=== PATIENT | female | born 1965 | race Caucasian/White ===

== ENCOUNTER 2016-10-24 11:15 | Emergency (ER) | payer BC ==
[~2016-10-24] VITALS: Ht 165.1 cm; Wt 62.7 kg
[2016-10-24 11:22] VITALS: TEMP 36.9; Ht 165.1 cm; Wt 62.7 kg
[2016-10-24 12:01] LABS: HEMATOCRIT 45.1 % (37-47); MEAN CELL VOLUME 94.9 fL (80-100); MEAN CORPUSCULAR HEMOGLOBIN 33.5 pg (25-34); MEAN CORPUSCULAR HGB CONC 35.3 g/dl (32-36); MEAN PLATELET VOLUME 10.6 fL (7.4-10.4); PLATELET COUNT 227 K/uL (130-400); RED BLOOD COUNT 4.75 M/uL (4.2-5.4); WHITE BLOOD COUNT 2.92 K/uL (4.8-10.8)
[2016-10-24 12:06] LABS: URINE APPEARANCE CLEAR (CLEAR); URINE BILIRUBIN NEG (NEG); URINE COLOR DK YELLOW; URINE EPITHELIAL CELL AUTO >30 /lpf (0-5); URINE NITRITE NEG (NEG); URINE PH >= 9.0 (4.5-7.5); UROBILINOGEN NEG (NEG); ZZUR CULT IF INDIC CLEAN CATCH YES
[2016-10-24 12:10] LABS: PROTHROMBIN TIME (PATIENT) 10.7 SECONDS (9.0-12.0)
[2016-10-24 12:12] LABS: SULFASALICYLIC ACID NEG (NEG)
--- NOTE | 2016-10-24 12:26 | DIAGNOSTIC IMAGING REPORT ---
CHEST ONE VIEW PORTABLE CLINICAL HISTORY: Atypical chest pain COMPARISON STUDY: 08/11/2014 FINDINGS: The cardiac and mediastinal contours are normal. There is no evidence of focal pulmonary consolidation. There is no evidence of failure. No pleural effusions are visualized.[ IMPRESSION: No active disease in the chest. Electronically signed by: Jorge Petty M.D. 10/24/2016 12:25 PM Dictated Date/Time: 10/24/2016 12:23 PM
[2016-10-24 12:27] LABS: MANUAL MICROSCOPIC REQUIRED? NO; REVIEW REQ? YES
[2016-10-24 12:30] LABS: ALB/GLOB RATIO 1.1 (0.9-2); ALKALINE PHOSPHATASE 60 U/L (45-117); ALT/SGPT 135 U/L (12-78); AST/SGOT 72 U/L (15-37); BLOOD UREA NITROGEN 8 mg/dl (7-18); BUN/CREATININE RATIO 12.6 (10-20); CALCIUM 9.1 mg/dl (8.5-10.1); CARBON DIOXIDE 27 mmol/L (21-32); CHLORIDE 106 mmol/L (98-107); CREATININE 0.66 mg/dl (0.60-1.20); GLUCOSE 92 mg/dl (70-99); POTASSIUM 4.1 mmol/L (3.5-5.1); SODIUM 143 mmol/L (136-145)
[2016-10-24] MEDS ORDERED: SODIUM CHLORIDE 0.9% 1000ML 1,000 ML IV STA ×2 (12:55)
[2016-10-24] MEDS ORDERED: KETOROLAC TROMETHAMINE 30 MG/ML VIAL IV STA (12:57)
--- NOTE | 2016-10-24 15:11 | EMERGENCY ROOM VISIT NOTE ---
History First contact with patient: 12:33 Chief Complaint: FLU LIKE SX Stated Complaint: CHEST PAIN, FLU Nursing Triage Summary: pt c/o n/v/d x2 days. pt c/o mid sternal chest pain that started this morning after throwing up. pt states she has hx of costachondritis. pt denies taking anything for pain [employer] History of Present Illness The patient is a 51 year old female who presents to the Emergency Room via private vehicle with complaints of "chest pain, flu". The patient states that 2 nights ago she developed stomach cramps, as well as nausea and vomiting. She states that this morning she felt shaky, and thirsty and had a low appetite. She states that she continues to feel thirsty and slightly shaky. She states she does not feel well. There is associated substernal chest pain that she rates as a 6/10. She states she has had this before and has a history of costochondritis. She states that she continually has substernal pain, but with the vomiting this morning is flared up. She this time denies any shortness of breath, abdominal pain, smoking, or drug use, history of PE or DVT, history of hypertension or high cholesterol. Review of Systems A complete 10-point Review of Systems was discussed with the patient, with pertinent positives and negatives listed in the History of Present Illness. All remaining Review of Systems questions can be considered negative unless otherwise specified. Past Medical/Surgical History Medical Problems: (1) Acute duodenal ulcer Family History Diabetes mellitus Heart disease Social History Smoking Status: Never Smoker Alcohol Use: occasionally Marital Status: Housing Status: lives with family Occupation Status: employed Current/Historical Medications No Active Prescriptions or Reported Meds Allergies Coded Allergies: Amoxicillin (Verified Allergy, Intermediate, RASH/HIVES, 11/09/15) Azithromycin (Verified Adverse Reaction, Mild, GI intolerance, 11/09/15) Physical Exam Vital Signs Date Time Temp Pulse Resp B/P Pulse Ox O2 Delivery O2 Flow Rate FiO2 10/24/16 16:15 85 18 106/65 96 10/24/16 14:35 68 20 136/82 97 Room Air 10/24/16 13:05 72 20 128/79 98 Room Air 10/24/16 12:06 98 Room Air 10/24/16 12:03 70 10/24/16 11:52 74 20 138/78 98 Room Air 10/24/16 11:22 36.9 78 18 135/83 97 Room Air Physical Exam VITAL SIGNS - Vital signs and nursing notes were reviewed. Patient is afebrile , normotensive, non-tachycardic and is saturating on room air 97%. GENERAL -51-year-old female appearing her stated age who is in no acute distress. She is nontoxic in appearance. Communicates well with provider and answers questions appropriately. SKIN - Without rashes. No petechial rashes. HEAD - NC/AT. EYES - PERRL with EOMI bilaterally. Sclera anicteric. Palpebral conjunctiva pink and moist with no injection noted. EARS - No deformities of external structures noted on gross examination bilaterally. No pain elicited with palpation of the tragus bilaterally. External auditory canals without discharge or otorrhea. Tympanic membranes pearly lechuga without retraction or bulging. No fluid or purulent material visualized behind the TM. Handle of malleus, umbo, cone of light, pars tensa/ flaccid all easily visualized. NOSE - Midline and without cyanosis. No epistaxis or purulent drainage noted. Septum midline without deviation or septal hematoma noted. MOUTH/OROPHARYNX - Without perioral cyanosis. Buccal mucosa pink and moist and without leukoplakia. Tongue midline with equal elevation of palate bilaterally. No tonsillar hypertrophy, erythema, or exudates noted. Good dentition noted. NECK - Neck with FROM. Supple to palpation. No lymphadenopathy noted. No nuchal rigidity. No meningismus. No signs of encephalitis. LUNGS - Chest wall symmetric without accessory muscle use, intercostals retractions, or central cyanosis. Normal vesicular breath sounds CTA B/L. No wheezes, rales, or rhonchi appreciated. CARDIAC - RRR with S1/S2. No murmur, rubs, or gallops appreciated. ABDOMEN - Abdominal contour without pulsations or visible masses. BS normoactive all four quadrants. No tenderness, palpable masses, hepatosplenomegaly, or ascites noted. EXTREMITIES - No clubbing or peripheral cyanosis. No pretibial edema present. +5 /5 strength noted in UE/LE bilaterally. NEUROLOGIC - Cranial nerves II through XII grossly intact. Sensory intact to light touch throughout. Patellar reflexes +2/4. PSYCH - Pt is very pleasant and interacts well with examiner. Medical Decision & Procedures ER Provider Diagnostic Interpretation: CHEST ONE VIEW PORTABLE CLINICAL HISTORY: Atypical chest pain COMPARISON STUDY: 08/11/2014 FINDINGS: The cardiac and mediastinal contours are normal. There is no evidence of focal pulmonary consolidation. There is no evidence of failure. No pleural effusions are visualized.[ IMPRESSION: No active disease in the chest. Electronically signed by: Jorge Petty M.D. 10/24/2016 12:25 PM Dictated Date/Time: 10/24/2016 12:23 PM Laboratory Results 10/24/16 11:40 10/24/16 11:40 Test 10/24/16 11:40 10/24/16 12:28 10/24/16 13:10 10/24/16 15:00 Red Blood Count 4.75 M/uL (4.2-5.4) Mean Corpuscular Volume 94.9 fL (80-100) Mean Corpuscular Hemoglobin 33.5 pg (25-34) Mean Corpuscular Hemoglobin Concent 35.3 g/dl (32-36) RDW Standard Deviation 42.7 fL (36.4-46.3) RDW Coefficient of Variation 12.3 % (11.5-14.5) Mean Platelet Volume 10.6 fL (7.4-10.4) Prothrombin Time 10.7 SECONDS (9.0-12.0) Prothromb Time International Ratio 1.0 (0.9-1.1) Activated Partial Thromboplast Time 25.2 SECONDS (21.0-31.0) Partial Thromboplastin Ratio 1.0 Urine Color DK YELLOW Urine Appearance CLEAR (CLEAR) Urine pH >= 9.0 (4.5-7.5) Urine Specific [place] 1.020 (1.000-1.030) Urine Protein NEG (NEG) Urine Glucose (UA) NEG (NEG) Urine Ketones NEG (NEG) Urine Occult Blood NEG (NEG) Urine Nitrite NEG (NEG) Urine Bilirubin NEG (NEG) Urine Urobilinogen NEG (NEG) Urine Leukocyte Esterase NEG (NEG) Urine WBC (Auto) 10-30 /hpf (0-5) Urine RBC (Auto) 0-4 /hpf (0-4) Urine Hyaline Casts (Auto) 5-10 /lpf (0-5) Urine Epithelial Cells (Auto) >30 /lpf (0-5) Urine Bacteria (Auto) 2+ (NEG) Urine Renal Epithelial Cells 5-10 /lpf (0-5) Anion Gap 10.0 mmol/L (3-11) Est Creatinine Clear Calc Drug Dose 89.7 ml/min Estimated GFR () 117.7 Estimated GFR (Non- 101.6 BUN/Creatinine Ratio 12.6 (10-20) Calcium Level 9.1 mg/dl (8.5-10.1) Total Bilirubin 0.3 mg/dl (0.2-1) Aspartate Amino Transf (AST/SGOT) 72 U/L (15-37) Alanine Aminotransferase (ALT/SGPT) 135 U/L (12-78) Alkaline Phosphatase 60 U/L (45-117) Total Creatine Kinase 55 U/L (26-192) Creatine Kinase MB < 0.5 ng/ml (0.5-3.6) Creatine Kinase MB Ratio (0-3.0) Total Protein 7.5 gm/dl (6.4-8.2) Albumin 4.0 gm/dl (3.4-5.0) Globulin 3.5 gm/dl (2.5-4.0) Albumin/Globulin Ratio 1.1 (0.9-2) Bedside Troponin I 0.000 ng/ml (0-0.045) Influenza Type A Antigen Neg for Influ A (NEG) Influenza Type B Antigen Neg for Influ B (NEG) Troponin I < 0.015 ng/ml (0-0.045) Medications Administered Medications (Trade) Dose Ordered Sig/Sosa Route Start Time Stop Time Status Last Admin Dose Admin Sodium Chloride 1,000 ml @ 999 mls/hr Q1H1M STAT IV 10/24/16 12:55 10/24/16 13:55 DC 10/24/16 12:59 999 MLS/HR Sodium Chloride (Nss 1000ml) 1,000 ml @ 200 mls/hr Q5H STAT IV 10/24/16 12:55 10/24/16 16:28 DC 10/24/16 12:59 200 MLS/HR Ketorolac Tromethamine (Toradol Inj) 30 mg NOW STAT IV 10/24/16 12:57 10/24/16 12:58 DC 10/24/16 13:07 30 MG Medical Decision Patient was seen in a fight with his above. After obtaining a thorough history and physical examination IV access was initiated and a CBC, coagulation studies , CMP, urine influenza as well as amylase and lipase secondary to subjective and objective findings. The patient presents with chest pain and general malaise which the patient notes feels exactly like her costochondritis however given her other symptoms is concerned that it could be her heart. She requests testing for her heart. CBC reveals a decreased white blood cell count at 2.92, hemoglobin stable. Coagulation studies normal. CMP reveals normal electrolytes and renal function. There is an interval elevation of AST and nail to yet 70-135 respectively. Troponin was negative 3. EKG reveals normal sinus rhythm with no significant change compared to previous. A d-dimer was ordered but the patient declined this. She feels that this is her costochondritis. Given her troponin negative 3 I do not suspect any emergent cardiac etiology. She was provided Toradol and was allowed to eat and drink as well as hydrated with IV fluids with good relief. She then stated she like to go home as she felt much better. Chest x-ray results as above, within normal limits. The patient appears to have a history of costochondritis as well as a likely viral underlying illness with a low white blood cell count. She also has interval development of elevated liver enzymes. She was instructed to follow-up with her family doctor for recheck as well as repeat of her white blood cell count and liver enzymes. She denied any Tylenol use recently. She does know she is drinking multiple bottles of wine per week. She was instructed to slowly cut back on this. I do not suspect any emergent underlying cause of her presentation today. She was educated upon worrisome symptoms which to return, at questions prior to discharge and was discharged home in good condition. In the evaluation treatment this patient the following differential diagnoses were entertained: ACS, [place], PE, costochondritis, anxiety, pneumonia, pneumothorax , dissection, among others. Impression Primary Impression: Influenza-like symptoms Additional Impressions: low white blood cell count Elevated LFTs Chest wall discomfort Departure Information Dispostion Home / Self-Care Condition GOOD Prescriptions No Active Prescriptions or Reported Meds Referrals Mariusz Vela M.D. (PCP) Patient Instructions My [facility] Additional Instructions You were seen in the emergency department for your influenza-like symptoms and chest pain. EKG and heart chemicals have helped to rule out emergent heart causes. Your liver function tests were found to be elevated in your white blood cell count was low today. It is recommended he have these repeated with your family doctor by calling their office later today or first thing tomorrow to schedule follow-up. Please follow-up with your family doctor regarding today's visit. Please return to the emergency department with any new/concerning symptoms. Problem Qualifiers
[2016-10-24 16:15] VITALS: BP 106/65; PULSE 85; O2SAT 96
== END 2016-10-24 16:16 | disposition home or self-care (01) ==
LOC: C.EDB 11:17 → C.EDC 16:16
DX: R07.89 Other chest pain (principal); J11.1 Influenza due to unidentified influenza virus with other respiratory manifestations; E78.5 Hyperlipidemia, unspecified; D72.9 Disorder of white blood cells, unspecified; Z88.1 Allergy status to other antibiotic agents; Z88.2 Allergy status to sulfonamides; Z83.3 Family history of diabetes mellitus; Z82.49 Family history of ischemic heart disease and other diseases of the circulatory system

== ENCOUNTER 2019-04-09 07:24 | Observation (INO) ==
[2019-04-09] MEDS ORDERED: ASPIRIN CHEW 324 MG PO STA (07:42)
[2019-04-09] MEDS ORDERED: ONDANSETRON INJ 2 MG/ML 2 ML VIAL IV STA ×2 (07:42→08:26)
[2019-04-09] MEDS ORDERED: MoRPHine SULFATE 2 MG/ML CARP IV STA ×3 (07:42→10:58)
[2019-04-09 07:53] LABS: Basophils # (auto) 0.02 K/uL (0-0.2); Basophils % (auto) 0.4 %; Eosinophils # (auto) 0.06 K/uL (0-0.5); Eosinophils % (auto) 1.1 %; Hematocrit (blood only) 46.1 % (37-47); Hemoglobin 15.8 g/dL (12.0-16.0); Immature Granulocytes # (auto) 0.02 K/uL (0.00-0.02); Immature Granulocytes % (auto) 0.4 %; Lymphocytes # (auto) 2.14 K/uL (1.2-3.4); Lymphocytes % (auto) 37.6 %; Mean Corpuscular Hgb Conc 34.3 g/dL (32-36); Mean Corpuscular Volume 90.6 fL (80-100); Mean Platelet Volume 10.3 fL (7.4-10.4); Monocytes % (auto) 5.3 %; Neutrophils # (auto) 3.15 K/uL (1.4-6.5); Neutrophils % (auto) 55.2 %; Platelet Count 192 K/uL (130-400); RDW Coefficient of Variation 13.5 % (11.5-14.5); RDW Standard Deviation 44.6 fL (36.4-46.3); Red Blood Count 5.09 M/uL (4.2-5.4); White Blood Count 5.69 K/uL (4.8-10.8)
[2019-04-09 08:00] LABS: Albumin Level 4.3 gm/dl (3.4-5.0); BUN Creatinine Ratio 14.5 (10-20); Calcium 9.1 mg/dl (8.5-10.1); Creatinine Clr Calc Pharmacy 71.5 ml/min; Est GFR (African American) 96.2; Potassium 3.4 mmol/L (3.5-5.1)
[2019-04-09 08:03] LABS: Albumin Globulin Ratio 1.2 (0.9-2); Bilirubin,Total 0.6 mg/dl (0.2-1); Globulin 3.5 gm/dl (2.5-4.0); Total Protein 7.8 gm/dl (6.4-8.2)
[2019-04-09 08:04] LABS: Partial Thromboplastin Ratio 0.9; Partial Thromboplastin Time 24.3 Seconds (21.0-31.0)
[2019-04-09 08:05] LABS: D Dimer 2440 ug/L FEU (0-500)
--- NOTE | 2019-04-09 08:10 | XRay Report ---
SINGLE VIEW CHEST CLINICAL HISTORY: Atypical chest pain. FINDINGS: An AP, portable, upright chest radiograph is compared to study dated 10/15/2018. The cardiom ediastinal silhouette is unremarkable. The lungs and pleural spaces are clear. No pneumothorax is see n. The bony thorax is grossly intact. There is thoracolumbar scoliosis. IMPRESSION: No active disease in the chest. Electronically signed by: Kale De Jesus M.D. 04/09/2019 8:08 AM
[2019-04-09 08:20] LABS: Troponin I < 0.015 ng/ml (0-0.045)
[2019-04-09 08:24] LABS: Lyme Ab IgG w/WB Rflx Negative (Negative)
[2019-04-09 08:30] LABS: Lyme Ab IgM w/WB Rflx Negative (Negative)
[2019-04-09] MEDS ORDERED: OPTIRAY 320 125ml IV PRN (08:52)
--- NOTE | 2019-04-09 09:01 | Emergency Department Note ---
History of Present Illness General Chief complaint: Chest Pain Stated complaint: CHEST PAIN AND DIZZY Time Seen by Provider: 04/09/19 07:36 History of Present Illness Maximum Pain Intensity: 7 This is a 54-year-old female that presents to the emergency department via private vehicle with complaints of "chest pain and dizziness". The patient states that she over the past few days has not felt well and notes she has been under a lot of stress. She states that she awoke today around 5 AM with chest pressure, and pain throughout the diffuse chest. She rates the overall pain in the chest currently as a 7/10. She notes a history of costochondritis but this feels different. She notes a significant past medical history in the family noting that her brother at age 55 from heart and kidney related elements and her mother passed age of 72 from a heart failure. She notes that her father also had bypass surgery for the heart. With her chest pain today she has associated shortness of breath and feels quite nauseous. She did have some vomiting. She denies any spicy foods in the past 12 hours and only sips of water. She denies any other beverages and denies alcohol use in the past 12 hours. She has never felt like this before. Home Medications Home Medications Medication Instructions Recorded Confirmed Type lorazepam 0.5 mg PO BID PRN 10/15/18 04/09/19 History multivitamin 1 tab PO QAM 10/15/18 04/09/19 History fluoxetine 20 mg PO QAM 04/09/19 04/09/19 History Allergies Allergy/AdvReac Type Severity Reaction Status Date / Time amoxicillin Allergy Intermediate RASH/HIVES Verified 04/09/19 08:13 mivacurium AdvReac Mild GI Verified 04/09/19 08:13 intolerance Past Med/Surg History Medical History Alcohol use (Chronic) Anxiety and depression (Chronic) Alcoholism Chest pain (Acute) Alcoholic gastritis (Resolved) Family History Brother Coronary heart disease Fatal CT age 55 Diabetes Father Coronary heart disease Diabetes Hypertension Mother Coronary heart disease Social History Preferred Language: Swedish Communication Ability: Effective Visual Impairment: No Limitations 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: Normal Entry Specialist Required: No Beliefs That Will Affect Care: None Current Living Situation: Spouse Other Information That Helps Us Care for You: No Feels Safe at Home: Yes Safety Concerns: Feels Safe At This Time Smoking Status: Never smoker Do You Dip or Chew Tobacco: No ; Second Hand Exposure: No ; Tobacco Cessation Education Requested by Patient: No Hx Alcohol Use: Yes Alcohol type: wine Hx Substance Use: No Review of Systems A total of 10 systems reviewed and were otherwise negative Physical Exam Vital Signs Vital Signs - 24 hr 04/09/19 07:29 04/09/19 07:32 04/09/19 07:51 Temperature 36.8 C Temperature Source Oral Sepsis Recent Fever Within 48 Hours No Sepsis Action Taken by Nursing No Action Required Pulse Rate 122 H Pulse Rate [Right Finger] 94 H Respiratory Rate 22 20 Respiratory Effort / Characteristics Non-Labored Spontaneous Non-Labored Respiratory Depth Normal Normal Blood Pressure 148/101 H Blood Pressure [Right Arm] 127/78 Blood Pressure Mean 116 Blood Pressure Mean [Right Arm] 94 Blood Pressure Position Sitting Pulse Oximetry 96 97 Oxygen Delivery Method Room Air Room Air Room Air 04/09/19 07:59 04/09/19 08:30 04/09/19 09:02 Temperature Temperature Source Sepsis Recent Fever Within 48 Hours Sepsis Action Taken by Nursing Pulse Rate Pulse Rate [Right Finger] 88 78 84 Respiratory Rate 20 18 20 Respiratory Effort / Characteristics Non-Labored Respiratory Depth Normal Blood Pressure Blood Pressure [Right Arm] 138/85 119/72 118/70 Blood Pressure Mean Blood Pressure Mean [Right Arm] 102 87 86 Blood Pressure Position Pulse Oximetry 96 96 95 Oxygen Delivery Method Room Air Room Air Room Air 04/09/19 10:00 04/09/19 10:30 Temperature Temperature Source Sepsis Recent Fever Within 48 Hours Sepsis Action Taken by Nursing Pulse Rate Pulse Rate [Right Finger] 86 Respiratory Rate 14 20 Respiratory Effort / Characteristics Respiratory Depth Blood Pressure Blood Pressure [Right Arm] 128/74 119/72 Blood Pressure Mean Blood Pressure Mean [Right Arm] 92 87 Blood Pressure Position Pulse Oximetry 98 98 Oxygen Delivery Method Room Air Room Air VITAL SIGNS - Vital signs and nursing notes were reviewed. Stable and afebrile. GENERAL - 54-year-old female appearing her stated age who is in no acute distress. There is a smell of alcohol on the breath. Communicates well with provider and answers questions appropriately. SKIN - Without rashes. No meningeal or petechial rash. HEAD - NC/AT. EYES - PERRL with EOMI bilaterally. Sclera anicteric. EARS - No deformities of external structures noted on gross examination bilaterally. External auditory canals without discharge or otorrhea. Tympanic membranes pearly lechuga without retraction or bulging. No fluid or purulent material visualized behind the TM. Handle of malleus, umbo, cone of light, pars tensa/flaccid all easily visualized. NOSE - Midline and without cyanosis. No epistaxis or purulent drainage noted. Septum midline without deviation or septal hematoma noted. MOUTH/OROPHARYNX - Without perioral cyanosis. Buccal mucosa pink and moist and without leukoplakia. Tongue midline with equal elevation of palate bilaterally. No tonsillar hypertrophy, erythema, or exudates noted. Fair dentition noted. NECK - Neck with FROM. Supple to palpation. No lymphadenopathy noted. No nuchal rigidity. LUNGS - Chest wall symmetric without accessory muscle use, intercostals retractions, or central cyanosis. Normal vesicular breath sounds CTA B/L. No wheezes, rales, or rhonchi appreciated. CARDIAC - RRR with S1/S2. No murmur, rubs, or gallops appreciated. ABDOMEN - Abdominal contour normal without pulsations or visible masses. BS normoactive all four quadrants. No tenderness, palpable masses, hepatosplen omegaly, or ascites noted. EXTREMITIES - No clubbing or peripheral cyanosis. No pretibial edema present. +5/5 strength noted in UE/LE bilaterally. NEUROLOGIC - Cranial nerves II through XII grossly intact. Sensory intact to light touch throughout. PSYCH - A&O, and cooperates fully with examiner. Pt is very pleasant and interacts well with examiner. Course Administered Medications Discontinued Medications Aspirin (Aspirin) 324 mg PO NOW STA Stop: 04/09/19 07:43 Last Admin: 04/09/19 07:52 Dose: 324 mg Documented by: [id number] Ioversol (Optiray 320 125ml) 119 ml IV ONCE PRN PRN Reason: Interaction Checking Stop: 04/13/19 08:51 Last Admin: 04/09/19 08:53 Dose: 119 ml Documented by: [id number] Morphine Sulfate (Morphine Sulfate) 2 mg IV NOW STA Stop: 04/09/19 07:43 Last Admin: 04/09/19 07:52 Dose: 2 mg Documented by: [id number] Morphine Sulfate (Morphine Sulfate) 2 mg IV NOW STA Stop: 04/09/19 08:27 Last Admin: 04/09/19 08:31 Dose: 2 mg Documented by: [id number] Morphine Sulfate (Morphine Sulfate) 2 mg IV NOW STA Stop: 04/09/19 10:59 Last Admin: 04/09/19 11:07 Dose: 2 mg Documented by: [id number] Ondansetron HCl (Zofran) 4 mg IV NOW STA Stop: 04/09/19 07:43 Last Admin: 04/09/19 07:52 Dose: 4 mg Documented by: [id number] Ondansetron HCl (Zofran) 4 mg IV NOW STA Stop: 04/09/19 08:27 Last Admin: 04/09/19 08:30 Dose: 4 mg Documented by: [id number] Medical Decision Making Laboratory Data Result diagrams: 04/09/19 07:35 04/09/19 07:35 Lab Results 04/09/19 04/09/19 04/09/19 Range/Units 07:35 07:35 07:35 WBC 5.69 (4.8-10.8) K/uL RBC 5.09 (4.2-5.4) M/uL Hgb 15.8 (12.0-16.0) g/dL Hct 46.1 (37-47) % MCV 90.6 (80-100) fL MCH 31.0 (25-34) pg MCHC 34.3 (32-36) g/dL RDW Std Deviation 44.6 (36.4-46.3) fL RDW Coeff of Diamond 13.5 (11.5-14.5) % Plt Count 192 (130-400) K/uL MPV 10.3 (7.4-10.4) fL Immature Gran % (Auto) 0.4 % Neut % (Auto) 55.2 % Lymph % (Auto) 37.6 % [place] % (Auto) 5.3 % Eos % (Auto) 1.1 % Baso % (Auto) 0.4 % Immature Gran # (Auto) 0.02 (0.00-0.02) K/uL Neut # (Auto) 3.15 (1.4-6.5) K/uL Lymph # (Auto) 2.14 (1.2-3.4) K/uL [place] # (Auto) 0.30 (0.11-0.59) K/uL Eos # (Auto) 0.06 (0-0.5) K/uL Baso # (Auto) 0.02 (0-0.2) K/uL PT 10.0 (9.0-12.0) Seconds INR 1.0 (0.9-1.1) APTT 24.3 (21.0-31.0) Seconds PTT Ratio 0.9 D-Dimer 2440 H* (0-500) ug/L FEU Sodium 140 (136-145) mmol/L Potassium 3.4 L (3.5-5.1) mmol/L Chloride 98 (98-107) mmol/L Carbon Dioxide 28 (21-32) mmol/L Anion Gap 14.0 H (3-11) BUN 12 (7-18) mg/dl Creatinine 0.80 (0.6-1.2) mg/dl Est Cr Clr Drug Dosing 71.5 ml/min Est GFR ( Amer) 96.2 Est GFR (Non-Af Amer) 83.0 BUN/Creatinine Ratio 14.5 (10-20) Glucose 145 H (70-99) mg/dl Calcium 9.1 (8.5-10.1) mg/dl Magnesium 2.0 (1.8-2.4) mg/dl Total Bilirubin 0.6 (0.2-1) mg/dl AST 129 H (15-37) U/L ALT 117 H (12-78) U/L Alkaline Phosphatase 58 (45-117) U/L Troponin I (0-0.045) ng/ml Total Protein 7.8 (6.4-8.2) gm/dl Albumin 4.3 (3.4-5.0) gm/dl Globulin 3.5 (2.5-4.0) gm/dl Albumin/Globulin Ratio 1.2 (0.9-2) Lipase 119 (73-393) U/L TSH (0.300-4.500) uIu/ml Ethyl Alcohol mg/dL (0-3) mg/dl Lyme Disease IgG Ab (Negative) Lyme Disease IgM Ab (Negative) 04/09/19 04/09/19 04/09/19 Range/Units 07:35 07:35 08:20 WBC (4.8-10.8) K/uL RBC (4.2-5.4) M/uL Hgb (12.0-16.0) g/dL Hct (37-47) % MCV (80-100) fL MCH (25-34) pg MCHC (32-36) g/dL RDW Std Deviation (36.4-46.3) fL RDW Coeff of Diamond (11.5-14.5) % Plt Count (130-400) K/uL MPV (7.4-10.4) fL Immature Gran % (Auto) % Neut % (Auto) % Lymph % (Auto) % [place] % (Auto) % Eos % (Auto) % Baso % (Auto) % Immature Gran # (Auto) (0.00-0.02) K/uL Neut # (Auto) (1.4-6.5) K/uL Lymph # (Auto) (1.2-3.4) K/uL [place] # (Auto) (0.11-0.59) K/uL Eos # (Auto) (0-0.5) K/uL Baso # (Auto) (0-0.2) K/uL PT (9.0-12.0) Seconds INR (0.9-1.1) APTT (21.0-31.0) Seconds PTT Ratio D-Dimer (0-500) ug/L FEU Sodium (136-145) mmol/L Potassium (3.5-5.1) mmol/L Chloride (98-107) mmol/L Carbon Dioxide (21-32) mmol/L Anion Gap (3-11) BUN (7-18) mg/dl Creatinine (0.6-1.2) mg/dl Est Cr Clr Drug Dosing ml/min Est GFR ( Amer) Est GFR (Non-Af Amer) BUN/Creatinine Ratio (10-20) Glucose (70-99) mg/dl Calcium (8.5-10.1) mg/dl Magnesium (1.8-2.4) mg/dl Total Bilirubin (0.2-1) mg/dl AST (15-37) U/L ALT (12-78) U/L Alkaline Phosphatase (45-117) U/L Troponin I < 0.015 (0-0.045) ng/ml Total Protein (6.4-8.2) gm/dl Albumin (3.4-5.0) gm/dl Globulin (2.5-4.0) gm/dl Albumin/Globulin Ratio (0.9-2) Lipase (73-393) U/L TSH 0.744 (0.300-4.500) uIu/ml Ethyl Alcohol mg/dL 233.9 H (0-3) mg/dl Lyme Disease IgG Ab Negative (Negative) Lyme Disease IgM Ab Negative (Negative) Imaging Data Radiologist's Impression: CT angio chest PE protocol CLINICAL HISTORY: 54 years-old Female presenting with atypical chest pain, dyspnea, tachycardia, elevated d-dimer, shortness of breath. TECHNIQUE: Multidetector CT angiography of the chest was performed after administration of intravenous contrast. 3-D volumetric and/or maximum intensity projection (MIP) images were subsequently reconstructed for review. IV contrast: 119 mL of Optiray 320. One or more dose lowering techniques were used consistent with the principles of ALARA (as low as reasonably achievable), including automatic exposure control, mA or kV adjustment to individual patient size, and/or use of iterative reconstruction. COMPARISON: CTA chest from 08/11/2014. CT DOSE (mGy.cm): The estimated cumulative dose is 219.09 mGy.cm. FINDINGS: Police Justice topogram: Unremarkable. Pulmonary vasculature: The study is adequate for assessment of the pulmonary vascular tree. No filling defect within the pulmonary arteries to suggest embolus. Main pulmonary artery mildly enlarged measuring 3.1 cm in maximal diameter. No flattening of the interventricular septum. No intracardiac filling defect. No reflux of contrast into the hepatic veins. Remaining chest: Soft tissues: Normal thyroid and thoracic inlet. No axillary, supraclavicular, mediastinal, or hilar lymphadenopathy. Normal aorta. Normal heart size. No pericardial or pleural effusion. Hepatic steatosis. Lungs and airways: No pneumothorax. Central airways patent. Pulmonary arteries are not significantly enlarged relative to adjacent bronchi. No interlobular septal thickening. Minimal dependent changes likely atelectasis. Musculoskeletal: Scoliotic curvature of the thoracic spine. IMPRESSION: 1. No evidence of pulmonary embolus. 2. Mild main pulmonary artery enlargement could suggest pulmonary hypertension. 3. No other evidence of acute intrathoracic pathology. Electronically signed by: Mariusz Jerry M.D. 04/09/2019 9:09 AM SINGLE VIEW CHEST CLINICAL HISTORY: Atypical chest pain. FINDINGS: An AP, portable, upright chest radiograph is compared to study dated 10/15/2018. The cardiomediastinal silhouette is unremarkable. The lungs and pleural spaces are clear. No pneumothorax is seen. The bony thorax is grossly intact. There is thoracolumbar scoliosis. IMPRESSION: No active disease in the chest. Electronically signed by: Kale De Jesus M.D. 04/09/2019 8:08 AM MDM Narrative Patient was seen and evaluated as above in room B12. Review was performed of nursing notes and vital signs. After obtaining a thorough history and physical examination the above work up was performed. She presents to us today with chest pain. She notes she awoke around 5 AM with this and it is pressure-like in nature. She is worried she is having a heart attack. There is a strong family history. She appears slightly agitated, and I was informed by the nurse that the patient was unfortunately quite upset in triage. Upon my entrance in the exam room she is resting comfortably and there is her at bedside she states. I obtained a history and physical examination. She denies any alcohol use in the past 12 hours however there was a very strong smell of alcohol on the patient's breath. Her vital signs were stable. IV access was established. CBC reveals no leukocytosis or anemia and no coagulopathy noted. Elevation of d- dimer noted above 2000. Mild hypokalemia. There is elevation of AST and ALT consistent likely with the patient's alcohol use. Lipase and TSH are normal. Medical alcohol level 233. Lyme disease negative. I then went to tell the patient the results of her CBC and CMP and as I began talking about the liver she became upset, and noted that she would like her to step out of the room. He was then shown in the waiting room. I then talk with the patient and informed her upon the alcohol level as well. It was then that she became slightly tearful and noted that she has been under a lot of stress, that her has Alzheimer's and she is taking care of him and is concerned that he may not understand. She notes that she has been drinking wine and had an alcohol problem in the past. Despite this, I will note that the patient does seem sober and her mannerisms at this time and question if she has a chronic alcohol consumption ailment. I did treat the patient's symptoms as if they could be cardiac upon initial presentation with aspirin, IV morphine and Zofran for nausea. She was reevaluated with persistence of symptoms. I will note that upon examination the patient had an EKG that per my interpretation revealed normal sinus rhythm, rate of 96 bpm. There is no evidence of ST segment susan vation or any emergent evidence. When compared with previous EKG, there is questionable change now in the anterior leads. I will note the patient's troponin here is negative. I do believe that given the patient's past medical history, the patient's strong family history, her symptoms here today that further evaluation and management in the inpatient setting is warranted and the patient is in agreement. This was discussed with the attending physician as well as the hospitalist. Please refer to further documentation regarding the patient's stay. GCS: 15 In the evaluation and treatment of this patient, the following differential diagnoses were considered: CT, ASC, Dysrhythmia, Angina, Mediastinitis, GERD, Esophagitis, PE, Pneumonia, Bronchitis, Costochondritis, Rib Fracture, Zoster. Impression & Plan Chest pain, Alcohol use, Hypokalemia Discharge Plan Visit Data *Final* Discharge Date/Time: 04/09/19 11:05 Chief Complaint: Chest Pain Stated Complaint: CHEST PAIN AND DIZZY ED Provider: Kevyn Candelario ED Midlevel Provider: Bear Lemon Discharge Problem: Chest pain, Alcohol use, Hypokalemia Patient Disposition: Admitted As Inpatient Discharge Instructions Interventions: ED Discharge Assessment Last Done: 04/09/19 11:05
--- NOTE | 2019-04-09 09:10 | CT Scan Report ---
CT angio chest PE protocol CLINICAL HISTORY: 54 years-old Female presenting with atypical chest pain, dyspnea, tachycardia, elev ated d-dimer, shortness of breath. TECHNIQUE: Multidetector CT angiography of the chest was performed after administration of intravenou s contrast. 3-D volumetric and/or maximum intensity projection (MIP) images were subsequently reconst ructed for review. IV contrast: 119 mL of Optiray 320. One or more dose lowering techniques were used consistent with the principles of ALARA (as low as reasonably achievable), including automatic expos ure control, mA or kV adjustment to individual patient size, and/or use of iterative reconstruction. COMPARISON: CTA chest from 08/11/2014. CT DOSE (mGy.cm): The estimated cumulative dose is 219.09 mGy.cm. FINDINGS: [employer] topogram: Unremarkable. Pulmonary vasculature: The study is adequate for assessment of the pulmonary vascular tree. No filling defect within the pul monary arteries to suggest embolus. Main pulmonary artery mildly enlarged measuring 3.1 cm in maximal diameter. No flattening of the interventricular septum. No intracardiac filling defect. No reflux of contrast into the hepatic veins. Remaining chest: Soft tissues: Normal thyroid and thoracic inlet. No axillary, supraclavicular, mediastinal, or hilar lymphadenopathy. Normal aorta. Normal heart size. No pericardial or pleural effusion. Hepatic steatos is. Lungs and airways: No pneumothorax. Central airways patent. Pulmonary arteries are not significantly enlarged relative to adjacent bronchi. No interlobular septal thickening. Minimal dependent changes l ikely atelectasis. Musculoskeletal: Scoliotic curvature of the thoracic spine. IMPRESSION: 1. No evidence of pulmonary embolus. 2. Mild main pulmonary artery enlargement could suggest pulmonary hypertension. 3. No other evidence of acute intrathoracic pathology. Electronically signed by: Mariusz Jerry M.D. 04/09/2019 9:09 AM
--- NOTE | 2019-04-09 10:27 | History & Physical Report ---
Date of Service April 09, 2019 Assessment & Plan (1) Chest pain: Pt is 54 y/o F with PMH of anxiety, depression, alcohol use presented with complaint of chest pain this morning with associated SOB, nausea, vomiting x 1. Denies dizziness, palpitations, diaphoresis, cough, fever chills. In ER pt afebrile, Pulse initially 122 down to 84, R initially 22 down to 20, BP: 148/101 down to 118/70, 96% on RA. It is reported pt was agitated upon initial ER presentation but quickly settled after brought to exam room. No leukocytosis, D Dimer: 2440, initial troponin negative. EKG: sinus rhythm, rate 96, possible Q waves inferior leads (seen in prior EKG also), No ST elevation CTA chest: No evidence of pulmonary embolus. Mild main pulmonary artery enlargement could suggest pulmonary hypertension. DDX: R/O ACS risk factor FH CAD vs musculoskeletal etiology vs gastritis/esophagitis vs anxiety At this time probable musculoskeletal secondary to reproducible tenderness on exam -In ER pt given ASA 324mg po, zofran, and morphine with reported decreased chest pressure. -Monitor Vitals -Repeat EKG in am -Will trend troponin -Resting echo -lipid panel in AM (2) Hypokalemia: K: 3.4 -Replace and monitor (3) Alcohol use: Hx prior alcohol abuse and current alcohol use. Pt vague at her current alcohol use and amount Last drink evening of 04/08/19 ETOH: 233 -Monitor for alcohol withdrawal -Multivitamin, Thiamine, Folic acid supplement -Encourage alcohol cessation (4) Anxiety and depression: Denies suicidal ideations -Continue fluoxetine, ativan as needed -Continue follow up with outpatient psychiatrist - Dr Doyle DVT Prophylaxis -SCDs Disposition Home, likely tomorrow Follows with Dr Vela for routine care Pt was seen and care coordinated with Dr Waldrop. See addendum. History of Present Illness Primary Care Provider: Dr Vela Pt is 54 y/o F with PMH of anxiety, depression, alcohol use presented to ER with complaint of chest pain. Patient states woke up 5 AM today with anterior chest pressure with associated nausea and shortness of breath. Reports chest pressure was 9/10. No prior treatment attempted. Reports vomited once. Denies dizziness, palpitations, cough, fever chills. Patient with history of alcohol use and alcohol abuse in past. Patient very vague about how much she drinks. Patient reports she drinks wine but cannot quantify the amount or specifically how often. Reports " does not feel drinks too much". Patient denies history of alcohol withdrawal or seizures. Patient has been following with psychiatry, Dr. Doyle outpatient. Patient reports on Prozac and feels little better however still has depression symptoms. Denies any suicidal or homicidal ideations. Patient admits to stress with diagnosis of dementia with her . Reports hx costochondritis in past however this chest pressure feels different. Pt reports is physically active and walks almost every day and has executive personal assistant that works out with doing swimming and other exercises and denies any history of CP or SOB with activity in past. Denies fever/chills, diaphoresis, hematemesis, melena, hematochezia, ANAYA, vision changes, neck pain, orthopnea, palpitations, cough, sore throat, choking, otalgia, rhinorrhea, abdominal pain, indigestion, paresthesias, weakness, extremity weakness, extremity edema, rashes, urinary symptoms. Allergies Allergy/AdvReac Type Severity Reaction Status Date / Time amoxicillin Allergy Intermediate RASH/HIVES Verified 04/09/19 08:13 mivacurium AdvReac Mild GI Verified 04/09/19 08:13 intolerance Home Medications Home Medications Medication Instructions Recorded Confirmed Type lorazepam 0.5 mg PO BID PRN 10/15/18 04/09/19 History multivitamin 1 tab PO QAM 10/15/18 04/09/19 History fluoxetine 20 mg PO QAM 04/09/19 04/09/19 History Past Med/Surg History Medical History Alcohol use (Chronic) Anxiety and depression (Chronic) Alcoholism Chest pain (Acute) Alcoholic gastritis (Resolved) Family History Brother Coronary heart disease Fatal [place] age 55 Diabetes Father Coronary heart disease Diabetes Hypertension Mother Coronary heart disease Social History Preferred Language: Wolof Communication Ability: Effective Visual Impairment: No Limitations 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: Normal 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: No Beliefs That Will Affect Care: None Current Living Situation: Spouse Other Information That Helps Us Care for You: No Feels Safe at Home: Yes Safety Concerns: Feels Safe At This Time Smoking Status: Never smoker Do You Dip or Chew Tobacco: No ; Second Hand Exposure: No ; Tobacco Cessation Education Requested by Patient: No Hx Alcohol Use: Yes Alcohol type: wine Hx Substance Use: No Review of Systems Review of Systems: All systems reviewed & are unremarkable except as noted in HPI & below Physical Exam Physical Exam: General: no acute distress, WDWN Head: normocephalic, atraumatic Eyes: PERRL, EOM's intact, conjunctiva non-injected, anicteric ENT: normal inspection external ears, nose, mucous membranes moist Neck: supple, trachea midline Lungs: clear, no respiratory distress, no wheezing/rhonchi/rales CV: RRR, no murmur, no pretibial edema Chest wall: No rashes, +tenderness to palpation mid to lower sternum Abd: normal BS, soft, non-tender Ext: no cyanosis, no calf tenderness Neuro: A&O x 3, no focal deficits noted, normal affect Skin: warm, dry Results & Data Vital Signs (Past 12 Hours) Vital Signs Temp Pulse Pulse Resp BP BP Pulse Ox 04/09/19 09:02 84 20 118/70 95 04/09/19 08:30 78 18 119/72 96 04/09/19 07:59 88 20 138/85 96 04/09/19 07:51 94 H 20 127/78 97 04/09/19 07:32 36.8 C 122 H 22 148/101 H 96 Laboratory Results Short CBC 04/09/19 04/09/19 Range/Units 07:35 07:35 WBC 5.69 (4.8-10.8) K/uL Hgb 15.8 (12.0-16.0) g/dL Hct 46.1 (37-47) % Plt Count 192 (130-400) K/uL Anion Gap 14.0 H (3-11) BMP 04/09/19 07:35 Sodium 140 Potassium 3.4 L Chloride 98 Carbon Dioxide 28 BUN 12 Creatinine 0.80 Glucose 145 H Calcium 9.1 Cardiac Enzymes 04/09/19 Range/Units 07:35 Troponin I < 0.015 (0-0.045) ng/ml Liver Function 04/09/19 Range/Units 07:35 Total Bilirubin 0.6 (0.2-1) mg/dl AST 129 H (15-37) U/L ALT 117 H (12-78) U/L Alkaline Phosphatase 58 (45-117) U/L Albumin 4.3 (3.4-5.0) gm/dl Diagnostic Findings CXR: IMPRESSION: No active disease in the chest. CTA CHEST: IMPRESSION: 1. No evidence of pulmonary embolus. 2. Mild main pulmonary artery enlargement could suggest pulmonary hypertension. 3. No other evidence of acute intrathoracic pathology. Supervising Physician Co-Signing Physician Notes Patient was seen and examined with Sarah WILSON. 54year old woman with history of anxiety, depression, alcohol abuse who presented with chest pressure on waking up at 5am, severe, not referred, associated with shortness of breath and one episode of vomiting. Chest pressure is reported to be different from her costochondritis pain. Other history as noted above. On presentation to ER, initial EKG did not show any changes suggestive of acute coronary syndrome (mostly unchanged from prior). Initial trop was <0.015 (@7:35am). Received ASA load and morphine. At the time of examination, she reported improvement in chest pressure. Physical exam was only remarkable for reproducible pain on palpation of lower half of sternum. The rest of the exam findings are as above. D-Dimer was elevated. Chest xray unremarkable. CT angio of chest was neg for PE but showed mild main pulm art enlargement suggestive of pulmonary hypertension. Chest pressure is atypical. This is unlikely due to ACS. May be related to costochondritis +/- anxiety. However, patient has family history of heart disease. Will trend troponin. Get 2D echo for further evaluation. Telemetry monitoring. Check A1c and lipid panel. Counselled patient extensively on alcohol use. CIWA is 2 at this time. Will monitor for withdrawal and manage appropriately. Folic acid and thiamine ordered Elevated liver enzymes likely related to alcohol use For depression/anxiety, will continue home medication and outpatient follow up with psychiatrist Dispo: Med with telemetry
[2019-04-09] MEDS ORDERED: LORazepam 0.5 MG TAB PO PRN (11:48)
[2019-04-09] MEDS ORDERED: ACETAMINOPHEN 325 MG TAB PO PRN (11:48)
[2019-04-09] MEDS ORDERED: POTASSIUM CHLORIDE 20 MEQ TABCR PO STA (11:48)
[2019-04-09] MEDS ORDERED: THIAMINE HCL 100 MG in SYRINGE 9 ML IV ONE (12:30)
[2019-04-09] MEDS: FLUOXETINE HCL 20 MG CAP PO SCH (14:40)
[2019-04-09] MEDS: FOLIC ACID 1 MG TAB PO SCH (14:40)
[2019-04-09] MEDS ORDERED: KETOROLAC TROMETHAMINE 15 MG/ML VIAL IV ONE (15:03)
[2019-04-09] MEDS ORDERED: FAMOTIDINE 20MG/5ML IV PUSH IV STA (15:03)
[2019-04-09] MEDS ORDERED: ONDANSETRON INJ 2 MG/ML 2 ML VIAL IV ONE (15:05)
[2019-04-09] MEDS ORDERED: FAMOTIDINE 20 MG in SYRINGE 3 ML IV STA (15:09)
[2019-04-09 16:39] LABS: Appearance Urine Clear (Clear); Bacteria Urine Automated Negative (Negative); Bilirubin Urine Negative (Negative); Blood Urine Negative (Negative); Color Urine Yellow; Epithelial Cell Urine Auto >30 /lpf (0-5); Glucose Urine UA Negative (Negative); Ketones Urine 1+ (Negative); Leukocyte Esterase Urine Negative (Negative); Nitrite Urine Negative (Negative); Specific Gravity Urine > 1.045 (1.000-1.030); Urobilinogen Urine Negative (Negative); pH Urine 7.5 (4.5-7.5)
[2019-04-09 16:45] LABS: Protein Urine Negative (Negative)
[2019-04-09 16:56] LABS: Cast Urine Automated 0 /lpf (0-5)
[2019-04-09] MEDS ORDERED: LORazepam 1 MG/2 ML VIAL IV PRN (21:22)
[2019-04-09] MEDS ORDERED: LORazepam 2 MG/4 ML VIAL ONE (22:21)
[2019-04-10 07:26] LABS: Chol HDL Ratio 2; Cholesterol 253 mg/dl (0-200); HDL Cholesterol 110 mg/dl; LDL Cholesterol Calculated 127 mg/dl; Triglycerides 79 mg/dl (0-150); VLDL Cholesterol 16 mg/dl
[2019-04-10 07:47] LABS: Estimated Average Glucose 108 mg/dl; Hemoglobin A1C 5.4 % (4.5-5.6)
[2019-04-10] MEDS ORDERED: MULTIVITAMIN TAB PO SCH (09:00)
[2019-04-10] MEDS ORDERED: THIAMINE HCL 100 MG TAB PO SCH (09:00)
[2019-04-10] MEDS: FLUOXETINE HCL 20 MG CAP PO SCH (09:11)
[2019-04-10] MEDS: FOLIC ACID 1 MG TAB PO SCH (09:11)
[2019-04-10 11:07] LABS: BUN Creatinine Ratio 19.1 (10-20); Calcium 8.9 mg/dl (8.5-10.1); Creatinine Clr Calc Pharmacy 77.3 ml/min; Est GFR (African American) 105.7; Est GFR (Non-African American) 91.2; Magnesium 1.8 mg/dl (1.8-2.4)
[2019-04-10] MEDS ORDERED: POTASSIUM CHLORIDE 10 MEQ TABCR PO STA (11:43)
[2019-04-10] MEDS ORDERED: POTASSIUM CHLORIDE 10 MEQ TABCR PO ONE (15:00)
--- NOTE | 2019-04-10 15:03 | Hospitalist Progress Note ---
Date of Service April 10, 2019 Assessment & Plan (1) Chest pain: Patient is a 54 yr female with H/O anxiety, depression, alcohol use, costochondritis presented with Chest pain associated with SOB, nausea, vomiting x 1. CTA:No evidence of pulmonary embolus. Mild main pulmonary artery enlargement could suggest pulmonary hypertension. No other evidence of acute intrathoracic pathology. H/O costochondritis Chest pain likely secondary to anxiety, musculoskeletal nausea Currently chest pain resolved Reproducible on palpation Troponin X 3: Negative EKG: Nonspecific ST changes ECHO: No segmental wall motion abnormalities Advised to follow up with Cardiology as outpatient (2) Hypokalemia: Replace and monitor (3) Alcohol use: Hx prior alcohol abuse and current alcohol use. Pt vague at her current alcohol use and amount Last drink evening of 04/08/19 ETOH: 233 Monitor for alcohol withdrawal Continue Multivitamin, Thiamine, Folic acid supplement Encourage alcohol cessation Patient currently not interested in inpatient alcohol rehab Resources provided for outpatient rehab (4) Anxiety and depression: Denies suicidal ideations Continue fluoxetine, ativan PRN Continue follow up with outpatient psychiatrist - Dr Doyle DVT Prophylaxis SCDs Disposition: Plan to discharge home today Subjective Patient is seen and examined at bedside States feeling much better today Denies any chest pain, shortness of breath, dizziness, nausea, abdominal pain Currently not interested in inpatient alcohol rehab Discussed with case management, provided resources for outpatient alcohol rehab Eager to get discharged Offers no other complaints No withdrawal symptoms Review of Systems Review of Systems: All systems reviewed & are unremarkable except as noted in HPI & below Physical Exam Physical Exam: Physical Exam: Vitals signs as noted above General Appearance:Moderately built and nourished, no apparent distress Head: normocephalic, Atraumatic Eyes: normal inspection, EOMI Neck: supple, Trachea midline Respiratory/Chest: Normal breath sounds, CTA Cardiovascular: S1, S2, No murmur, reproducible chest tenderness Abdomen/GI:Soft, Non tender, Bowel sounds present Extremities/Musculoskelatal:normal inspection, no edema Neurologic/Psych:AAOX3, grossly no focal neurological deficits Skin: normal color, warm Results & Data Vital Signs (Past 12 Hours) Vital Signs Temp Pulse Pulse Resp BP BP Pulse Ox 04/10/19 14:39 36.7 C 88 79 18 117/75 122/83 97 04/10/19 11:52 36.7 C 88 18 122/83 97 04/10/19 11:09 36.7 C 88 18 122/83 97 04/10/19 07:34 37.1 C 75 20 117/75 95 04/10/19 04:37 36.8 C 73 20 119/79 95 Laboratory Results [facility] 04/10/19 10:16 Sodium 136 Potassium 3.0 L Chloride 96 L Carbon Dioxide 31 BUN 14 Creatinine 0.74 Glucose 170 H Calcium 8.9 Cardiac Enzymes 04/09/19 Range/Units 18:45 Troponin I < 0.015 (0-0.045) ng/ml Urine 04/09/19 Range/Units 13:08 Urine Color Yellow Urine Appearance Clear (Clear) Urine pH 7.5 (4.5-7.5) Ur Specific [place] > 1.045 H (1.000-1.030) Urine Protein Negative (Negative) Urine Glucose (UA) Negative (Negative)
--- NOTE | 2019-04-10 15:14 | Discharge Summary ---
Date of Service April 10, 2019 Admission HPI Per Admitting Provider Pt is 54 y/o F with PMH of anxiety, depression, alcohol use presented to ER with complaint of chest pain. Patient states woke up 5 AM today with anterior chest pressure with associated nausea and shortness of breath. Reports chest pressure was 9/10. No prior treatment attempted. Reports vomited once. Denies dizziness, palpitations, cough, fever chills. Patient with history of alcohol use and alcohol abuse in past. Patient very vague about how much she drinks. Patient reports she drinks wine but cannot quantify the amount or specifically how often. Reports " does not feel drinks too much". Patient denies history of alcohol withdrawal or seizures. Patient has been following with psychiatry, Dr. Doyle outpatient. Patient reports on Prozac and feels little better however still has depression symptoms. Denies any suicidal or homicidal ideations. Patient admits to stress with diagnosis of dementia with her . Reports hx costochondritis in past however this chest pressure feels different. 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 Denies fever/chills, diaphoresis, hematemesis, melena, hematochezia, ANAYA, vision changes, neck pain, orthopnea, palpitations, cough, sore throat, choking, otalgia, rhinorrhea, abdominal pain, indigestion, paresthesias, weakness, extremity weakness, extremity edema, rashes, urinary symptoms. Admission Exam Per Admitting Provider General: no acute distress, WDWN Head: normocephalic, atraumatic Eyes: PERRL, EOM's intact, conjunctiva non-injected, anicteric ENT: normal inspection external ears, nose, mucous membranes moist Neck: supple, trachea midline Lungs: clear, no respiratory distress, no wheezing/rhonchi/rales CV: RRR, no murmur, no pretibial edema Chest wall: No rashes, +tenderness to palpation mid to lower sternum Abd: normal BS, soft, non-tender Ext: no cyanosis, no calf tenderness Neuro: A&O x 3, no focal deficits noted, normal affect Skin: warm, dry Principal Diagnosis Chest Pain Alcohol use disorder Discharge Data Allergies Allergy/AdvReac Type Severity Reaction Status Date / Time amoxicillin Allergy Intermediate RASH/HIVES Verified 04/09/19 08:13 mivacurium AdvReac Mild GI Verified 04/09/19 08:13 intolerance Consultations 04/09/19 09:26 ED Decision to Admit Stat Procedures Performed CTA: 1. No evidence of pulmonary embolus. 2. Mild main pulmonary artery enlargement could suggest pulmonary hypertension. 3. No other evidence of acute intrathoracic pathology. Ordered Studies 04/09/19 08:26 CT angio chest PE protocol Stat Hospital Course (1) Chest pain: Patient is a 54 yr female with H/O anxiety, depression, alcohol use, costochondritis presented with Chest pain associated with SOB, nausea, vomiting x 1. CTA:No evidence of pulmonary embolus. Mild main pulmonary artery enlargement co uld suggest pulmonary hypertension. No other evidence of acute intrathoracic pathology. H/O costochondritis Chest pain likely secondary to anxiety, musculoskeletal nausea Currently chest pain resolved Reproducible on palpation Troponin X 3: Negative EKG: Nonspecific ST changes ECHO: No segmental wall motion abnormalities Advised to follow up with Cardiology as outpatient (2) Hypokalemia: Replace and monitor (3) Alcohol use: Hx prior alcohol abuse and current alcohol use. Pt vague at her current alcohol use and amount Last drink evening of 04/08/19 ETOH: 233 Monitor for alcohol withdrawal Continue Multivitamin, Thiamine, Folic acid supplement Encourage alcohol cessation Patient currently not interested in inpatient alcohol rehab Resources provided for outpatient rehab (4) Anxiety and depression: Denies suicidal ideations Continue fluoxetine, ativan PRN Continue follow up with outpatient psychiatrist - Dr Doyle DVT Prophylaxis SCDs Disposition: Plan to discharge home today Total Time Total Time Spent Total Time Spent (In Minutes): 28 minutes Total Time Includes: Examination of the Patient, Discharge Planning, Medication Reconciliation, Communication With Other Providers and Other Discharge Plan Discharge Items Patient Disposition: Home - Self-Care Reason For Visit: CHEST PRESSURE Discharge Diagnosis: Chest Pain Alcohol use disorder Activity: Resume your previous activity Exercise/Sports: Gradually increase as tolerated Non-emergency contact: Primary Care Provider and Supervisor [employer] Call non-emergency contact if: you have any medication questions, your symptoms worsen, your pain is not controlled, your pain is worsening, your pain is unusual for you, your pain is concerning for you and you have a fever Follow-up/Referrals: Sunny Bowers PA-C [Primary Care Provider] - Diet: Heart Healthy Ambulatory Orders: Basic Metabolic Panel (Routine) Timeframe: [id number] Location: Determined by Patient Ordered By: Maximiliano Pacheco Attending Provider Instructions: Follow-up with your primary care physician Dr. Reeder on April 17, 2019 at 10:25 AM Follow-up with your quality control checker in 4 to 6 weeks as advised Get blood test (Basic metabolic Panel) in 1 week and follow up with your Physician Quit drinking alcohol as advised Seek immediate medical attention if your symptoms reoccur or worsen Pending Studies at Discharge: No Stand-Alone Forms: Call Back Authorization, [facility] Medications and DC Order Prescriptions: New thiamine HCl (vitamin B1) [Vitamin B-1] 100 mg Tablet 100 mg PO QAM Qty: 30 RF: 0 folic acid 1 mg Tablet 1 mg PO QAM 30 Days Qty: 30 RF: 0 potassium chloride 20 mEq tablet extended release 20 meq PO DAILY Qty: 7 RF: 0 Continued multivitamin Tablet 1 tab PO QAM RF: 0 lorazepam 0.5 mg tablet 0.5 mg PO BID PRN (Reason: Anxiety) RF: 0 fluoxetine 20 mg capsule 20 mg PO QAM RF: 0 Discharge Orders: Discharge Order (Routine); Ordered 04/10/19 Ordered By: Maximiliano Maldonado Admission Data Admit Date/Time: 04/09/19 10:34 Attending Provider: Maximiliano Maldonado Admit Provider: Mira Wladrop I. Primary Care Provider: Sunny Bowers Other Providers: Donna Everett Other Interventions: Discharge Summary Assessment (RN) Last Done: 04/10/19 14:39 DC Date/Time DO NOT enter until pt leaves facility: 04/10/19 15:28
== END 2019-04-10 15:28 | disposition home or self-care (01) ==
LOC: ED 07:24 → 2N 07:24 → SUATTDRO 10:34 → 2N 11:05

== ENCOUNTER 2020-11-24 21:26 | Inpatient (IN) ==
[2020-11-24] MEDS ORDERED: SODIUM CHLORIDE 0.9% 1000ML 1,000 ML IV STA (21:33)
[2020-11-24] MEDS ORDERED: ONDANSETRON INJ 2 MG/ML 2 ML VIAL IV STA (21:33)
--- NOTE | 2020-11-24 21:57 | Emergency Department Note ---
Impression & Plan Chest pain, Alcohol intoxication, Acidosis, metabolic, Abnormal EKG, Acute hypotension ED Provider Note NAME: LESLIE HANSEN AGE: 55 SEX: F : 1965 ARRIVES VIA: Ambulance INFORMANT: Patient, EMS personnel ED PROVIDER(S): Tiburcio Wright DO CHIEF COMPLAINT: Chest pain HPI: The patient is a 55-year-old female who presented to the emergency department by ambulance for an evaluation of chest pain. She states that she started having chest pain earlier in the day. She was drinking alcohol but describes anterior chest pain with pain in her back. She denies having any vomiting. She denies having any specific abdominal pain. She denies having any dysuria hematuria or frequency. The patient states the pain is constant and describes it as a discomfort. She received aspirin as well as nitro spray prior to arrival without any relief of her pain. The patient has not had similar symptoms in the past. She states that she has noticed no hematemesis or rectal bleeding. She states the pain is moderate to severe. ROS: See above HPI for pertinent positives & negatives. A total of 10 systems reviewed and were otherwise negative. PAST MEDICAL HISTORY: See Below PAST SURGICAL HISTORY: See Below FAMILY HISTORY: See Below SOCIAL HISTORY: See Below HOME MEDICATIONS: See Below ALLERGIES: See Below VITALS: See Below PHYSICAL EXAMINATION: GENERAL: The patient is awake and alert. The patient is somewhat anxious appearing. EYES: The conjunctivae are clear. The pupils are round and reactive. EARS, NOSE, MOUTH AND THROAT: The nose is without any evidence of any deformity. Mucous membranes are moist. Tongue is midline. NECK: The neck is nontender and supple. RESPIRATORY: Normal respiratory effort is noted there is no evidence of wheezing rhonchi or rales CARDIOVASCULAR: Tachycardic rate with regular rhythm was noted. There is no definite murmur. GASTROINTESTINAL: The abdomen is soft. Abdomen is nontender. MUSCULOSKELETAL/EXTREMITIES: There is no evidence of gross deformity full range of motion is noted in the hips and shoulders. SKIN: There is no obvious evidence of any rash. There are no petechiae, pallor or cyanosis noted. NEUROLOGIC: Patient is awake alert and oriented x3. MEDICAL DECISION MAKING: The patient is a 55-year-old female who presented to the emergency department by ambulance for an evaluation of chest pain. The patient was drinking alcohol earlier. She was intoxicated. She was treated with nitroglycerin and aspirin prior to arrival. Her abdominal exam was not consistent with an acute surgical abdomen. Given her EKG abnormalities and her tachycardia initially I was concerned that this could represent pulmonary venous thromboembolic disease. I discussed the patient's laboratory and radiographic studies with her. She was found to have an elevated D-dimer but a normal troponin. For this reason CT of the chest abdomen pelvis was obtained. There was no signs of pulmonary embolism or other intra-abdominal pathology. The patient was treated with IV fluids in the emergency department. She was found to have a low bicarbonate which likely represents the use of alcohol this evening. I discussed her case with the on- call [facility] hospitalist. They have agreed to evaluate the patient in the [facility] department for further management and disposition. Triage Nursing notes reviewed. Prior medical records reviewed Vital Signs: reviewed and remarkable for hypotension and tachycardia. Differential diagnosis: Cardiac ischemia, aortic dissection, pulmonary embolism, pneumothorax, pneumonia, pericarditis, myocarditis, esophageal rupture, GERD, cholecystitis, pancreatitis, musculoskeletal, as well as other pathologies. ER treatment provided: See below Diagnostics interpreted by me: ECG: EKG was obtained in the emergency department. My interpretation is sinus tachycardia at 118 bpm. There was no ectopy. Apical and lateral ST depressions were noted. Inferior Q waves were noted. There was no acute ST segment elevations noted. This was compared to a tracing from April 102018. The ST segment abnormalities are new compared to the earlier tracing. Cardiac Monitoring: An order was placed for continuous cardiac monitoring. The monitor shows a rate of 110 bpm with sinus tachycardia rhythm. Laboratory studies: As stated above and show below. Imaging studies: See below Consultation(s): 0030: I discussed this case with Dr Kincaid. Past Med/Surg History Medical History Alcohol use Alcoholic gastritis Alcoholism Anxiety and depression Chest pain Family History Brother Coronary heart disease Fatal DC age 55 Diabetes Father Coronary heart disease Diabetes Hypertension Mother Coronary heart disease Social History Smoking Status: Never smoker Second Hand Exposure: No; Hx Alcohol Use: Yes Alcohol type: wine Hx Substance Use: No Preferred Language: Amharic Communication Ability: Effective Visual Impairment: No Limitations 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: Normal Microbiology Technologist Required: No Beliefs That Will Affect Care: None Current Living Situation: Spouse Feels Safe at Home: Yes Assistive Devices: None Allergies Allergies Allergy/AdvReac Type Severity Reaction Status Date / Time amoxicillin Allergy Intermediate RASH/HIVES Verified 11/24/20 21:46 azithromycin AdvReac Gastrointestinal Verified 11/24/20 21:46 Upset Home Meds Home Medications Medication Instructions Recorded Confirmed No Known Home Medications 11/24/20 11/24/20 Results & Data (ED) Vital Signs Vital Signs - 24 hr 11/24/20 21:33 11/24/20 21:38 11/24/20 22:14 Temperature 37.0 C Temperature Source Oral Pulse Rate 112 H 116 H 94 H Pulse Rate from SpO2 Sensor 112 H 94 H Pulse Rhythm Regular Pulse Strength Normal Respiratory Rate 25 H 24 18 Respiratory Effort / Characteristics Non-Labored Spontaneous Respiratory Depth Normal Respiratory Pattern Regular Blood Pressure 115/59 L 115/59 L 97/45 L Blood Pressure Mean 77 77 62 Blood Pressure Position Lying Pulse Oximetry 90 92 92 Oxygen Delivery Method Room Air Sepsis Recent Fever Within 48 Hours No Sepsis New/Unexplained Change in Mental Status N/A Sepsis Action Taken by Nursing No Action Required 11/24/20 22:30 11/24/20 23:30 11/24/20 23:32 Temperature Temperature Source Pulse Rate 98 H 94 H 94 H Pulse Rate from SpO2 Sensor 96 H 94 H 94 H Pulse Rhythm Pulse Strength Respiratory Rate 21 18 14 Respiratory Effort / Characteristics Respiratory Depth Respiratory Pattern Blood Pressure 97/59 L 75/27 L 73/37 L Blood Pressure Mean 71 43 49 Blood Pressure Position Pulse Oximetry 93 93 94 Oxygen Delivery Method Sepsis Recent Fever Within 48 Hours Sepsis New/Unexplained Change in Mental Status Sepsis Action Taken by Nursing 11/24/20 23:36 Temperature Temperature Source Pulse Rate 96 H Pulse Rate from SpO2 Sensor 96 H Pulse Rhythm Pulse Strength Respiratory Rate 18 Respiratory Effort / Characteristics Respiratory Depth Respiratory Pattern Blood Pressure 89/55 L Blood Pressure Mean 66 Blood Pressure Position Pulse Oximetry 95 Oxygen Delivery Method Sepsis Recent Fever Within 48 Hours Sepsis New/Unexplained Change in Mental Status Sepsis Action Taken by Jail Medications Current Medication List: was personally reviewed by me Laboratory Data Attestation: I reviewed the patient's lab results. Result diagrams: 11/24/20 21:50 11/24/20 21:50 Lab Results 11/24/20 11/24/20 11/24/20 Range/Units 21:50 21:50 21:50 WBC 16.96 H (4.8-10.8) K/uL RBC 4.91 (4.2-5.4) M/uL Hgb 14.8 (12.0-16.0) g/dL Hct 42.4 (37-47) % MCV 86.4 (80-100) fL MCH 30.1 (25-34) pg MCHC 34.9 (32-36) g/dL RDW Std Deviation 42.9 (36.4-46.3) fL RDW Coeff of Diamond 13.5 (11.5-14.5) % Plt Count 304 (130-400) K/uL MPV 10.0 (7.4-10.4) fL Immature Gran % (Auto) 0.5 % Neut % (Auto) 75.6 % Lymph % (Auto) 22.2 % [place] % (Auto) 1.4 % Eos % (Auto) 0.1 % Baso % (Auto) 0.2 % Neut # (Auto) 12.84 H (1.4-6.5) K/uL Lymph # (Auto) 3.76 H (1.2-3.4) K/uL [place] # (Auto) 0.24 (0.11-0.59) K/uL Eos # (Auto) 0.01 (0-0.5) K/uL Baso # (Auto) 0.03 (0-0.2) K/uL Immature Gran # (Auto) 0.08 H (0.00-0.02) K/uL PT 10.2 (9.0-12.0) Seconds INR 1.0 (0.9-1.1) APTT 20.8 L (21.0-31.0) Seconds PTT Ratio 0.8 D-Dimer 880 H* (0-500) ug/L FEU Sodium (136-145) mmol/L Potassium (3.5-5.1) mmol/L Chloride (98-107) mmol/L Carbon Dioxide (21-32) mmol/L Anion Gap (3-11) BUN (7-18) mg/dl Creatinine (0.6-1.2) mg/dl Est Cr Clr Drug Dosing ml/min Est GFR ( Amer) Est GFR (Non-Af Amer) BUN/Creatinine Ratio (10-20) Glucose (70-99) mg/dl Calcium (8.5-10.1) mg/dl Total Bilirubin (0.2-1) mg/dl AST (15-37) U/L ALT (12-78) U/L Alkaline Phosphatase (45-117) U/L Troponin I (0-0.045) ng/ml Total Protein (6.4-8.2) gm/dl Albumin (3.4-5.0) gm/dl Globulin (2.5-4.0) gm/dl Albumin/Globulin Ratio (0.9-2) Lipase (73-393) U/L Urine Color Urine Appearance (Clear) Urine pH (4.5-7.5) Ur Specific [place] (1.000-1.030) Urine Protein (Negative) Urine Glucose (UA) (Negative) Urine Ketones (Negative) Urine Blood (Negative) Urine Nitrite (Negative) Urine Bilirubin (Negative) Urine Urobilinogen (Negative) Ur Leukocyte Esterase (Negative) Urine WBC (Auto) (0-5) /hpf Urine RBC (Auto) (0-4) /hpf U Hyaline Cast (Auto) (0-5) /lpf U Epithel Cells (Auto) (0-5) /lpf Urine Bacteria (Auto) (Negative) Urine Opiates Screen (Neg) Ur Methadone, Qual (Neg) Urine Barbiturates (Neg) Ur Phencyclidine (PCP) (Neg) U Amphetamin/Meth Scrn (Neg) MDMA (Ecstasy) Screen (Neg) U Benzodiazepines Scrn (Neg) Ur Cocaine Metabolite (Neg) U Marijuana (THC) Screen (Neg) Ethyl Alcohol mg/dL 274.6 H (0-3) mg/dl COVID-19 Eval Order SARS-CoV-2 (PCR) (Negative) Influenza Type A (PCR) (Neg) Influenza Type B (PCR) (Neg) RSV (RT-PCR) (Neg) 11/24/20 11/24/20 11/24/20 Range/Units 21:50 22:29 22:29 WBC (4.8-10.8) K/uL RBC (4.2-5.4) M/uL Hgb (12.0-16.0) g/dL Hct (37-47) % MCV (80-100) fL MCH (25-34) pg MCHC (32-36) g/dL RDW Std Deviation (36.4-46.3) fL RDW Coeff of Diamond (11.5-14.5) % Plt Count (130-400) K/uL MPV (7.4-10.4) fL Immature Gran % (Auto) % Neut % (Auto) % Lymph % (Auto) % [place] % (Auto) % Eos % (Auto) % Baso % (Auto) % Neut # (Auto) (1.4-6.5) K/uL Lymph # (Auto) (1.2-3.4) K/uL [place] # (Auto) (0.11-0.59) K/uL Eos # (Auto) (0-0.5) K/uL Baso # (Auto) (0-0.2) K/uL Immature Gran # (Auto) (0.00-0.02) K/uL PT (9.0-12.0) Seconds INR (0.9-1.1) APTT (21.0-31.0) Seconds PTT Ratio D-Dimer (0-500) ug/L FEU Sodium 143 (136-145) mmol/L Potassium 3.6 (3.5-5.1) mmol/L Chloride 108 H (98-107) mmol/L Carbon Dioxide 16 L (21-32) mmol/L Anion Gap 19.0 H (3-11) BUN 18 (7-18) mg/dl Creatinine 0.51 L (0.6-1.2) mg/dl Est Cr Clr Drug Dosing 125.9 ml/min Est GFR ( Amer) 124.6 Est GFR (Non-Af Amer) 107.5 BUN/Creatinine Ratio 35.0 H (10-20) Glucose 67 L (70-99) mg/dl Calcium 8.5 (8.5-10.1) mg/dl Total Bilirubin 0.4 (0.2-1) mg/dl AST 25 (15-37) U/L ALT 24 (12-78) U/L Alkaline Phosphatase 57 (45-117) U/L Troponin I < 0.015 (0-0.045) ng/ml Total Protein 7.1 (6.4-8.2) gm/dl Albumin 3.9 (3.4-5.0) gm/dl Globulin 3.2 (2.5-4.0) gm/dl Albumin/Globulin Ratio 1.2 (0.9-2) Lipase 54 L (73-393) U/L Urine Color Urine Appearance (Clear) Urine pH (4.5-7.5) Ur Specific [place] (1.000-1.030) Urine Protein (Negative) Urine Glucose (UA) (Negative) Urine Ketones (Negative) Urine Blood (Negative) Urine Nitrite (Negative) Urine Bilirubin (Negative) Urine Urobilinogen (Negative) Ur Leukocyte Esterase (Negative) Urine WBC (Auto) (0-5) /hpf Urine RBC (Auto) (0-4) /hpf U Hyaline Cast (Auto) (0-5) /lpf U Epithel Cells (Auto) (0-5) /lpf Urine Bacteria (Auto) (Negative) Urine Opiates Screen (Neg) Ur Methadone, Qual (Neg) Urine Barbiturates (Neg) Ur Phencyclidine (PCP) (Neg) U Amphetamin/Meth Scrn (Neg) MDMA (Ecstasy) Screen (Neg) U Benzodiazepines Scrn (Neg) Ur Cocaine Metabolite (Neg) U Marijuana (THC) Screen (Neg) Ethyl Alcohol mg/dL (0-3) mg/dl COVID-19 Eval Order CovFluRsv at [facility] SARS-CoV-2 (PCR) NEGATIVE (Negative) Influenza Type A (PCR) Negative (Neg) Influenza Type B (PCR) Negative (Neg) RSV (RT-PCR) Negative (Neg) 11/24/20 11/24/20 Range/Units 23:10 23:10 WBC (4.8-10.8) K/uL RBC (4.2-5.4) M/uL Hgb (12.0-16.0) g/dL Hct (37-47) % MCV (80-100) fL MCH (25-34) pg MCHC (32-36) g/dL RDW Std Deviation (36.4-46.3) fL RDW Coeff of Diamond (11.5-14.5) % Plt Count (130-400) K/uL MPV (7.4-10.4) fL Immature Gran % (Auto) % Neut % (Auto) % Lymph % (Auto) % [place] % (Auto) % Eos % (Auto) % Baso % (Auto) % Neut # (Auto) (1.4-6.5) K/uL Lymph # (Auto) (1.2-3.4) K/uL [place] # (Auto) (0.11-0.59) K/uL Eos # (Auto) (0-0.5) K/uL Baso # (Auto) (0-0.2) K/uL Immature Gran # (Auto) (0.00-0.02) K/uL PT (9.0-12.0) Seconds INR (0.9-1.1) APTT (21.0-31.0) Seconds PTT Ratio D-Dimer (0-500) ug/L FEU Sodium (136-145) mmol/L Potassium (3.5-5.1) mmol/L Chloride (98-107) mmol/L Carbon Dioxide (21-32) mmol/L Anion Gap (3-11) BUN (7-18) mg/dl Creatinine (0.6-1.2) mg/dl Est Cr Clr Drug Dosing ml/min Est GFR ( Amer) Est GFR (Non-Af Amer) BUN/Creatinine Ratio (10-20) Glucose (70-99) mg/dl Calcium (8.5-10.1) mg/dl Total Bilirubin (0.2-1) mg/dl AST (15-37) U/L ALT (12-78) U/L Alkaline Phosphatase (45-117) U/L Troponin I (0-0.045) ng/ml Total Protein (6.4-8.2) gm/dl Albumin (3.4-5.0) gm/dl Globulin (2.5-4.0) gm/dl Albumin/Globulin Ratio (0.9-2) Lipase (73-393) U/L Urine Color Yellow Urine Appearance Clear (Clear) Urine pH 5.0 (4.5-7.5) Ur Specific [place] 1.019 (1.000-1.030) Urine Protein Trace H (Negative) Urine Glucose (UA) Negative (Negative) Urine Ketones 2+ H (Negative) Urine Blood Negative (Negative) Urine Nitrite Negative (Negative) Urine Bilirubin Negative (Negative) Urine Urobilinogen Negative (Negative) Ur Leukocyte Esterase Negative (Negative) Urine WBC (Auto) 1-5 (0-5) /hpf Urine RBC (Auto) 5-10 H (0-4) /hpf U Hyaline Cast (Auto) 5-10 H (0-5) /lpf U Epithel Cells (Auto) >30 H (0-5) /lpf Urine Bacteria (Auto) Negative (Negative) Urine Opiates Screen Neg (Neg) Ur Methadone, Qual Neg (Neg) Urine Barbiturates Neg (Neg) Ur Phencyclidine (PCP) Neg (Neg) U Amphetamin/Meth Scrn Neg (Neg) MDMA (Ecstasy) Screen Neg (Neg) U Benzodiazepines Scrn Neg (Neg) Ur Cocaine Metabolite Neg (Neg) U Marijuana (THC) Screen Neg (Neg) Ethyl Alcohol mg/dL (0-3) mg/dl COVID-19 Eval Order SARS-CoV-2 (PCR) (Negative) Influenza Type A (PCR) (Neg) Influenza Type B (PCR) (Neg) RSV (RT-PCR) (Neg) Administered Medications Discontinued Medications Sodium Chloride (Nss 1000ml) 1,000 mls @ 999 mls/hr IV .Q1H1M STA Stop: 11/24/20 22:33 Last Infusion: 11/24/20 23:01 Dose: 0 mls/hr Documented by: [id number] Admin: 11/24/20 21:50 Dose: 999 mls/hr Documented by: [id number] Sodium Chloride (Nss 1000ml) 1,000 mls @ 999 mls/hr IV .Q1H1M ONE Stop: 11/24/20 23:40 Last Infusion: 11/25/20 00:26 Dose: 0 mls/hr Documented by: [id number] Admin: 11/24/20 23:13 Dose: 999 mls/hr Documented by: [id number] Lactated Ringer's (Lr) 1,000 mls @ 999 mls/hr IV .Q1H1M ONE Stop: 11/25/20 00:41 Last Admin: 11/24/20 23:45 Dose: 999 mls/hr Documented by: [id number] Ioversol (Optiray 350 500ml) 102 ml IV ONCE ONE Stop: 11/24/20 23:19 Last Admin: 11/24/20 23:19 Dose: 102 ml Documented by: [id number] Ondansetron HCl (Ondansetron Inj 2 Mg/Ml 2 Ml Vial) 4 mg IV NOW STA Stop: 11/24/20 21:34 Last Admin: 11/24/20 21:49 Dose: 4 mg Documented by: [id number] Imaging Data Radiologist's Impression: Patient: LESLIE HANSEN (Female) : 63 Status: ER Date: 11/24/20 23:29 Room #: History: PAIN AND PRESSURE IN CHEST, R/O PE Slices: 690 Priors: Tech: Blu Oleary @ [phone] Exams: CTA CHEST Contrast: IV Amt: 102 ML OPTIRAY 350 Accession Numbers: [id number] Preliminary Findings Only See Final Report For Complete Findings CTA CHEST: Comparison to August 11, 2014. The pulmonary arterial tree is well-opacified with contrast. No pulmonary emboli are identified. The thoracic aorta is nondilated. There is no aneurysm or dissection. The heart is not enlarged. No pericardial effusion is seen. No mediastinal or axillary lymphadenopathy or mass is present. The lungs are well inflated. There is a trace amount of basilar dependent subsegmental atelectasis. No acute appearing airspace infiltrate, pneumothorax, pleural effusion is seen. Mild degenerative changes in the lower thoracic spine. No acute fracture or subluxation is seen. Limited images of the upper abdomen are remarkable for fatty infiltration of the liver. Radiologist: Berto Chen MD Study ready at 23:34 and initial results transmitted at 23:50 Patient: LESLIE HANSEN (Female) : 63 Status: ER Date: 11/24/20 23:30 Room #: History: PAIN AND PRESSURE IN CHEST AND ABD Slices: 700 Priors: Tech: Blu Oleary @ [phone] Exams: CT ABDOMEN & PELVIS With Contrast Contrast: IV Amt: 102 ML OPTIRAY 350 Accession Numbers: [id number] Preliminary Findings Only See Final Report For Complete Findings CT ABDOMEN & PELVIS With Contrast: There is severe fatty infiltration of the liver. The liver is borderline enlarged measuring 18 cm craniocaudad. No focal liver lesion is seen. The gallbladder, pancreas, spleen, adrenal glands, and left kidney are unremarkable. There is a simple cyst in the lower pole the right kidney measuring 4.8 cm. No hydronephrosis or ureterolithiasis is seen. The appendix is normal. Bowel loops are nondilated. No acute inflammatory changes are seen involving the bowel. The uterus, adnexa, urinary bladder appear within normal limits. There is scoliosis of the lumbar spine with Cummins angle measuring 34 and associated degenerative changes. No acute fracture or subluxation. Radiologist: Berto Chen MD Study ready at 23:34 and initial results transmitted at 23:55 Discharge Plan Visit Data Chief Complaint: Chest Pain Stated Complaint: CHEST PAIN ED Provider: Tiburcio Wright Discharge Problem: Chest pain, Alcohol intoxication, Acidosis, metabolic, Abnormal EKG, Acute hypotension Patient Disposition: Being Evaluated by Hospitalist Condition: Good Forms Stand Alone Forms: [employer] Prescriptions Prescriptions: No Action No Known Home Medications RF: 0 Referrals Referrals: Harsh Ram DO [Primary Care Provider] - Discharge Problem: Chest pain Qualifiers: Chest pain type: unspecified Qualified Code(s): R07.9 - Chest pain, unspecified Alcohol intoxication Qualifiers: Complication of substance-induced condition: uncomplicated Qualified Code(s): F10.920 - Alcohol use, unspecified with intoxication, uncomplicated
[2020-11-24 22:06] LABS: Basophils # (auto) 0.03 K/uL (0-0.2); Basophils % (auto) 0.2 %; Eosinophils # (auto) 0.01 K/uL (0-0.5); Eosinophils % (auto) 0.1 %; Hematocrit (blood only) 42.4 % (37-47); Hemoglobin 14.8 g/dL (12.0-16.0); Immature Granulocytes # (auto) 0.08 K/uL (0.00-0.02); Immature Granulocytes % (auto) 0.5 %; Lymphocytes # (auto) 3.76 K/uL (1.2-3.4); Lymphocytes % (auto) 22.2 %; Mean Corpuscular Hemoglobin 30.1 pg (25-34); Mean Corpuscular Hgb Conc 34.9 g/dL (32-36); Mean Corpuscular Volume 86.4 fL (80-100); Monocytes # (auto) 0.24 K/uL (0.11-0.59); Monocytes % (auto) 1.4 %; Neutrophils # (auto) 12.84 K/uL (1.4-6.5); Neutrophils % (auto) 75.6 %; Platelet Count 304 K/uL (130-400); RDW Coefficient of Variation 13.5 % (11.5-14.5); RDW Standard Deviation 42.9 fL (36.4-46.3); Red Blood Count 4.91 M/uL (4.2-5.4); White Blood Count 16.96 K/uL (4.8-10.8)
[2020-11-24 22:25] LABS: Alanine Aminotransferase 24 U/L (12-78); Albumin Level 3.9 gm/dl (3.4-5.0); Aspartate Aminotransferase 25 U/L (15-37); Blood Urea Nitrogen 18 mg/dl (7-18); Calcium 8.5 mg/dl (8.5-10.1); Carbon Dioxide 16 mmol/L (21-32); Chloride 108 mmol/L (98-107); Creatinine Clr Calc Pharmacy 125.9 ml/min; Est GFR (African American) 124.6; Est GFR (Non-African American) 107.5; Glucose 67 mg/dl (70-99); Lipase 54 U/L (73-393); Potassium 3.6 mmol/L (3.5-5.1); Sodium 143 mmol/L (136-145)
[2020-11-24 22:29] LABS: Partial Thromboplastin Ratio 0.8; Partial Thromboplastin Time 20.8 Seconds (21.0-31.0); Prothrombin Time 10.2 Seconds (9.0-12.0)
[2020-11-24 22:30] LABS: Albumin Globulin Ratio 1.2 (0.9-2); Alkaline Phosphatase 57 U/L (45-117); Bilirubin,Total 0.4 mg/dl (0.2-1); Globulin 3.2 gm/dl (2.5-4.0); Total Protein 7.1 gm/dl (6.4-8.2); Troponin I < 0.015 ng/ml (0-0.045)
[2020-11-24 22:35] LABS: D Dimer 880 ug/L FEU (0-500)
[2020-11-24] MEDS ORDERED: SODIUM CHLORIDE 0.9% 1000ML 1,000 ML IV ONE (22:40)
[2020-11-24 23:15] LABS: Influenza A virus by PCR Negative (Neg); Influenza B virus by PCR Negative (Neg); RSV by PCR Negative (Neg); SARS CoV2 RNA(COVID-19) InHosp NEGATIVE (Negative)
[2020-11-24] MEDS ORDERED: OPTIRAY 350 500ml IV ONE (23:18)
[2020-11-24 23:21] LABS: Appearance Urine Clear (Clear); Bacteria Urine Automated Negative (Negative); Bilirubin Urine Negative (Negative); Blood Urine Negative (Negative); Color Urine Yellow; Epithelial Cell Urine Auto >30 /lpf (0-5); Glucose Urine UA Negative (Negative); Ketones Urine 2+ (Negative); Leukocyte Esterase Urine Negative (Negative); Nitrite Urine Negative (Negative); Protein Urine Trace (Negative); Specific Gravity Urine 1.019 (1.000-1.030); Urobilinogen Urine Negative (Negative)
[2020-11-24 23:37] LABS: Amphetamines+Metham, Urine Neg (Neg); Barbiturates, Urine Neg (Neg); Benzodiazepine, Urine Neg (Neg); Cocaine, Urine Neg (Neg); MDMA (Ecstacy), Urine Neg (Neg); Methadone, Urine Neg (Neg); Opiate, Urine Neg (Neg); Phencyclidine, Urine Neg (Neg)
[2020-11-24] MEDS ORDERED: LACTATED RINGER'S 1,000 ML IV ONE (23:41)
[2020-11-25] MEDS ORDERED: THIAMINE HCL 100 MG in SYRINGE 9 ML IV STA (00:27)
[2020-11-25 01:04] LABS: Base Excess VBG -11.6 mEq/L; pH VBG 7.26 (7.36-7.41)
--- NOTE | 2020-11-25 01:06 | History & Physical Report ---
Date of Service November 25, 2020 Assessment & Plan (1) Acute hypotension: Hypotension secondary to hypovolemia Nitroglycerin administration by EMS as contributory Chest pain Secondary to home stressors Suboptimal anxiety/mood disorder Rule out ACS given patient risk factors alcohol abuse PCU IVF, follow lactic acid Follow troponin Anxiolytic as needed Aspirin for CAD prevention until ACS ruled out Cardiology consult RE chest pain N.p.o. until patient seen by Cardiology. Psych consult as per patient request Re: suboptimal anxiety/depression DT precautions, KINGS S DVT prophylaxis per Lovenox subcu Full code Text document was generated using [employer] voice recognition software. It may contain grammatical or spelling errors. Kindly contact undersigned for clarification of any documentation item in question. History of Present Illness Chief Complaint: Chest pain Primary Care Provider: Colton Bowers DO History obtained from patient and records. Medical history significant for anxiety/mood disorder, alcohol abuse, GERD, fatty liver as per records. Last confinement 2018 for chest pain attributed to anxiety, musculoskeletal problem. Yesterday morning, patient woke up with chest heaviness going to the back without shortness of breath without cough symptoms. Palpitations noted. A little more intense than episode from 2 years ago. A lot of stress at home taking care of with dementia. Anxiety, depression not the best, patient denies suicidality. Poor appetite. Chest pain different from heartburn as per patient. Aspirin and nitroglycerin administered by EMS. Patient not sure if medication worked. Chest pain not relieved by GI cocktail given at the ER. Medical History as above No prior history of alcohol withdrawal seizures as per patient. 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 Allergies Allergy/AdvReac Type Severity Reaction Status Date / Time amoxicillin Allergy Intermediate RASH/HIVES Verified 11/24/20 21:46 azithromycin AdvReac Gastrointestinal Verified 11/24/20 21:46 Upset Home Medications Medication Instructions Recorded Confirmed Type No Known Home Medications 11/24/20 11/24/20 History Past Med/Surg History Medical History Alcohol use Alcoholic gastritis Alcoholism Anxiety and depression Chest pain Family History Brother Coronary heart disease Fatal [place] age 55 Diabetes Father Coronary heart disease Diabetes Hypertension Mother Coronary heart disease Social History Smoking Status: Never smoker Second Hand Exposure: No; Do You Dip or Chew Tobacco: No; Hx Alcohol Use: Yes Alcohol type: hard liquor Hx Substance Use: No Preferred Language: Macanese Communication Ability: Effective Visual Impairment: No Limitations 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: Normal 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 Neckties Required: No Beliefs That Will Affect Care: None Current Living Situation: Family Other Information That Helps Us Care for You: No Feels Safe at Home: Yes Safety Concerns: Feels Safe At This Time Assistive Devices: Glasses Review of Systems Review of Systems: As per HPI, all 10 systems reviewed, all other ROS negative Physical Exam Physical Exam: GENERAL: Slightly uncomfortable, anxious, no respiratory distress SKIN: Normal color, warm HEENT: [place] palpebral conjunctivae, no ptosis, dry buccal mucosa NECK : Supple, no tenderness CHEST : CTA, no tenderness HEART : Tachycardic, no obvious murmurs ABDOMEN: Some distention, nontender EXTREMITIES : No LE swelling/tenderness, no other conspicuous deformities noted NEUROLOGIC : Coherent, no facial asymmetry, tremulous, no other gross focality Results & Data Results & Data ([facility]) Vital Signs (Past 12 Hours) Vital Signs Temp Pulse Resp BP Pulse Ox 11/24/20 23:36 96 H 18 89/55 L 95 11/24/20 23:32 94 H 14 73/37 L 94 11/24/20 23:30 94 H 18 75/27 L 93 11/24/20 22:30 98 H 21 97/59 L 93 11/24/20 22:14 94 H 18 97/45 L 92 11/24/20 21:38 37.0 C 116 H 24 115/59 L 92 11/24/20 21:33 112 H 25 H 115/59 L 90 Laboratory Results Laboratory Results WBC 16.96 K/uL (4.8-10.8) H 11/24/20 21:50 RBC 4.91 M/uL (4.2-5.4) 11/24/20 21:50 Hgb 14.8 g/dL (12.0-16.0) 11/24/20 21:50 Hct 42.4 % (37-47) 11/24/20 21:50 MCV 86.4 fL (80-100) 11/24/20 21:50 MCH 30.1 pg (25-34) 11/24/20 21:50 MCHC 34.9 g/dL (32-36) 11/24/20 21:50 RDW Std Deviation 42.9 fL (36.4-46.3) 11/24/20 21:50 RDW Coeff of Diamond 13.5 % (11.5-14.5) 11/24/20 21:50 Plt Count 304 K/uL (130-400) 11/24/20 21:50 MPV 10.0 fL (7.4-10.4) 11/24/20 21:50 Immature Gran % (Auto) 0.5 % 11/24/20 21:50 Neut % (Auto) 75.6 % 11/24/20 21:50 Lymph % (Auto) 22.2 % 11/24/20 21:50 Holt % (Auto) 1.4 % 11/24/20 21:50 Eos % (Auto) 0.1 % 11/24/20 21:50 Baso % (Auto) 0.2 % 11/24/20 21:50 Neut # (Auto) 12.84 K/uL (1.4-6.5) H 11/24/20 21:50 Lymph # (Auto) 3.76 K/uL (1.2-3.4) H 11/24/20 21:50 Holt # (Auto) 0.24 K/uL (0.11-0.59) 11/24/20 21:50 Eos # (Auto) 0.01 K/uL (0-0.5) 11/24/20 21:50 Baso # (Auto) 0.03 K/uL (0-0.2) 11/24/20 21:50 Immature Gran # (Auto) 0.08 K/uL (0.00-0.02) H 11/24/20 21:50 PT 10.2 Seconds (9.0-12.0) 11/24/20 21:50 INR 1.0 (0.9-1.1) 11/24/20 21:50 APTT 20.8 Seconds (21.0-31.0) L 11/24/20 21:50 PTT Ratio 0.8 11/24/20 21:50 D-Dimer 880 ug/L FEU (0-500) H* 11/24/20 21:50 Sodium 143 mmol/L (136-145) 11/24/20 21:50 Potassium 3.6 mmol/L (3.5-5.1) 11/24/20 21:50 Chloride 108 mmol/L (98-107) H 11/24/20 21:50 Carbon Dioxide 16 mmol/L (21-32) L 11/24/20 21:50 Anion Gap 19.0 (3-11) H 11/24/20 21:50 BUN 18 mg/dl (7-18) 11/24/20 21:50 Creatinine 0.51 mg/dl (0.6-1.2) L 11/24/20 21:50 Est Cr Clr Drug Dosing 125.9 ml/min 11/24/20 21:50 Est GFR ( Amer) 124.6 11/24/20 21:50 Est GFR (Non-Af Amer) 107.5 11/24/20 21:50 BUN/Creatinine Ratio 35.0 (10-20) H 11/24/20 21:50 Glucose 67 mg/dl (70-99) L 11/24/20 21:50 Calcium 8.5 mg/dl (8.5-10.1) 11/24/20 21:50 Total Bilirubin 0.4 mg/dl (0.2-1) 11/24/20 21:50 AST 25 U/L (15-37) 11/24/20 21:50 ALT 24 U/L (12-78) 11/24/20 21:50 Alkaline Phosphatase 57 U/L (45-117) 11/24/20 21:50 Troponin I < 0.015 ng/ml (0-0.045) 11/24/20 21:50 Total Protein 7.1 gm/dl (6.4-8.2) 11/24/20 21:50 Albumin 3.9 gm/dl (3.4-5.0) 11/24/20 21:50 Globulin 3.2 gm/dl (2.5-4.0) 11/24/20 21:50 Albumin/Globulin Ratio 1.2 (0.9-2) 11/24/20 21:50 Lipase 54 U/L (73-393) L 11/24/20 21:50 Urine Color Yellow 04/27/21 23:10 Urine Appearance Clear (Clear) 11/24/20 23:10 Urine pH 5.0 (4.5-7.5) 11/24/20 23:10 Ur Specific [place] 1.019 (1.000-1.030) 11/24/20 23:10 Urine Protein Trace (Negative) H 11/24/20 23:10 Urine Glucose (UA) Negative (Negative) 11/24/20 23:10 Urine Ketones 2+ (Negative) H 11/24/20 23:10 Urine Blood Negative (Negative) 11/24/20 23:10 Urine Nitrite Negative (Negative) 11/24/20 23:10 Urine Bilirubin Negative (Negative) 11/24/20 23:10 Urine Urobilinogen Negative (Negative) 11/24/20 23:10 Ur Leukocyte Esterase Negative (Negative) 11/24/20 23:10 Urine WBC (Auto) 1-5 /hpf (0-5) 11/24/20 23:10 Urine RBC (Auto) 5-10 /hpf (0-4) H 11/24/20 23:10 U Hyaline Cast (Auto) 5-10 /lpf (0-5) H 11/24/20 23:10 U Epithel Cells (Auto) >30 /lpf (0-5) H 11/24/20 23:10 Urine Bacteria (Auto) Negative (Negative) 11/24/20 23:10 Urine Opiates Screen Neg (Neg) 11/24/20 23:10 Ur Methadone, Qual Neg (Neg) 11/24/20 23:10 Urine Barbiturates Neg (Neg) 11/24/20 23:10 Ur Phencyclidine (PCP) Neg (Neg) 11/24/20 23:10 U Amphetamin/Meth Scrn Neg (Neg) 11/24/20 23:10 MDMA (Ecstasy) Screen Neg (Neg) 11/24/20 23:10 U Benzodiazepines Scrn Neg (Neg) 11/24/20 23:10 Ur Cocaine Metabolite Neg (Neg) 11/24/20 23:10 U Marijuana (THC) Screen Neg (Neg) 11/24/20 23:10 Ethyl Alcohol mg/dL 274.6 mg/dl (0-3) H 11/24/20 21:50 COVID-19 Eval Order [facility]Rsv at [facility] 11/24/20 22:29 SARS-CoV-2 (PCR) NEGATIVE (Negative) 11/24/20 22:29 Influenza Type A (PCR) Negative (Neg) 11/24/20 22:29 Influenza Type B (PCR) Negative (Neg) 11/24/20 22:29 RSV (RT-PCR) Negative (Neg) 11/24/20 22:[address] chest initial read: The pulmonary arterial tree is well-opacified with contrast. No pulmonary emboli are identified. The thoracic aorta is nondilated. There is no aneurysm or dissection. The heart is not enlarged. No pericardial effusion is seen. No mediastinal or axillary lymphadenopathy or mass is present. The lungs are well inflated. There is a trace amount of basilar dependent subsegmental atelectasis. No acute appearing airspace infiltrate, pneumothorax, pleural effusion is seen. Mild degenerative changes in the lower thoracic spine. No acute fracture or subluxation is seen. Limited images of the upper abdomen are remarkable for fatty infiltration of the liver. CT abdomen pelvis initial read: There is severe fatty infiltration of the liver. The liver is borderline enlarged measuring 18 cm craniocaudad. No focal liver lesion is seen. The gallbladder, pancreas, spleen, adrenal glands, and left kidney are unremarkable. There is a simple cyst in the lower pole the right kidney measuring 4.8 cm. No hydronephrosis or ureterolithiasis is seen. The appendix is normal. Bowel loops are nondilated. No acute inflammatory changes are seen involving the bowel. The uterus, adnexa, urinary bladder appear within normal limits. There is scoliosis of the lumbar spine with Cummins angle measuring 34 and associated degenerative changes. No acute fracture or subluxation. EKG as per my interpretation: Rate 120, sinus tachycardia, normal axis, inferior infarct, T wave abnormalities inferior leads
[2020-11-25] MEDS ORDERED: LACTATED RINGER'S 1,000 ML IV ONE ×3 (01:09→06:36)
[2020-11-25] MEDS ORDERED: GI COCKTAIL ED USE PO ONE (01:16)
[2020-11-25] MEDS ORDERED: GI COCKTAIL ED USE PO STA (01:22)
[2020-11-25 01:24] LABS: Magnesium 1.4 mg/dl (1.8-2.4); Thyroid Stimulating Hormone 0.262 uIu/ml (0.300-4.500); Troponin I < 0.015 ng/ml (0-0.045)
[2020-11-25 01:57] LABS: Lyme Ab IgG w/WB Rflx Negative (Negative); Lyme Ab IgM w/WB Rflx Negative (Negative)
[2020-11-25 02:06] LABS: T4 Free Thyroxine 1.13 ng/dl (0.8-1.6)
[2020-11-25] MEDS ORDERED: oxyCODONE HCL IR 5 MG TAB (IMMEDIATE RELEASE) PO PRN (03:16)
[2020-11-25] MEDS ORDERED: LORazepam 3 MG/6 ML VIAL IV PRN (03:16)
[2020-11-25] MEDS ORDERED: LORazepam 2 MG/4 ML VIAL IV PRN (03:16)
[2020-11-25] MEDS ORDERED: GABAPENTIN 1200MG ALCOHOL WITHDRAWAL LOAD PO STA (03:16)
[2020-11-25] MEDS ORDERED: ACETAMINOPHEN 325 MG TAB PO PRN (03:16)
[2020-11-25] MEDS ORDERED: GABAPENTIN 600 MG TAB PO ONE (03:16)
[2020-11-25] MEDS ORDERED: PROMETHAZINE HCL 12.5 MG in SODIUM CHLORIDE 0.9% 50 ML IV PRN (03:16)
[2020-11-25] MEDS ORDERED: MoRPHine SULFATE 2 MG/ML CARP IV PRN (03:16)
[2020-11-25] MEDS ORDERED: ATIVAN IV ALCOHOL WITHDRAWL IV PRN (03:16)
[2020-11-25] MEDS: MAGNESIUM SULFATE / D5W 1 GM/100 ML BAG IV SCH ×3 (03:49→07:51)
[2020-11-25] MEDS ORDERED: NITROGLYCERIN SL 0.4 MG/TAB TAB SL PRN (03:49)
[2020-11-25] MEDS ORDERED: oxyCODONE HCL IR 5 MG TAB (IMMEDIATE RELEASE) PO STA (04:08)
[2020-11-25] MEDS ORDERED: LACTATED RINGER'S 1,000 ML IV SCH ×2 (05:30→08:30)
[2020-11-25 06:15] LABS: Basophils # (auto) 0.01 K/uL (0-0.2); Basophils % (auto) 0.1 %; Hematocrit (blood only) 33.2 % (37-47); Hemoglobin 11.6 g/dL (12.0-16.0); Immature Granulocytes # (auto) 0.02 K/uL (0.00-0.02); Immature Granulocytes % (auto) 0.2 %; Lymphocytes # (auto) 2.12 K/uL (1.2-3.4); Lymphocytes % (auto) 25.4 %; Mean Corpuscular Hemoglobin 30.1 pg (25-34); Mean Corpuscular Hgb Conc 34.9 g/dL (32-36); Mean Platelet Volume 9.7 fL (7.4-10.4); Monocytes # (auto) 0.39 K/uL (0.11-0.59); Monocytes % (auto) 4.7 %; Neutrophils # (auto) 5.81 K/uL (1.4-6.5); Neutrophils % (auto) 69.6 %; Platelet Count 197 K/uL (130-400); RDW Coefficient of Variation 13.6 % (11.5-14.5); RDW Standard Deviation 42.5 fL (36.4-46.3); Red Blood Count 3.86 M/uL (4.2-5.4); White Blood Count 8.35 K/uL (4.8-10.8)
[2020-11-25 06:33] LABS: Partial Thromboplastin Ratio 0.9; Partial Thromboplastin Time 23.1 Seconds (21.0-31.0)
[2020-11-25 06:50] LABS: BUN Creatinine Ratio 26.3 (10-20); Calcium 7.5 mg/dl (8.5-10.1); Creatinine Clr Calc Pharmacy 143.8 ml/min; Est GFR (African American) 131.8; Est GFR (Non-African American) 113.7; Potassium 4.2 mmol/L (3.5-5.1)
--- NOTE | 2020-11-25 07:03 | CT Scan Report ---
CT angio chest PE protocol CT DOSE: 688.86 mGy.cm HISTORY: 55 years-old Female with PE. Acute shortness of breath with chest and abdominal pain TECHNIQUE: Multiple CTA images of the chest were obtained after the intravenous administration of 102 ml Optiray. Coronal and sagittal MIPS were obtained from the axial data set and were submitted for review. All measurements were obtained according to NASCET criteria. A dose lowering technique was u tilized adhering to the principles of ALARA. COMPARISON: CT abdomen and pelvis of same day, CT chest 04/09/2019 FINDINGS: CTA: Heart is normal in size. No pericardial effusion. No thoracic aortic aneurysm or dissection. Patency of the imaged great vessels. The pulmonary arterial tree is opacified to the level of the proximal maharaj bsegmental branches and demonstrates no filling defects to suggest thromboembolic disease. CT CHEST: Unremarkable thyroid. There is no adenopathy. No pneumothorax, pleural effusion or overt pulmonary ed kendall. Mild dependent bibasilar groundglass densities suggest atelectasis. No airspace consolidation ty pical for pneumonia. No suspicious pulmonary nodules. Central airways are patent. No pneumoperitoneum. Hepatic steatosis. Partially imaged probable cyst of the right kidney, 2.6 cm. U nremarkable breast parenchyma and soft tissues. No acute fracture or suspicious bone lesion. Lower th oracic levoscoliosis. IMPRESSION: 1. No pulmonary emboli. 2. No pleural effusion, adenopathy or airspace consolidation. ACT 112: Negative or not required by law. The above report was generated using voice recognition software. It may contain grammatical, syntax o r spelling errors. Electronically signed by: David Lofton M.D. 11/25/2020 7:02 AM
--- NOTE | 2020-11-25 07:12 | CT Scan Report ---
CT abd pelvis IV con only CLINICAL HISTORY: Abdominal pain COMPARISON STUDY: None. TECHNIQUE: The patient was scanned in a dynamic helical fashion during intravenous administration of 102 cc of Optiray 320 A dose lowering technique was utilized adhering to the principles of ALARA. CT DOSE: FINDINGS: Lower chest: The heart is normal in size and configuration, without pericardial effusion. The lung ba ses and pleural spaces are clear. Liver: There is hepatic steatosis. No focal masses are visualized. The hepatic and portal veins appea r patent. Gallbladder: Unremarkable. Spleen: Normal in size and attenuation. Pancreas: Unremarkable. Adrenal glands: Unremarkable. Kidneys: There are bilateral renal cysts, the largest of which is located on the right measuring 21 m m. Bowel: There are no transition zones indicate bowel obstruction. There is no evidence of acute divert iculitis. The appendix appears normal. Peritoneum: There is no intraperitoneal free air or abdominal ascites. There is a tiny fat-containing umbilical hernia Vasculature: The abdominal aorta is normal in course and caliber. Adenopathy: None. Pelvic viscera: The bladder, and pelvic viscera are unremarkable. Skeletal structures: No destructive osseous lesions are seen. There is a scoliosis. IMPRESSION: 1. Hepatic steatosis 2. No evidence of bowel obstruction. No evidence of free air 3. Normal appendix. No evidence of acute diverticulitis. 4. Scoliosis ACT 112: Negative or not required by law. Electronically signed by: Jorge Petty M.D. 11/25/2020 7:11 AM
[2020-11-25 07:14] LABS: Troponin I 0.121 ng/ml (0-0.045)
[2020-11-25] MEDS: GABAPENTIN 600 MG TAB PO SCH ×3 (07:44→21:24)
[2020-11-25] MEDS: FOLIC ACID 1 MG TAB PO SCH (07:44)
[2020-11-25] MEDS: ASPIRIN 81 MG ECTAB PO SCH (07:44)
[2020-11-25] MEDS: MULTIVITAMIN TAB PO SCH (07:44)
[2020-11-25] MEDS: ENOXAPARIN INJ 40 MG/0.4 ML SYR SQ SCH (07:45)
[2020-11-25] MEDS ORDERED: DOBUTamine HCL 12.5 MG/ML 20 ML VIAL IV ONE (11:10)
[2020-11-25] MEDS ORDERED: METOPROLOL TARTRATE 1 MG/ML VIAL IV ONE (11:10)
--- NOTE | 2020-11-25 11:13 | Psychiatric Consultation ---
Date of Consultation November 25, 2020 Impression / Recommendations Impression Dr. Jo Barbosa was directly involved in review and discussion of the patient's case and participated in medical decision making regarding treatment recommendations. RECOMMENDATIONS: 11/25 - Psychiatric consultation ordered by our hospitalist service at patient's request to discuss concerns related to anxiety and depression. Although patient has a history of these diagnoses, current symptoms seem to be more in the setting of reaction to the acute stress of dealing with her 's health concerns. - Cardiac work-up ongoing, consultation placed for cardiology. Given that patient's acute anxiety seems to be related to recent situational stressors, will focus efforts on coordinating outpatient supports and hold off on initiating new medications during this acute hospitalization. Difficulty coping may also be in the setting of relapse into alcohol use, and maintaining sobriety should be the first step of treatment. - Pt is agreeable with continuing to see her outpatient therapist, as well as re-referral for psychiatry. Pt is also open to exploring intensive outpatient treatment for her alcohol use. Our team will assist with these referrals and ideally securing outpatient appointments for additional treatment resources. Pt also expressed interest in discussing medication options to target alcohol cravings with these providers. - Pt denies SI and acute psychiatric symptoms. No indication for inpatient psychiatric treatment. Appreciate the opportunity to participate in the care of this patient. Please contact our service with any additional questions or updates. (1) Anxiety and depression: (2) Alcohol abuse, unspecified: (3) Chest pain: Chest pain type: unspecified Qualified Code(s): R07.9 - Chest pain, unspecified Risk Factors Assessment Do You Have Access To A Gun?: No Psych History Identifying Data 55-year-old female admitted medically on 11/25/20 after presenting to the ED with reports of chest pain. Psychiatric consultation was ordered by our hospitalist service as requested by patient due to concern for depression and anxiety. Chief Complaint "I have been very stress out with the decision to put my in a home." History of Present Illness Mana Herr is a 55-year-old female admitted medically on 11/25/20 after presenting to the ED with reports of chest pain. Cardiology consultation placed and patient was admitted for further work-up. She reportedly requested psychiatric consultation due to increased stress recently. Pt has a history of alcohol abuse and did admit to relapse 2 days prior to admission. Pt was cooperative with encounter and processed the stress of caring for her , who has progressive dementia related to Alzheimer's. Pt states her was placed at [facility] [place] ~1 week ago; however, suffered a fall within the past few days which has led to patient feeling "overwhelmed." Prior to these decisions, patient denied significant symptoms of depression or anxiety. Pt does have a history of treatment with an SSRI, but states this was discontinued ~2 years ago because it was felt to be ineffective and contributed to weight gain (admittedly not titrated past starting dose). Pt denies acute SI or other safety concerns. She is interested in outpatient psychiatric treatment beyond current twice monthly therapy sessions. She expressed interest in IOP options for alcohol abuse and mentioned desire for future conversations about medications for alcohol dependence. Pt denied additional concerns today. Past Psychiatric History Outpatient Services: Therapist - Nat Snowden twice monthly History of treatment with Dr. Abebe [facility] Psychiatry Previous Psych Admissions: None Do You Have Access To A Gun?: No History of Previous Suicide Attempt: No Past Medication Trials: Pt had been on fluoxetine for several years, discontinued ~1-2 years ago. Pt states it caused weight gain and was ineffective, though admittedly never titrated beyond the starting dose. Allergies Allergy/AdvReac Type Severity Reaction Status Date / Time amoxicillin Allergy Intermediate RASH/HIVES Verified 11/24/20 21:46 azithromycin AdvReac Gastrointestinal Verified 11/24/20 21:46 Upset Home Medications Medication Instructions Recorded Confirmed Type No Known Home Medications 11/24/20 11/24/20 History Family History Pt reports her brother is an alcoholic, has struggled with suicidal thinking and depression. Substance Abuse History Pt admits to history of alcohol abuse, had been sober for 2 years following rehab stay in [place]. Pt did relapse recently, started drinking vodka on 11/23/20. 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 Marital Status: ( is ~79y/o, recently placed at [facility] [place] d/t Alzheimer's) Beliefs That Will Affect Care: None History of Legal Problems: None Psychological Trauma History Comment: None Patient History Medical History Alcohol use Alcoholic gastritis Alcoholism Anxiety and depression Chest pain Family History Brother Coronary heart disease Fatal [place] age 55 Diabetes Father Coronary heart disease Diabetes Hypertension Mother Coronary heart disease Social History Smoking Status: Never smoker Second Hand Exposure: No; Do You Dip or Chew Tobacco: No; Hx Alcohol Use: Yes Alcohol type: hard liquor Hx Substance Use: No Preferred Language: Telugu Communication Ability: Effective Visual Impairment: No Limitations 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: Normal 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 Pt is Eye Contact: good eye contact Motor Behavior: no abnormal motor movements (observed while laying in bed) Speech: normal rate/rhythm/volume of speech Affect: + blunted affect Mood: + depressed mood and + anxious mood describes mood as "overwhelmed" Thought Process: goal directed thought process and clear/coherent thought process Thought Content: reality based without delusions; no hopelessness Suicidal Thoughts: denies suicidal thoughts, denies suicidal plan and denies suicidal intent Homicidal Thoughts: denies homicidal thoughts Hallucinations: no auditory hallucinations and no visual hallucinations Cognition: attention grossly intact and language grossly intact Estimated Intelligence: consistent with education level Insight: + fair insight Judgement: + fair judgement Vital Signs (Past 24 Hours): Last Vital Signs Temp 37.0 C 11/25/20 07:00 Pulse 85 11/25/20 07:00 Resp 18 11/25/20 07:00 BP 111/67 11/25/20 07:00 Pulse Ox 95 11/25/20 07:00 Review of Systems Constitutional: denied Cardiovascular: denied Respiratory: denied Gastrointestinal: denied Neurological: denied Psychiatric: denies symptoms other than stated above Total of at least 10 systems reviewed, pertinent positives as above and in HPI. Results & Data (PSY) Medications Administered Aspirin (Aspirin 81 Mg Ectab) 81 mg PO QAM KANIKA Stop: 12/25/20 08:59 Last Admin: 11/25/20 07:44 Dose: 81 mg Documented by: [id number] Enoxaparin Sodium (Enoxaparin Inj 40 Mg/0.4 Ml Syr) [facility] Stop: 12/25/20 08:59 Last Admin: 11/25/20 07:45 Dose: 40 mg Documented by: [id number] Folic Acid (Folic Acid 1 Mg Tab) 1 mg PO QAM [facility] Stop: 12/25/20 08:59 Last Admin: 11/25/20 07:44 Dose: 1 mg Documented by: [id number] Gabapentin (Gabapentin 600 Mg Tab) 600 mg PO Q6H [facility] Stop: 11/25/20 14:01 Last Admin: 11/25/20 07:44 Dose: 600 mg Documented by: [id number] Promethazine HCl 12.5 mg/ (Sodium Chloride) 50.5 mls @ 202 mls/hr IV Q6H PRN PRN Reason: Nausea And Vomiting Stop: 12/25/20 03:15 Last Infusion: 11/25/20 08:35 Dose: 0 mls/hr Documented by: [id number] Admin: 11/25/20 07:41 Dose: 202 mls/hr Documented by: [id number] Lorazepam (Ativan) 2 mg in 4 mls @ 4 mls/min IV UD PRN; Protocol PRN Reason: EtOH Withdrawl AWSS Score 8,9 Stop: 12/25/20 03:15 Last Admin: 11/25/20 08:49 Dose: 4 mls/min Documented by: [id number] Lactated Ringer's (Lr) 1,000 mls @ 200 mls/hr IV .Q5H [facility] Stop: 12/25/20 08:29 Last Admin: 11/25/20 08:34 Dose: 200 mls/hr Documented by: [id number] Multivitamins (Multivitamin Tab) 1 tab [facility] Stop: 12/25/20 08:59 Last Admin: 11/25/20 07:44 Dose: 1 tab Documented by: [id number] Coding Level of Care Code 77425 U Intl Hosp Care Lvl 2 Diagnoses Anxiety and depression F41.9; F32.9 Alcohol abuse, unspecified F10.10 Chest pain R07.9 Chest pain type: unspecified
--- NOTE | 2020-11-25 13:31 | Cardiology Consultation ---
Date of Consultation November 25, 2020 Assessment & Plan (1) Chest pain: (2) Abnormal EKG: (3) Alcoholism: (4) Anxiety and depression: Dobutamine stress echocardiogram was negative for ischemia. No cardiac source for chest discomfort found. No further cardiac testing intervention necessary at this time. No cardiac follow-up necessary upon discharge either. History of Present Illness Reason for Consultation: Chest pain Requesting Physician: Dr. Rolle Attending Physician: Donna Everett MD History of Present Illness It was my pleasure to see Mrs. Herr in cardiac consultation today 11/25/2020. She is a 55-year-old woman who reported to [facility] with complaints of chest heaviness and shortness of breath upon awakening. Currently she is very somnolent but arousable to verbal stimuli and answers simple short questions. Chart review revealed the patient has been very anxious and upset lately after having to admit her to a long-term care facility due to worsening dementia. She does carry a history of alcohol use. Allergies Allergy/AdvReac Type Severity Reaction Status Date / Time amoxicillin Allergy Intermediate RASH/HIVES Verified 11/24/20 21:46 azithromycin AdvReac Gastrointestinal Verified 11/24/20 21:46 Upset Home Medications Medication Instructions Recorded Confirmed Type No Known Home Medications 11/24/20 11/24/20 History Patient History Medical History Alcohol use Alcoholic gastritis Alcoholism Anxiety and depression Chest pain Family History Brother Coronary heart disease Fatal [place] age 55 Diabetes Father Coronary heart disease Diabetes Hypertension Mother Coronary heart disease Social History Smoking Status: Never smoker Second Hand Exposure: No; Hx Alcohol Use: Yes Alcohol type: hard liquor Hx Substance Use: No Preferred Language: Belarusian Communication Ability: Effective Visual Impairment: No Limitations 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: Normal Wood Fuel Pelletizer Required: No Beliefs That Will Affect Care: None marital status: Current Living Situation: Family Feels Safe at Home: Yes Assistive Devices: Glasses Review of Systems Review of Systems: All systems reviewed & are unremarkable except as noted in HPI & below Physical Exam Physical Exam: General: Very somnolent but responsive to verbal stimuli and questioning., alert and oriented x 3. No acute distress. HEENT: Normocephalic, atraumatic. Pupils equal, round and reactive to light and accommodation. Extraocular muscles are intact. Anicteric sclera. Moist mucous membranes. Neck: No JVD. No bruit. Cardiovascular: Regular. Positive S-4. Normal S-1 and S-2. No S-3. No murmurs or rubs. Pulmonary: Clear to auscultation B/L. No rales, rhonchi or wheezing Abdomen: Bowel sounds x 4, soft. No rebound, guarding or tenderness. No organomegaly. Extremities: No clubbing, cyanosis or edema. +2 pedal pulses bilaterally. Skin: Warm and dry. Results & Data ([facility]) Vital Signs (Past 12 Hours) Vital Signs Temp Pulse Pulse Resp BP BP Pulse Ox 11/25/20 11:45 37.0 C 76 20 104/71 97 11/25/20 07:00 37.0 C 85 18 111/67 95 11/25/20 04:33 86 11/25/20 04:03 36.9 C 87 18 106/58 L 94 11/25/20 03:16 11/25/20 02:32 91 H 18 93/47 L 95 11/25/20 02:00 94 H 16 96/68 L Pulse Ox 11/25/20 11:45 11/25/20 07:00 11/25/20 04:33 11/25/20 04:03 11/25/20 03:16 94 11/25/20 02:32 11/25/20 02:00 (1) Chest pain Chest pain type: unspecified Qualified Code(s): R07.9 - Chest pain, unspecified
--- NOTE | 2020-11-25 14:54 | Hospitalist Progress Note ---
Date of Service November 25, 2020 Assessment & Plan (1) Acute hypotension: Chronic alcohol abuse/alcohol withdrawal: On admission alcohol level more than 200 Patient started on gabapentin withdrawal protocol Monitor Chest pain Noncardiac, patient had reproducible chest wall pain. Cardiac stress test negative Patient will be transferred out of PCU Continue medical telemetry for risk of alcohol withdrawal Anxiety disorder/depression: Psych consult appreciated Patient will need continued outpatient follow-up for medication adjustment. Disposition: Discharged home in next 1 to 2 days if remains medically stable Admission and Anticipated Discharge Date Admission Date: November 25, 2020 Subjective Patient reports chest pain has improved, appears to be very sedated, On gabapentin alcohol withdrawal protocol Does not have any cough no shortness of breath, Patient is asking to be Discharged home Cardiac stress test negative for stress-induced ischemia today Review of Systems Review of Systems: Unobtainable due to reduced consciousness (Very sleepy, falls asleep in mid sentence) Physical Exam Physical Exam: Physical exam: General: No acute distress, patient appears to be sedated HEENT: PERRLA, EOMI, Heart: Regular S1-S2, no carotid bruit, no JVD, no lower extremity edema Lungs: Clear to auscultate, no wheeze or rales Abdomen: Soft nontender, no organomegaly Extremity: No cyanosis, no deformity, Neuro: No focal neurological deficit Psych: Appears to be very somnolent, secondary to medication/gabapentin? Results & Data Results & Data ([facility]) Vital Signs (Past 12 Hours) Vital Signs Temp Pulse Pulse Resp BP Pulse Ox Pulse Ox 11/25/20 11:45 37.0 C 76 20 104/71 97 11/25/20 07:00 37.0 C 85 18 111/67 95 11/25/20 04:33 86 11/25/20 04:03 36.9 C 87 18 106/58 L 94 11/25/20 03:16 94
--- NOTE | 2020-11-25 16:11 | Electrocardiogram Report ---
Test Reason : Blood Pressure : / mmHG Vent. Rate : 118 BPM Atrial Rate : 118 BPM P-R Int : 136 ms QRS Dur : 082 ms QT Int : 358 ms P-R-T Axes : 052 054 036 degrees QTc Int : 501 ms Sinus tachycardia Possible Inferior infarct , age undetermined Nonspecific ST abnormality Abnormal ECG When compared with ECG of 10-APR-2019 07:09, Vent. rate has increased BY 43 BPM Borderline criteria for Inferior infarct are now Present Confirmed by Tiburcio Miles ([id number]) on 11/25/2020 4:11:20 PM Referred By: REFERRED SELF Confirmed By:Tiburcio Miles
[2020-11-25] MEDS: LORazepam 1 MG/2 ML VIAL IV PRN (19:38)
[2020-11-26] MEDS: GABAPENTIN 600 MG TAB PO SCH ×2 (05:30→12:59)
[2020-11-26] MEDS: LORazepam 1 MG/2 ML VIAL IV PRN ×2 (08:00→15:56)
[2020-11-26] MEDS: ENOXAPARIN INJ 40 MG/0.4 ML SYR SQ SCH (08:15)
[2020-11-26] MEDS: ASPIRIN 81 MG ECTAB PO SCH (08:15)
[2020-11-26] MEDS: THIAMINE HCL 100 MG TAB PO SCH ×2 (08:16→11:29)
[2020-11-26] MEDS: FOLIC ACID 1 MG TAB PO SCH (08:16)
[2020-11-26] MEDS: MULTIVITAMIN TAB PO SCH (08:16)
[2020-11-26] MEDS: IBUPROFEN 600 MG TAB PO PRN (12:58)
--- NOTE | 2020-11-26 14:04 | Communication Note ---
Date of Service: November 26, 2020 received update from Cardiology pt's resting echo shows highly mobile mitral valve vegetation /possible endocarditis pt will be started on IV abx per protocol ID consult requested Blood cultures obtained on 11/23: no growth
[2020-11-26] MEDS ORDERED: VANCOMYCIN HCL 1,750 MG in SODIUM CHLORIDE 0.9% 500 ML IV STA (14:16)
[2020-11-26] MEDS ORDERED: VANCOMYCIN CONSULT ACTIVE PRN (14:20)
--- NOTE | 2020-11-26 15:24 | Hospitalist Progress Note ---
Date of Service November 26, 2020 Assessment & Plan (1) Acute hypotension: Chronic alcohol abuse/alcohol withdrawal: On admission alcohol level more than 200 Patient started on gabapentin withdrawal protocol Requiring intermittent IV Ativan for withdrawal symptoms Mitral valve vegetation noted on resting echo Started on IV antibiotics Vanco/Rocephin for possible endocarditis Blood cultures been negative ID consult requested No history of intravenous drug abuse urine tox screen ordered Chest pain Possible musculoskeletal versus costochondritis Ordered as needed NSAIDs Noncardiac, patient had reproducible chest wall pain. Cardiac stress test negative Continue medical telemetry for risk of alcohol withdrawal Anxiety disorder/depression: Psych consult appreciated Patient will need continued outpatient follow-up for medication adjustment. Admission and Anticipated Discharge Date Admission Date: November 25, 2020 Subjective Patient is more awake and alert now, still requiring IV Ativan for alcohol withdrawal symptoms No cough or shortness of breath, chest pain has resolved Review of Systems Review of Systems: All systems reviewed & are unremarkable except as noted in Subjective Physical Exam Physical Exam: Physical exam: General: No acute distress, patient appears to be sedated HEENT: PERRLA, EOMI, Heart: Regular S1-S2, no carotid bruit, no JVD, no lower extremity edema Lungs: Clear to auscultate, no wheeze or rales Abdomen: Soft nontender, no organomegaly Extremity: No cyanosis, no deformity, Neuro: No focal neurological deficit Psych: Appears to be very somnolent, secondary to medication/gabapentin? Results & Data Results & Data ([facility]) Vital Signs (Past 12 Hours) Vital Signs Temp Pulse Resp BP Pulse Ox 11/26/20 11:23 36.7 C 92 H 18 108/60 94 11/26/20 07:18 36.6 C 68 18 119/73 95
[2020-11-26 15:38] LABS: Creatinine Clr Calc Pharmacy 92.3 ml/min; Est GFR (African American) 113.9; Est GFR (Non-African American) 98.3
--- NOTE | 2020-11-26 16:04 | Pharmacy Report ---
Pharmacy Abx Dose Short Note - Date of Service November 26, 2020 - Assessment & Plan Assessment 55 year old F receiving vancomycin/ceftriaxone for treatment of possible mitral valve endocarditis Day # 1 of antimicrobial therapy. Plan Vancomycin * Loading dose: 1750 mg (25 mg/kg) * Patient meets criteria for vancomycin AUC dosing nomogram AUC/MUKUND is the preferred PK/PD target for vancomycin Target AUC/MUKUND = 400-600 AUC guided dosing is effective and associated with decreased risk of nephrotoxicity 1000 mg (14 mg/kg) every 8 hours; will order trough prior to third maintenance dose Pharmacy will continue to follow and will adjust dose/frequency as necessary. Thank you.
--- NOTE | 2020-11-26 16:33 | Cardiology Progress Note ---
Date of Service November 26, 2020 Assessment & Plan (1) Chest pain: (2) Abnormal EKG: (3) Alcoholism: (4) Anxiety and depression: Dobutamine stress echocardiogram was negative for ischemia. No cardiac source for chest discomfort found. No further cardiac testing intervention necessary at this time. No cardiac follow-up necessary upon discharge either. (5) Endocarditis: Culture negative mitral valve endocarditis. Denies any recent illnesses. No embolic phenomenon noted. We will defer further management to our ID colleagues. Would like to repeat echocardiogram in 6 weeks and follow-up with cardiology at that time. Otherwise, okay to discharge from a cardiac standpoint. Admission and Anticipated Discharge Date Admission Date: November 25, 2020 Subjective Patient seen and examined, chart reviewed. Much more awake today and states that she feels well. Still anxious about the decision to admit her to a long care term facility. Denies any further chest pain or shortness of breath. Telemetry reviewed: Normal sinus rhythm without arrhythmia or significant ectopy. Review of Systems Review of Systems: All systems reviewed & are unremarkable except as noted in HPI & below Physical Exam Physical Exam: General: Very somnolent but responsive to verbal stimuli and questioning., alert and oriented x 3. No acute distress. HEENT: Normocephalic, atraumatic. Pupils equal, round and reactive to light and accommodation. Extraocular muscles are intact. Anicteric sclera. Moist mucous membranes. Neck: No JVD. No bruit. Cardiovascular: Regular. Positive S-4. Normal S-1 and S-2. No S-3. No murmurs or rubs. Pulmonary: Clear to auscultation B/L. No rales, rhonchi or wheezing Abdomen: Bowel sounds x 4, soft. No rebound, guarding or tenderness. No organomegaly. Extremities: No clubbing, cyanosis or edema. +2 pedal pulses bilaterally. Skin: Warm and dry. Results & Data ([facility]) Vital Signs (Past 12 Hours) Vital Signs Temp Pulse Resp BP Pulse Ox 11/26/20 15:53 37.1 C 75 18 119/76 94 11/26/20 11:23 36.7 C 92 H 18 108/60 94 11/26/20 07:18 36.6 C 68 18 119/73 95 (1) Chest pain Chest pain type: unspecified Qualified Code(s): R07.9 - Chest pain, unspecified
[2020-11-26] MEDS: cefTRIAXone SODIUM 2,000 MG in DEXTROSE 5% 50 ML IV SCH (19:38)
[2020-11-26] MEDS ORDERED: LORazepam 0.5 MG TAB PO STA (21:50)
[2020-11-27] MEDS: VANCOMYCIN HCL 1,000 MG in SODIUM CHLORIDE 0.9% 250 ML IV SCH ×4 (00:54→23:12)
[2020-11-27] MEDS: GABAPENTIN 600 MG TAB PO SCH ×2 (01:02→13:44)
[2020-11-27 02:49] LABS: Amphetamines+Metham, Urine Neg (Neg); Barbiturates, Urine Neg (Neg); Benzodiazepine, Urine Neg (Neg); Cocaine, Urine Neg (Neg); MDMA (Ecstacy), Urine Neg (Neg); Methadone, Urine Neg (Neg); Opiate, Urine Neg (Neg); Phencyclidine, Urine Neg (Neg)
[2020-11-27] MEDS: FOLIC ACID 1 MG TAB PO SCH (08:37)
[2020-11-27] MEDS: THIAMINE HCL 100 MG TAB PO SCH (08:38)
[2020-11-27] MEDS: ASPIRIN 81 MG ECTAB PO SCH (08:38)
[2020-11-27] MEDS: ENOXAPARIN INJ 40 MG/0.4 ML SYR SQ SCH (08:38)
[2020-11-27] MEDS: MULTIVITAMIN TAB PO SCH (08:39)
[2020-11-27] MEDS: cefTRIAXone SODIUM 2,000 MG in DEXTROSE 5% 50 ML IV SCH (13:50)
[2020-11-27] MEDS ORDERED: LORazepam 0.5 MG TAB PO STA (14:58)
--- NOTE | 2020-11-27 15:03 | Cardiology Progress Note ---
Date of Service November 27, 2020 Assessment & Plan (1) Chest pain: (2) Abnormal EKG: (3) Alcoholism: (4) Anxiety and depression: Dobutamine stress echocardiogram was negative for ischemia. No cardiac source for chest discomfort found. No further cardiac testing intervention necessary at this time. No cardiac follow-up necessary upon discharge either. (5) Endocarditis: Culture negative mitral valve endocarditis. Denies any recent illnesses. No embolic phenomenon noted. We will defer further management to our ID colleagues. Would like to repeat echocardiogram in 6 weeks and follow-up with cardiology at that time. Otherwise, okay to discharge from a cardiac standpoint. Admission and Anticipated Discharge Date Admission Date: November 25, 2020 Subjective Patient seen and examined, chart reviewed. States that she is feeling better today but still upset about the need to place her in a long-term care facility. Denies any recurrences of chest discomfort. Upon further questioning the patient remembers having a fever and myalgias several months ago along with other symptoms of possible upper respiratory tract infection. Telemetry reviewed: Normal sinus rhythm without arrhythmia. Review of Systems Review of Systems: All systems reviewed & are unremarkable except as noted in HPI & below Physical Exam Physical Exam: Physical Exam: General: Awake, alert and oriented x 3. No acute distress. HEENT: Normocephalic, atraumatic. Pupils equal, round and reactive to light and accommodation. Extraocular muscles are intact. Anicteric sclera. Moist mucous membranes. Neck: No JVD. No bruit. Cardiovascular: Regular. No S-4. Normal S-1 and S-2. No S-3. No murmurs, rubs or gallops. Pulmonary: Clear to auscultation bilaterally. No rales, rhonchi, or wheezing. Abdomen: Bowel sounds x 4, soft. No rebound, guarding or tenderness. No organomegaly. Extremities: No clubbing, cyanosis or edema. +2 pedal pulses bilaterally. Skin: Warm and dry. Results & Data ([facility]) Vital Signs (Past 12 Hours) Vital Signs Temp Pulse Pulse Resp BP BP Pulse Ox 11/27/20 11:07 37.0 C 85 18 106/65 95 11/27/20 08:19 36.7 C 65 18 125/81 98 11/27/20 07:00 68 11/27/20 04:00 36.9 C 77 18 118/80 96 (1) Chest pain Chest pain type: unspecified Qualified Code(s): R07.9 - Chest pain, unspecified
[2020-11-27] MEDS ORDERED: VANCOMYCIN TROUGH ONE (15:30)
--- NOTE | 2020-11-27 15:35 | Hospitalist Progress Note ---
Date of Service November 27, 2020 Assessment & Plan (1) Acute hypotension: Chronic alcohol abuse/alcohol withdrawal: On admission alcohol level more than 200 Patient started on gabapentin withdrawal protocol has been doing well , has not required any Ativan per AWSS protocol awake and alert today Does not have any alcohol withdrawal symptoms Patient is counseled extensively regarding alcohol addiction, was in inpatient rehab in the past. wants to follow-up with outpatient counseling and outpatient addiction clinic, information for which is given by case management Possible Bacterial Endocarditis /mobile Mitral valve vegetation noted on ECHO Started on IV antibiotics Vanco/Rocephin for possible bacterial endocarditis Blood cultures been negative/pt may need 6 weeks of IV abx ID consult requested awaiting input tox screen been negative appreciate input from Cardiology repeat ECHO in 6 weeks to assess resolution of vegetation Chest pain symptoms has resolved Possible musculoskeletal versus costochondritis Ordered as needed NSAIDs Noncardiac, patient had reproducible chest wall pain. Cardiac stress test negative Anxiety disorder/depression: Psych consult appreciated Patient will need continued outpatient follow-up for medication adjustment. Disposition: Plan for discharge home tomorrow, will need arrangement for home IV antibiotics, and ultrasound-guided IV line placement. Admission and Anticipated Discharge Date Admission Date: November 25, 2020 Subjective Patient is awake and alert today, no sign or symptom of alcohol withdrawal Worried about her heart valve vegetation no complain chest pain or shortness of breath, has been afebrile Review of Systems Review of Systems: All systems reviewed & are unremarkable except as noted in Subjective Physical Exam Physical Exam: Physical exam: General: No acute distress, patient appears to be sedated HEENT: PERRLA, EOMI, Heart: Regular S1-S2, no carotid bruit, no JVD, no lower extremity edema Lungs: Clear to auscultate, no wheeze or rales Abdomen: Soft nontender, no organomegaly Extremity: No cyanosis, no deformity, Neuro: No focal neurological deficit Psych: Appears to be very somnolent, secondary to medication/gabapentin? Results & Data Results & Data ([facility]) Vital Signs (Past 12 Hours) Vital Signs Temp Pulse Pulse Resp BP BP Pulse Ox 11/27/20 11:07 37.0 C 85 18 106/65 95 11/27/20 08:19 36.7 C 65 18 125/81 98 11/27/20 07:00 68 11/27/20 04:00 36.9 C 77 18 118/80 96
--- NOTE | 2020-11-27 16:30 | Pharmacy Report ---
Pharmacy Abx Dose Short Note - Date of Service November 27, 2020 - Assessment & Plan Assessment 55 year old F receiving vancomycin for endocarditis Day # 2 of antimicrobial therapy. Plan Vancomycin * Trough level came back therapeutic today at ~16 mcg/ml (goal 15-20 mcg/ml for endocarditis) * Plan to continue same vancomycin dosing for now of 1 g iv q 8 hr. * Will plan to recheck in next 2-3 days or sooner if renal function changes Pharmacy will continue to follow and will adjust dose/frequency as necessary. Thank you.
[2020-11-27] MEDS: LORazepam 0.5 MG TAB PO PRN (20:40)
[2020-11-28] MEDS: IBUPROFEN 600 MG TAB PO PRN ×2 (04:28→21:52)
[2020-11-28] MEDS: LORazepam 0.5 MG TAB PO PRN ×3 (04:29→21:52)
[2020-11-28 06:18] LABS: Creatinine Clr Calc Pharmacy 128.1 ml/min; Est GFR (African American) 126.2; Est GFR (Non-African American) 108.9
[2020-11-28] MEDS: ENOXAPARIN INJ 40 MG/0.4 ML SYR SQ SCH (07:45)
[2020-11-28] MEDS: ASPIRIN 81 MG ECTAB PO SCH (07:47)
[2020-11-28] MEDS: THIAMINE HCL 100 MG TAB PO SCH (07:47)
[2020-11-28] MEDS: FOLIC ACID 1 MG TAB PO SCH (07:48)
[2020-11-28] MEDS: MULTIVITAMIN TAB PO SCH (07:48)
[2020-11-28] MEDS: VANCOMYCIN HCL 1,000 MG in SODIUM CHLORIDE 0.9% 250 ML IV SCH (08:07)
--- NOTE | 2020-11-28 08:15 | Communication Note ---
Date of Service: November 28, 2020 Patient has mobile vegetation on anterior left of mitral valve, suggestive of bacterial endocarditis, Blood culture on 11/25 was no growth, ordered for repeat blood cultures She has been afebrile, other than chronic complaining of chronic fatigue symptoms no other issues. Very eager to be discharged home today, [facility] ID consult was placed day before yesterday, Consult is still pending. Given algaaciq valve bacterial endocarditis -patient will be discharged home with 6 weeks of IV vancomycin Allergy to amoxicillin noted Discussed with pharmacy, patient will be sent home with IV vancomycin 1500 mg twice daily Vanco trough should be checked on Monday morning before the first dose Vanco dose should be adjusted depending on the trough level, Labs should be sent to patient's family physician, Patient will need weekly lab: BMP, and trough level checked We will update case management, ordered to place ultrasound-guided IV access. Donna Everett MD
[2020-11-28] MEDS ORDERED: VANCOMYCIN HCL 1,500 MG in SODIUM CHLORIDE 0.9% 500 ML IV SCH (09:00)
--- NOTE | 2020-11-28 10:25 | Hospitalist Progress Note ---
Date of Service November 28, 2020 Assessment & Plan (1) Acute hypotension: Chronic alcohol abuse/alcohol withdrawal: On admission alcohol level more than 200 Patient started on gabapentin withdrawal protocol has been doing well , has not required any Ativan per AWSS protocol awake and alert today Does not have any alcohol withdrawal symptoms Patient is counseled extensively regarding alcohol addiction, was in inpatient rehab in the past. wants to follow-up with outpatient counseling and outpatient addiction clinic, information for which is given by case management Bacterial Endocarditis /mobile Mitral valve vegetation noted on ECHO ECHO : long very thin mobile vegetation on ant leaflet of mitral valve with motion into LVOF ( left ventricle out flow ) tract without obstruction high risk for septic emboli without IV ABx tx Started on IV antibiotics Vanco/Rocephin for bacterial endocarditis Blood cultures on 11/25/20 negative , in a setting of negative blood culture for stebbins left sided heart valve endocarditis : cont IV vancomycin 1500 mg BID for 6 wks ID consult requested awaiting input - PICC line and home health service ordered pt denies iV drug abuse tox screen been negative appreciate input from Cardiology repeat ECHO in 6 weeks to assess resolution of vegetation pt will cont to take aspirin 81 mg daily for stroke prophylaxis pt is updated non compliance of IV abx and Aspirin can cause the valve vegetation to propagate and cause acute septic stroke , which usually has severe debilitating consequences it is imperative to stay away for alcohol /keep sobriety in order to complete her treatment pt verbalized understanding Chest pain symptoms has resolved Possible musculoskeletal versus costochondritis Ordered as needed NSAIDs Noncardiac, patient had reproducible chest wall pain. Cardiac stress test negative Anxiety disorder/depression: Psych consult appreciated Patient will need continued outpatient follow-up for medication adjustment. Disposition: pt will need continued hospital stay till home Iv abx is arranged d Admission and Anticipated Discharge Date Admission Date: November 25, 2020 Subjective offers no new complains , feeling fine no fever or chills , no SOB or cough chest pain has resolved had uneventful night wants to go home today , will need 6 wks of IV abx for bacterial endocarditis IV vancomycin 1500mg BID received update from case management , Home health service can not come today evening for the second dose waiting to hear from home health agency if service could be provided tomorrow if not she has to stay till monday pt updated will need PICC line for 6 weeks of IV vancomycin , will get the consent Review of Systems Review of Systems: As per HPI, all 10 systems reviewed, all other ROS negative Physical Exam Physical Exam: Physical exam: General: No acute distress, patient appears to be sedated HEENT: PERRLA, EOMI, Heart: Regular S1-S2, no carotid bruit, no JVD, no lower extremity edema Lungs: Clear to auscultate, no wheeze or rales Abdomen: Soft nontender, no organomegaly Extremity: No cyanosis, no deformity, Neuro: No focal neurological deficit Psych: Appears to be very somnolent, secondary to medication/gabapentin? Results & Data Results & Data ([facility]) Vital Signs (Past 12 Hours) Vital Signs Temp Pulse Pulse Resp BP BP Pulse Ox 11/28/20 07:30 36.4 C L 68 16 112/71 94 11/28/20 03:48 36.3 C L 70 18 115/63 95 11/27/20 23:54 82 11/27/20 22:53 36.7 C 78 18 112/75 95
--- NOTE | 2020-11-28 11:05 | Communication Note ---
Date of Service: November 28, 2020 Received update from case management: Patient can be already used discharged on Monday, Home health not available to arranged home IV antibiotic over the weekend Patient will need PICC line for IV vancomycin dose, ordered Donna Everett MD
--- NOTE | 2020-11-28 11:39 | Pharmacy Report ---
Pharmacy Abx Dose Short Note - Date of Service November 28, 2020 - Assessment & Plan Assessment 55 year old F receiving vancomycin for treatment of endocarditis Day # 3 of antimicrobial therapy. Plan Vancomycin * Vancomycin dosing adjusted to 1500 mg iv q 12 hrs for easier outpatient regimen for home health. Per case management, home health prefers 0800/2000 times for vancomycin. Will adjust evening dose to reflect new times * Plan to order trough prior to the 0800 dose on Monday to ensure stable on new dosing. Communicated plan with provider. Patient to be discharged on Monday and will receive evening dose at home Pharmacy will continue to follow and will adjust dose/frequency as necessary. Thank you.
[2020-11-28] MEDS ORDERED: GABAPENTIN 600 MG TAB PO SCH (14:00)
[2020-11-28] MEDS: VANCOMYCIN HCL 1,500 MG in SODIUM CHLORIDE 0.9% 500 ML IV SCH (20:35)
[2020-11-29 06:41] LABS: Creatinine Clr Calc Pharmacy 170.1 ml/min; Est GFR (African American) 139.7; Est GFR (Non-African American) 120.5
--- NOTE | 2020-11-29 08:07 | Communication Note ---
Date of Service: November 29, 2020 Patient was eager to be discharged home today after evening dose, Discussed option with case management, Home health is arranged to come to patient's home at 8 PM for second dose Patient needs to be discharged home after a.m. dose of IV vancomycin tomorrow If patient leaves after evening dose, home health and antibiotics supply will not be available for the morning dose tomorrow. Patient will be updated, PICC line placed already And to discharge home tomorrow after 8:00 a.m. IV vancomycin infusion Donna Everett MD
[2020-11-29] MEDS: VANCOMYCIN HCL 1,500 MG in SODIUM CHLORIDE 0.9% 500 ML IV SCH ×2 (08:22→20:06)
[2020-11-29] MEDS: ASPIRIN 81 MG ECTAB PO SCH (08:27)
[2020-11-29] MEDS: THIAMINE HCL 100 MG TAB PO SCH (08:27)
[2020-11-29] MEDS: MULTIVITAMIN TAB PO SCH (08:27)
[2020-11-29] MEDS: FOLIC ACID 1 MG TAB PO SCH (08:28)
[2020-11-29] MEDS: ENOXAPARIN INJ 40 MG/0.4 ML SYR SQ SCH (08:28)
[2020-11-29] MEDS: hydrOXYzine HCl 10 MG TAB PO PRN ×3 (10:28→23:17)
--- NOTE | 2020-11-29 11:35 | Hospitalist Progress Note ---
Date of Service November 29, 2020 Assessment & Plan (1) Acute hypotension: Bacterial Endocarditis /mobile Mitral valve vegetation noted on ECHO ECHO : long very thin mobile vegetation on ant leaflet of mitral valve with motion into LVOF ( left ventricle out flow ) tract without obstruction high risk for septic emboli without IV ABx tx Blood cultures on 11/25/20 negative , in a setting of negative blood culture for [place] left sided heart valve endocarditis : cont IV vancomycin 1500 mg BID for 6 wks [facility] ID consult requested awaiting input - PICC line placed, and home health services arranged for home IV antibiotic infusion pt denies iV drug abuse tox screen been negative appreciate input from Cardiology repeat ECHO in 6 weeks to assess resolution of vegetation pt will cont to take aspirin 81 mg daily for stroke prophylaxis pt is updated non compliance of IV abx and Aspirin can cause the valve vegetation to propagate and cause acute septic stroke , which usually has severe debilitating consequences it is imperative to stay away for alcohol /keep sobriety in order to complete her treatment pt verbalized understanding 11/29/2020 pt very eager to be discharged home today, after explaining in detail, home health will not be available tomorrow a.m. for first dose of IV antibiotic infusion Scheduled to come for the 8 PM evening dose on Monday11/30/2020 Plan to discharge home after 8 AM dose of IV vancomycin tomorrow. 11/30/2020 Patient is agreeable, complains of worsening anxiety symptoms due to hospital stay Anxiety disorders Psychiatry consult appreciated, recommends outpatient follow-up when patient is sober, completed alcohol detoxification Requesting to increase frequency of the as needed Ativan, Patient is counseled, Ativan only providing short-term relief, and high risk for dependency especially in the setting of alcohol abuse. Patient is ordered as needed Vistaril, offered for SSRI-Escitalopram Patient declines, she is already overwhelmed with IV antibiotic treatment, Scheduled to see psychiatric at [facility] with Dr. Doyle Patient will follow-up with her psychiatrist, and seek treatment for her chronic anxiety disorder, patient is agreeable Chronic alcohol abuse/alcohol withdrawal: On admission alcohol level more than 200 Patient patient was treated with gabapentin withdrawal protocol Completed detox process has been doing well , has not required any Ativan per AWSS protocol Does not have any alcohol withdrawal symptoms Patient is counseled extensively regarding alcohol addiction, was in inpatient rehab in the past. wants to follow-up with outpatient counseling and outpatient addiction clinic, information added to discharge instruction by case management Chest pain symptoms has resolved Possible musculoskeletal versus costochondritis Ordered as needed NSAIDs Noncardiac, patient had reproducible chest wall pain. Cardiac stress test negative Repeat transthoracic echo in 6 weeks to assess infective endocarditis/mitral valve vegetation Disposition: discharge home tomorrow after 8 AM IV vancomycin dose(pt is agreeable with the plan) Vancomycin trough level will be drawn before 8 AM dose Patient will need a repeat vancomycin trough level to be checked on Monday before a.m. dose, prescription is given to case management Admission and Anticipated Discharge Date Admission Date: November 25, 2020 Subjective Visit for bacterial infective endocarditis of anterior leaflet of mitral valve/alcohol intoxication/abuse/anxiety disorder Patient says she has been feeling fine for the last 2 to 3 days No weakness or paresthesia no fever or chills, energy level back to baseline No headache or visual symptoms, Has not have any symptoms of chest pain for past several days. Tolerating IV vancomycin infusion well, no adverse reaction or rash Understands. She needs total 6 weeks of IV vancomycin treatment for infective e ndocarditis Review of Systems Review of Systems: All systems reviewed & are unremarkable except as noted in Subjective Constitutional: no fever, no chills, no sweats, no body aches, no fatigue, no malaise and no anorexia Physical Exam Physical Exam: Physical exam: General: No acute distress, patient appears to be sedated HEENT: PERRLA, EOMI, Heart: Regular S1-S2, no carotid bruit, no JVD, no lower extremity edema Lungs: Clear to auscultate, no wheeze or rales Abdomen: Soft nontender, no organomegaly Extremity: No cyanosis, no deformity, Neuro: No focal neurological deficit Psych: Appears to be very somnolent, secondary to medication/gabapentin? Results & Data Results & Data ([facility]) Vital Signs (Past 12 Hours) Vital Signs Temp Pulse Resp BP Pulse Ox 11/29/20 06:59 36.6 C 69 16 118/74 97 11/28/20 23:28 36.4 C L 76 16 126/78 95
[2020-11-29] MEDS ORDERED: VANCOMYCIN TROUGH ONE (19:30)
[2020-11-29] MEDS: IBUPROFEN 600 MG TAB PO PRN (20:06)
[2020-11-29] MEDS: LORazepam 0.5 MG TAB PO PRN (20:06)
[2020-11-30] MEDS ORDERED: VANCOMYCIN TROUGH ONE ×2 (07:30)
[2020-11-30 08:11] LABS: Est GFR (African American) 126.2; Est GFR (Non-African American) 108.9
[2020-11-30] MEDS: VANCOMYCIN HCL 1,500 MG in SODIUM CHLORIDE 0.9% 500 ML IV SCH (08:26)
[2020-11-30] MEDS: ENOXAPARIN INJ 40 MG/0.4 ML SYR SQ SCH (08:26)
[2020-11-30] MEDS: THIAMINE HCL 100 MG TAB PO SCH (08:26)
[2020-11-30] MEDS: MULTIVITAMIN TAB PO SCH (08:26)
[2020-11-30] MEDS: FOLIC ACID 1 MG TAB PO SCH (08:26)
[2020-11-30] MEDS: ASPIRIN 81 MG ECTAB PO SCH (08:26)
--- NOTE | 2020-11-30 08:45 | Pharmacy Report ---
Pharmacy Abx Dose Short Note - Date of Service November 30, 2020 - Assessment & Plan Assessment 55 year old F receiving VANCOMYCIN 1500mg IV Q 12 hrs for treatment of culture negative L sided endocarditis Day # 5 of antimicrobial therapy No growth in BLCXs to date ID consult pending Renal fxn stable Plan Vancomycin * Trough level of 16.3 mcg/mL is therapeutic. Level was drawn at the appropriate time and prior doses hung mostly on schedule * Continue dose of 1500 mg IV every 12 hours * Goal trough level for endocarditis : 15 to 20 mcg/mL -OR- use goal AUC/MUKUND 400-600 if p'kinetic monitoring service available * Recommend rechecking trough in 2-3 days then once weekly on current regimen. Weekly renal fxn monitoring recommended at a minimum given prolonged treatment duration. Pharmacy will continue to follow and will adjust dose/frequency as necessary. Thank you.
[2020-11-30] MEDS: LORazepam 0.5 MG TAB PO PRN (10:32)
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
== END 2020-11-30 13:18 | disposition home health service (06) | DRG 289 ==
LOC: ED 21:26 → 2S 11-25 01:08 → 2N 11-25 16:42 → 2W 11-27 02:18 → 3W 11-28 23:36

== ENCOUNTER 2022-07-12 15:32 | Inpatient (IN) ==
[2022-07-12] MEDS ORDERED: ONDANSETRON INJ 2 MG/ML 2 ML VIAL ONE (16:32)
[2022-07-12 16:53] LABS: Basophils # (auto) 0.04 K/uL (0-0.2); Basophils % (auto) 0.8 %; Eosinophils # (auto) 0.01 K/uL (0-0.50); Eosinophils % (auto) 0.2 %; Hematocrit (blood only) 45.9 % (34.1-44.9); Hemoglobin 16.2 g/dl (12.0-16.0); Immature Granulocytes # (auto) 0.01 K/uL (0.00-0.02); Immature Granulocytes % (auto) 0.2 %; Lymphocytes # (auto) 2.45 K/uL (1.2-3.4); Lymphocytes % (auto) 49.5 %; Mean Corpuscular Hemoglobin 30.8 pg (25.0-34.0); Mean Corpuscular Hgb Conc 35.3 g/dL (32.0-36.0); Mean Corpuscular Volume 87.3 fL (80.0-100.0); Mean Platelet Volume 10.2 fL (9.4-12.3); Monocytes # (auto) 0.13 K/uL (0.24-0.82); Monocytes % (auto) 2.6 %; Neutrophils # (auto) 2.31 K/uL (1.4-6.5); Neutrophils % (auto) 46.7 %; Platelet Count 280 K/uL (130-400); RDW Coefficient of Variation 13.1 % (11.5-14.5); RDW Standard Deviation 41.2 fL (36.4-46.3); Red Blood Count 5.26 M/uL (3.93-5.22); White Blood Count 4.95 K/ul (4.8-10.8)
[2022-07-12 17:08] LABS: Albumin Globulin Ratio 2.1 (0.9-2); Bilirubin,Total 0.6 mg/dl (0.2-1.0); Creatinine Clr Calc Pharmacy 86.8 ml/min; Est GFR (African American) 115.8 ml/min; Est GFR (Non-African American) 99.9 ml/min; Globulin 2.4 gm/dl (2.5-4.0); Potassium 4.3 mmol/L (3.5-5.1); Total Protein 7.4 gm/dl (6.0-8.3)
[2022-07-12 17:09] LABS: Acetaminophen < 3 ug/ml (10-30); Salicylate < 3.0 mg/dl (3.0-30)
[2022-07-12] MEDS ORDERED: LORazepam 2 MG/1 ML VIAL IV STA (19:26)
[2022-07-12] MEDS ORDERED: LORazepam 2 MG in SYRINGE 0 ML IV PRN ×2 (19:26→23:14)
[2022-07-12] MEDS ORDERED: LORazepam 1 MG in SYRINGE 0 ML IV PRN (19:26)
[2022-07-12] MEDS ORDERED: LORazepam 3 MG in SYRINGE 0 ML IV PRN ×2 (19:26→23:14)
[2022-07-12] MEDS ORDERED: Ativan IV Alcohol Withdrawal--Active Protocol IV PRN ×2 (19:26→23:14)
[2022-07-12] MEDS ORDERED: MULTI-VITAMIN INFUSION 10 ML, THIAMINE HCL 100 MG, FOLIC ACID 1 MG in SODIUM CHLORIDE 0... IV ONE (19:26)
[2022-07-12 20:06] LABS: Appearance Urine Clear (Clear); Bacteria Urine Automated Negative (Negative); Bilirubin Urine Negative (Negative); Blood Urine Negative (Negative); Color Urine Yellow; Epithelial Cell Urine Auto >30 /lpf (0-5); Glucose Urine UA Negative (Negative); Ketones Urine 1+ (Negative); Leukocyte Esterase Urine Trace (Negative); Nitrite Urine Negative (Negative); Protein Urine Trace (Negative); RBC Urine Automated 0-4 /hpf (0-4); Specific Gravity Urine 1.022 (1.000-1.030); Urobilinogen Urine Negative (Negative)
[2022-07-12 21:28] LABS: Amphetamines+Metham, Urine Neg (Neg); Barbiturates, Urine Neg (Neg); Benzodiazepine, Urine Neg (Neg); Cocaine, Urine Neg (Neg); MDMA (Ecstacy), Urine Neg (Neg); Methadone, Urine Neg (Neg); Opiate, Urine Neg (Neg); Phencyclidine, Urine Neg (Neg)
--- NOTE | 2022-07-12 22:24 | Emergency Department Note ---
Impression & Plan Alcohol intoxication, Alcohol withdrawal, Dehydration ED Provider Note NAME: LESLIE HANSEN AGE: 57 SEX: F ARRIVES VIA: Walk-In INFORMANT: Patient ED PROVIDER(S): Konstantin Hadley MD CHIEF COMPLAINT: Alcohol withdrawal PLAN: Disposition: Admit MEDICAL DECISION MAKING: The patient is a pleasant 57-year-old woman with a past medical history of prior alcohol abuse/dependence where she reports she had been sober for the past year but recently relapsed around and over the past week drinking heavily every day who presents to the emergency department for evaluation of alcohol withdrawal and detox/rehab request. She denies any fevers, chills, cough, congestion, GI or symptoms. She reports that she began drinking alcohol around the holidays in the setting of feeling sad about the of her which occurred in February. On arrival the patient is anxious appearing but no acute distress, afebrile with heart in the 110s and vital signs otherwise stable. She appears clinically dry. She is mildly tremulous. WBC and platelets within normal limits. H/H 16.2/45.9 consistent with the patient's clinically dry appearance. Chemistry with bicarbonate of 20 and anion gap of 19 likely related to patient's alcohol consumption. TSH within normal limits. UA with 1+ ketones consistent with the patient's clinically dry appe arance. WBCs present however appears contaminated. Medical alcohol 251. COVID-19 RNA, ANANTH test was negative. Patient treated with IV fluid hydration with banana bag and IV Ativan. She agrees with plan for admission for further management due to high risk for severe alcohol withdrawal. [facility] who will evaluate the patient for admission. Triage Nursing notes reviewed and agree them. Prior medical records reviewed Vital Signs: reviewed Differential diagnosis: Overdose, toxicologic, infection, hypoglycemia, electrolyte abnormalities, cardiac sources, intracerebral event, neurologic, trauma, as well as other pathologies. ER treatment provided: See below. Diagnostics interpreted by me: Cardiac Monitoring: An order for continuous cardiac monitoring was placed and demonstrated sinus tachycardia, 112 bpm, no ectopy. Laboratory studies: See below Imaging studies: See below Consultation(s): [facility] who will evaluate the patient for admission. HPI: The patient is a pleasant 57-year-old woman with a past medical history of prior alcohol abuse/dependence where she reports she had been sober for the past year but recently relapsed around and over the past week drinking heavily every day who presents to the emergency department for evaluation of alcohol withdrawal and detox/rehab request. She denies any fevers, chills, cough, congestion, GI or symptoms. She reports that she began drinking alcohol around the holidays in the setting of feeling sad about the of her which occurred in February. ROS: See above HPI for pertinent positives & negatives. A total of 10 systems re viewed and were otherwise negative. VITALS:See Below PHYSICAL EXAMINATION: GENERAL: Awake, alert, anxious-appearing, in no distress HENT: Normocephalic, atraumatic. Oropharynx with dry mucous membranes and otherwise unremarkable. EYES: Normal conjunctiva. Sclera non-icteric. NECK: Supple. No nuchal rigidity. FROM. No JVD. RESPIRATORY: Clear to auscultation. CARDIAC: Tachycardic rate, normal rhythm. Extremities warm and well perfused. Pulses equal. ABDOMEN: Soft, non-distended. No tenderness to palpation. No rebound or guarding. No masses. RECTAL: Deferred. MUSCULOSKELETAL: Chest examination reveals no tenderness. The back is symmetrical on inspection without obvious abnormality. There is no CVA tenderness to palpation. No joint edema. LOWER EXTREMITIES: Calves are equal size bilaterally and non-tender. No edema. No discoloration. NEURO: Normal sensorium. No sensory or motor deficits noted. Mildly tremulous. SKIN: No rash or jaundice noted. Konstantin Hadley MD Past Med/Surg History Medical History Anxiety and depression Chest pain HX DSE done October 2020- negative for ischemia but did show highly mobile mass/vegation on MV Chronic back pain NECK AND LOWER BACK-NECK FULL ROM Dyslipidemia Per records - PT NOT SURE Endocarditis 11/24/20 - culture negative endocarditis - tx'ed with six weeks IV abxs PER PT: SUSBSEQUENT TESTING PER DR HATFIELD - DIDN'T FEEL C/P WAS RELATED TO ENDOCARDITIS AND THAT IT WAS RELATED TO MVP. Mitral valve prolapse SUMMER [address] HATFIELD Scoliosis Surgical History History of blepharoplasty History of transesophageal echocardiography (ARTURO) Family History Brother Coronary heart disease Fatal [place] age 55 Diabetes Father Coronary heart disease Diabetes Hypertension Mother Coronary heart disease Social History Smoking Status: Never smoker Second Hand Exposure: No; Hx Alcohol Use: No Hx Substance Use: No Preferred Language: Tajik Communication Ability: Effective Visual Impairment: No Limitations 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: Normal Early [employer] Director Required: No Beliefs That Will Affect Care: None marital status: Current Living Situation: Family Current Living Situation Comment: SON LIVES DOWNSTAIRS current occupational status: retired Feels Safe at Home: Yes Assistive Devices: Contacts and Glasses Allergies Allergies Allergy/AdvReac Type Severity Reaction Status Date / Time amoxicillin Allergy Intermediate RASH/HIVES Verified 07/12/22 20:58 azithromycin AdvReac Mild Gastrointestinal Verified 07/12/22 20:58 Upset Home Meds Home Medications Medication Instructions Recorded Confirmed lorazepam 0.5 mg tablet 0.5 mg PO HS PRN Anxiety 01/22/21 07/12/22 multivitamin 1 tab PO DAILY 07/12/22 07/12/22 Results & Data (ED) Vital Signs Vital Signs - 24 hr 07/12/22 15:55 07/12/22 20:41 07/12/22 19:45 Temperature 37.1 C Temperature Source Temporal Artery Scan Pulse Rate 112 H 101 H Pulse Rate [Right Finger] 84 Pulse Rate from SpO2 Sensor 102 H Pulse Rhythm [Right Finger] Regular Pulse Strength [Right Finger] Normal Respiratory Rate 18 16 15 Respiratory Effort / Characteristics Non-Labored Non-Labored Respiratory Depth Normal Normal Respiratory Pattern Regular Blood Pressure 131/83 133/83 Blood Pressure [Right Arm] 186/110 H Blood Pressure Mean 99 99 Blood Pressure Mean [Right Arm] 135 Pulse Oximetry 95 91 95 Oxygen Delivery Method Room Air Room Air Sepsis Recent Fever Within 48 Hours No Sepsis New/Unexplained Change in Mental Status No Sepsis Action Taken by Nursing No Action Required 07/12/22 20:00 07/12/22 20:27 07/12/22 21:00 Temperature Temperature Source Pulse Rate 104 H 96 H 102 H Pulse Rate [Right Finger] Pulse Rate from SpO2 Sensor 102 H Pulse Rhythm [Right Finger] Pulse Strength [Right Finger] Respiratory Rate 21 17 18 Respiratory Effort / Characteristics Respiratory Depth Respiratory Pattern Blood Pressure 120/91 131/64 120/65 Blood Pressure [Right Arm] Blood Pressure Mean 100 86 83 Blood Pressure Mean [Right Arm] Pulse Oximetry 95 Oxygen Delivery Method Sepsis Recent Fever Within 48 Hours Sepsis New/Unexplained Change in Mental Status Sepsis Action Taken by Nursing Laboratory Data Attestation: I reviewed the patient's lab results. Result diagrams: 07/12/22 16:30 07/12/22 16:30 Lab Results 07/12/22 07/12/22 07/12/22 Range/Units 16:30 16:30 16:30 WBC 4.95 (4.8-10.8) K/ul RBC 5.26 H (3.93-5.22) M/uL Hgb 16.2 H (12.0-16.0) g/dl Hct 45.9 H (34.1-44.9) % MCV 87.3 (80.0-100.0) fL MCH 30.8 (25.0-34.0) pg MCHC 35.3 (32.0-36.0) g/dL RDW Std Deviation 41.2 (36.4-46.3) fL RDW Coeff of Diamond 13.1 (11.5-14.5) % Plt Count 280 (130-400) K/uL MPV 10.2 (9.4-12.3) fL Immature Gran % (Auto) 0.2 % Neut % (Auto) 46.7 % Lymph % (Auto) 49.5 % [place] % (Auto) 2.6 % Eos % (Auto) 0.2 % Baso % (Auto) 0.8 % Neut # (Auto) 2.31 (1.4-6.5) K/uL Lymph # (Auto) 2.45 (1.2-3.4) K/uL [place] # (Auto) 0.13 L (0.24-0.82) K/uL Eos # (Auto) 0.01 (0-0.50) K/uL Baso # (Auto) 0.04 (0-0.2) K/uL Immature Gran # (Auto) 0.01 (0.00-0.02) K/uL Sodium 138 (136-145) mmol/L Potassium 4.3 (3.5-5.1) mmol/L Chloride 99 (98-107) mmol/L Carbon Dioxide 20 L (21-32) mmol/L Anion Gap 19 H (3-11) BUN 14 (6-23) mg/dl Creatinine 0.61 (0.6-1.2) mg/dl Est Cr Clr Drug Dosing 86.8 ml/min Est GFR ( Amer) 115.8 ml/min Est GFR (Non-Af Amer) 99.9 ml/min BUN/Creatinine Ratio 23.0 H (10-20) Glucose 117 H (70-99(Fasting)) mg/dl Calcium 9.0 (8.5-10.1) mg/dl Magnesium (1.7-2.4) mg/dl Total Bilirubin 0.6 (0.2-1.0) mg/dl AST 26 (13-39) U/L ALT 21 (7-52) U/L Alkaline Phosphatase 59 (34-104) U/L Total Protein 7.4 (6.0-8.3) gm/dl Albumin 5.0 (3.4-5.0) gm/dl Globulin 2.4 L (2.5-4.0) gm/dl Albumin/Globulin Ratio 2.1 H (0.9-2) TSH 0.706 (0.300-4.500) uIu/ml Urine Color Urine Appearance (Clear) Urine pH (4.5-7.5) Ur Specific [place] (1.000-1.030) Urine Protein (Negative) Urine Glucose (UA) (Negative) Urine Ketones (Negative) Urine Blood (Negative) Urine Nitrite (Negative) Urine Bilirubin (Negative) Urine Urobilinogen (Negative) Ur Leukocyte Esterase (Negative) Urine WBC (Auto) (0-5) /hpf Urine RBC (Auto) (0-4) /hpf U Hyaline Cast (Auto) (0-5) /lpf U Epithel Cells (Auto) (0-5) /lpf Urine Bacteria (Auto) (Negative) Salicylates (3.0-30) mg/dl Urine Opiates Screen (Neg) Ur Methadone, Qual (Neg) Acetaminophen (10-30) ug/ml Urine Barbiturates (Neg) Ur Phencyclidine (PCP) (Neg) U Amphetamin/Meth Scrn (Neg) MDMA (Ecstasy) Screen (Neg) U Benzodiazepines Scrn (Neg) Ur Cocaine Metabolite (Neg) U Marijuana (THC) Screen (Neg) Ethyl Alcohol mg/dL (<10.0) mg/dl SARS-CoV-2, RNA, NAAT (NEGATIVE) 07/12/22 07/12/22 07/12/22 Range/Units 16:30 16:30 16:30 WBC (4.8-10.8) K/ul RBC (3.93-5.22) M/uL Hgb (12.0-16.0) g/dl Hct (34.1-44.9) % MCV (80.0-100.0) fL MCH (25.0-34.0) pg MCHC (32.0-36.0) g/dL RDW Std Deviation (36.4-46.3) fL RDW Coeff of Diamond (11.5-14.5) % Plt Count (130-400) K/uL MPV (9.4-12.3) fL Immature Gran % (Auto) % Neut % (Auto) % Lymph % (Auto) % [place] % (Auto) % Eos % (Auto) % Baso % (Auto) % Neut # (Auto) (1.4-6.5) K/uL Lymph # (Auto) (1.2-3.4) K/uL [place] # (Auto) (0.24-0.82) K/uL Eos # (Auto) (0-0.50) K/uL Baso # (Auto) (0-0.2) K/uL Immature Gran # (Auto) (0.00-0.02) K/uL Sodium (136-145) mmol/L Potassium (3.5-5.1) mmol/L Chloride (98-107) mmol/L Carbon Dioxide (21-32) mmol/L Anion Gap (3-11) BUN (6-23) mg/dl Creatinine (0.6-1.2) mg/dl Est Cr Clr Drug Dosing ml/min Est GFR ( Amer) ml/min Est GFR (Non-Af Amer) ml/min BUN/Creatinine Ratio (10-20) Glucose (70-99(Fasting)) mg/dl Calcium (8.5-10.1) mg/dl Magnesium 2.3 (1.7-2.4) mg/dl Total Bilirubin (0.2-1.0) mg/dl AST (13-39) U/L ALT (7-52) U/L Alkaline Phosphatase (34-104) U/L Total Protein (6.0-8.3) gm/dl Albumin (3.4-5.0) gm/dl Globulin (2.5-4.0) gm/dl Albumin/Globulin Ratio (0.9-2) TSH (0.300-4.500) uIu/ml Urine Color Urine Appearance (Clear) Urine pH (4.5-7.5) Ur Specific [place] (1.000-1.030) Urine Protein (Negative) Urine Glucose (UA) (Negative) Urine Ketones (Negative) Urine Blood (Negative) Urine Nitrite (Negative) Urine Bilirubin (Negative) Urine Urobilinogen (Negative) Ur Leukocyte Esterase (Negative) Urine WBC (Auto) (0-5) /hpf Urine RBC (Auto) (0-4) /hpf U Hyaline Cast (Auto) (0-5) /lpf U Epithel Cells (Auto) (0-5) /lpf Urine Bacteria (Auto) (Negative) Salicylates < 3.0 L (3.0-30) mg/dl Urine Opiates Screen (Neg) Ur Methadone, Qual (Neg) Acetaminophen < 3 L (10-30) ug/ml Urine Barbiturates (Neg) Ur Phencyclidine (PCP) (Neg) U Amphetamin/Meth Scrn (Neg) MDMA (Ecstasy) Screen (Neg) U Benzodiazepines Scrn (Neg) Ur Cocaine Metabolite (Neg) U Marijuana (THC) Screen (Neg) Ethyl Alcohol mg/dL 251.5 H (<10.0) mg/dl SARS-CoV-2, RNA, NAAT (NEGATIVE) 07/12/22 07/12/22 07/12/22 Range/Units 19:51 19:51 19:51 WBC (4.8-10.8) K/ul RBC (3.93-5.22) M/uL Hgb (12.0-16.0) g/dl Hct (34.1-44.9) % MCV (80.0-100.0) fL MCH (25.0-34.0) pg MCHC (32.0-36.0) g/dL RDW Std Deviation (36.4-46.3) fL RDW Coeff of Diamond (11.5-14.5) % Plt Count (130-400) K/uL MPV (9.4-12.3) fL Immature Gran % (Auto) % Neut % (Auto) % Lymph % (Auto) % [place] % (Auto) % Eos % (Auto) % Baso % (Auto) % Neut # (Auto) (1.4-6.5) K/uL Lymph # (Auto) (1.2-3.4) K/uL [place] # (Auto) (0.24-0.82) K/uL Eos # (Auto) (0-0.50) K/uL Baso # (Auto) (0-0.2) K/uL Immature Gran # (Auto) (0.00-0.02) K/uL Sodium (136-145) mmol/L Potassium (3.5-5.1) mmol/L Chloride (98-107) mmol/L Carbon Dioxide (21-32) mmol/L Anion Gap (3-11) BUN (6-23) mg/dl Creatinine (0.6-1.2) mg/dl Est Cr Clr Drug Dosing ml/min Est GFR ( Amer) ml/min Est GFR (Non-Af Amer) ml/min BUN/Creatinine Ratio (10-20) Glucose (70-99(Fasting)) mg/dl Calcium (8.5-10.1) mg/dl Magnesium (1.7-2.4) mg/dl Total Bilirubin (0.2-1.0) mg/dl AST (13-39) U/L ALT (7-52) U/L Alkaline Phosphatase (34-104) U/L Total Protein (6.0-8.3) gm/dl Albumin (3.4-5.0) gm/dl Globulin (2.5-4.0) gm/dl Albumin/Globulin Ratio (0.9-2) TSH (0.300-4.500) uIu/ml Urine Color Yellow Urine Appearance Clear (Clear) Urine pH 5.0 (4.5-7.5) Ur Specific [place] 1.022 (1.000-1.030) Urine Protein Trace H (Negative) Urine Glucose (UA) Negative (Negative) Urine Ketones 1+ H (Negative) Urine Blood Negative (Negative) Urine Nitrite Negative (Negative) Urine Bilirubin Negative (Negative) Urine Urobilinogen Negative (Negative) Ur Leukocyte Esterase Trace H (Negative) Urine WBC (Auto) 5-10 H (0-5) /hpf Urine RBC (Auto) 0-4 (0-4) /hpf U Hyaline Cast (Auto) 1-5 (0-5) /lpf U Epithel Cells (Auto) >30 H (0-5) /lpf Urine Bacteria (Auto) Negative (Negative) Salicylates (3.0-30) mg/dl Urine Opiates Screen Neg (Neg) Ur Methadone, Qual Neg (Neg) Acetaminophen (10-30) ug/ml Urine Barbiturates Neg (Neg) Ur Phencyclidine (PCP) Neg (Neg) U Amphetamin/Meth Scrn Neg (Neg) MDMA (Ecstasy) Screen Neg (Neg) U Benzodiazepines Scrn Neg (Neg) Ur Cocaine Metabolite Neg (Neg) U Marijuana (THC) Screen Neg (Neg) Ethyl Alcohol mg/dL (<10.0) mg/dl SARS-CoV-2, RNA, NAAT NEGATIVE (NEGATIVE) Administered Medications Discontinued Medications Multivitamins 10 ml/ Thiamine HCl 100 mg/ Folic Acid 1 mg/Sodium Chloride 1,011.2 mls @ 1,011.2 mls/hr IV .Q1H ONE Stop: 07/12/22 20:25 Last Admin: 07/12/22 20:19 Dose: 1,011.2 mls/hr Documented By: ROMAN Lorazepam (Lorazepam 1 Mg/1 Ml Syr) 1 mg IV NOW STA; Protocol Stop: 07/12/22 19:27 Last Admin: 07/12/22 19:43 Dose: 1 mg Documented By: LEILA Ondansetron HCl (Ondansetron Inj 2 Mg/Ml 2 Ml Vial) Confirm Administered Dose 4 mg .ROUTE .STK-MED ONE Stop: 07/12/22 16:33 Last Admin: 07/12/22 16:35 Dose: 4 mg Documented By: DARRYL Discharge Plan Visit Data Chief Complaint: Detox Request Stated Complaint: ALCOHOL INTOXICATION ED Provider: Konstantin Hadley Discharge Problem: Alcohol intoxication, Alcohol withdrawal, Dehydration Forms Stand Alone Forms: My [facility], Suicide Prevention Resources Prescriptions Prescriptions: No Action lorazepam 0.5 mg Tablet 0.5 mg PO HS PRN (Reason: Anxiety) multivitamin Tablet 1 tab PO DAILY Referrals Referrals: Harsh Ram DO [Primary Care Provider] -
--- NOTE | 2022-07-12 23:06 | History and Physical Report ---
DATE OF ADMISSION: 07/12/2022. CHIEF COMPLAINT: Alcoholism and detox request. HISTORY OF PRESENT ILLNESS: This is a 57-year-old female with past medical history significant for hyperlipidemia, fatty liver, history of rectocele, history of alcohol abuse, history of generalized anxiety disorder, depression, presents with alcoholism. The patient says she used to drink alcohol in the past on and off. Her in November and she was doing okay until Thanks when she missed him. Next day of Thanks, she felt like drinking alcohol again and she is drinking almost one bottle of wine every day. She has a daughter and son, who are in their 20s. She is not doing anything at home. She is sleeping all the time and not doing her dishes and other things. She felt like she has to be more responsible and she decided to come to the hospital for detox request. Hemodynamically stable. Does not have any tremors, alert and oriented. Denies any headache, no dizziness, no blurred visions, no earache, no runny nose, no sore throat. No cough. Appetite is okay. No difficulty swallowing. No recent significant weight gain or weight loss. No chest pain, no shortness of breath, no nausea, no abdominal pain. Normal bowel and bladder movements. No swelling in the legs, no rash. ALLERGIES: AMOXICILLIN, AZITHROMYCIN. PAST MEDICAL HISTORY: As mentioned above. PAST SURGICAL HISTORY: Dilatation and curettage, reduction of the breast. MEDICATIONS: The patient is on bupropion 150 mg p.o. daily, Ativan 0.5 mg p.o. p.r.n. for anxiety, multivitamin 1 capsule p.o. daily. FAMILY HISTORY: Significant for father has diabetes, hypertension. Paternal grandfather with alcoholism. Maternal grandfather has diabetes, heart disorder. Maternal grandmother has diabetes. SOCIAL HISTORY: , no smoking, currently drinking alcohol one bottle of wine daily. No drug use. REVIEW OF SYSTEMS: As per HPI. Rest of the review of systems is negative. PHYSICAL EXAMINATION: GENERAL: The patient is of moderate build, not in acute distress. VITAL SIGNS: Temperature 37.1, pulse 84, respiratory rate 16, blood pressure 186/110, oxygen 91% on room air. HEENT: Pupils equal, round and reactive to light. Oral mucosa moist. NECK: No JVD, no neck masses. CARDIOVASCULAR: S1 and S2 heard. Regular rate and rhythm. No murmur, no gallop. RESPIRATORY SYSTEM: Normal AP diameter. No accessory muscle use. No wheezing, no crackles. ABDOMEN: Soft, bowel sounds present, nontender, no distention. CENTRAL NERVOUS SYSTEM: Cranial nerves II through XII are grossly intact, nonfocal. EXTREMITIES: No edema, no erythema. LABORATORY DATA: WBC 4.9, hemoglobin 16.2, hematocrit 45.9, platelets 280. Sodium 138, potassium 4.3, chloride 99, bicarb 20, BUN 14, creatinine 0.6, serum glucose 117, calcium 9, magnesium 2.3, total bilirubin 0.6, AST 26, ALT 21, alkaline phosphatase 59. TSH 0.7. Urinalysis, +1 ketones. Urine drug screen pending. Ethyl alcohol 251. SARS-CoV-2 rapid test negative. ASSESSMENT AND PLAN: This is a 57-year-old female who presents with alcoholism and request for detoxification. 1. Alcoholism: Drinking 1 bottle of wine every day since , in November and since then she is somewhat depressed. She used to drink in the past on and off, but since May, she is drinking regularly, wants to get help. We will place her on alcohol withdrawal protocol; gabapentin withdrawal protocol and IV Ativan p.r.n. received banana bag in the ER. Place on IV thiamine, IV folic acid, multivitamins. Closely monitor for withdrawal in the med tele. IV fluids for now. 2. Depression: Psychiatry consult. Continue bupropion. 3. Deep venous thrombosis prophylaxis: Lovenox. DISPOSITION: Closely monitor in the med tele. PT/OT prior to discharge. Social service to help with discharge planning. Job ID: [id number] [facility]
[2022-07-12] MEDS ORDERED: POLYETHYLENE (MIRALAX) 17 GM PACK PO PRN (23:14)
[2022-07-12] MEDS ORDERED: GABAPENTIN 1200MG ALCOHOL WITHDRAWAL LOAD PO STA (23:14)
[2022-07-12] MEDS ORDERED: NITROGLYCERIN SL 0.4 MG/TAB TAB SL PRN (23:14)
[2022-07-12] MEDS ORDERED: ONDANSETRON INJ 2 MG/ML 2 ML VIAL IV STA (23:28)
[2022-07-12] MEDS ORDERED: GABAPENTIN 600 MG TAB PO ONE (23:30)
[2022-07-12] MEDS: THIAMINE HCL 100 MG in SYRINGE 9 ML IV SCH (23:41)
[2022-07-12] MEDS: LORazepam 1 MG in SYRINGE 0 ML IV PRN (23:41)
[2022-07-12] MEDS: FOLIC ACID 1 MG in SYRINGE 9.8 ML IV SCH (23:41)
[2022-07-12] MEDS: D5W AND 1/2NSS 1,000 ML IV SCH (23:41)
[2022-07-13] MEDS: GABAPENTIN 600 MG TAB PO SCH ×3 (06:47→20:22)
[2022-07-13 07:38] LABS: Calcium 7.4 mg/dl (8.5-10.1); Creatinine Clr Calc Pharmacy 77.9 ml/min; Est GFR (African American) 111.8 ml/min; Est GFR (Non-African American) 96.4 ml/min; Potassium 3.8 mmol/L (3.5-5.1)
[2022-07-13 07:43] LABS: Basophils # (auto) 0.02 K/uL (0-0.2); Basophils % (auto) 0.4 %; Eosinophils # (auto) 0.06 K/uL (0-0.50); Eosinophils % (auto) 1.3 %; Hematocrit (blood only) 37.1 % (34.1-44.9); Hemoglobin 12.7 g/dl (12.0-16.0); Immature Granulocytes # (auto) 0.01 K/uL (0.00-0.02); Immature Granulocytes % (auto) 0.2 %; Lymphocytes # (auto) 1.74 K/uL (1.2-3.4); Mean Corpuscular Hemoglobin 30.7 pg (25.0-34.0); Mean Corpuscular Hgb Conc 34.2 g/dL (32.0-36.0); Mean Corpuscular Volume 89.6 fL (80.0-100.0); Mean Platelet Volume 10.7 fL (9.4-12.3); Monocytes # (auto) 0.18 K/uL (0.24-0.82); Neutrophils # (auto) 2.45 K/uL (1.4-6.5); Neutrophils % (auto) 55.1 %; Platelet Count 178 K/uL (130-400); RDW Coefficient of Variation 13.2 % (11.5-14.5); RDW Standard Deviation 43.3 fL (36.4-46.3); Red Blood Count 4.14 M/uL (3.93-5.22); White Blood Count 4.46 K/ul (4.8-10.8)
[2022-07-13] MEDS: ENOXAPARIN INJ 40 MG/0.4 ML SYR SQ SCH (08:04)
[2022-07-13] MEDS: FOLIC ACID 1 MG in SYRINGE 9.8 ML IV SCH (08:08)
[2022-07-13] MEDS: MULTIVITAMIN TAB PO SCH (08:08)
[2022-07-13] MEDS: THIAMINE HCL 100 MG in SYRINGE 9 ML IV SCH (08:08)
--- NOTE | 2022-07-13 08:45 | Electrocardiogram Report ---
Test Reason : Blood Pressure : / mmHG Vent. Rate : 084 BPM Atrial Rate : 084 BPM P-R Int : 158 ms QRS Dur : 082 ms QT Int : 416 ms P-R-T Axes : 051 047 075 degrees QTc Int : 491 ms Normal sinus rhythm Low voltage QRS Nondiagnostic inferior Q waves Minor Nonspecific T wave abnormality Anterior leads Abnormal ECG When compared with ECG of 24-MAY-2021 11:16, Nonspecific T wave abnormality now present Anterior leads Confirmed by Regino Avila ([id number]) on 07/13/2022 8:44:25 AM Referred By: REFERRED SELF Confirmed By:Regino Avila
[2022-07-13] MEDS ORDERED: buPROPion XL 150 MG TABCR PO SCH (09:00)
[2022-07-13] MEDS: D5W AND 1/2NSS 1,000 ML IV SCH (11:12)
--- NOTE | 2022-07-13 12:30 | Hospitalist Progress Note ---
Date of Service July 13, 2022 Assessment & Plan (1) Alcohol withdrawal: Plan 57-year-old lady with PMH of HLD, fatty liver, rectocele, alcohol abuse, generalized anxiety disorder, depression presents with alcoholism and with request for detoxification. Patient has used alcohol in the past on and off. After her in November, she was doing okay until around Thanksgiving time when she started drinking heavily, 1 bottle of wine every day. Last drink of alcohol on 07/11/2022 at around 1 PM per patient. She is being managed for the following: Alcohol use disorder Grief reaction versus worsening depression Patient started drinking heavily recently, her around November of this year. Patient has history of depression, patient came to the hospital for detoxification. Psychiatry consulted Alcohol withdrawal protocol on board, hemodynamically stable Continue to monitor over telemetry. Monitor and replete electrolytes Counseling provided regarding normal grief reaction. History of depression: Continue bupropion, psychiatry consulted DVT prophylaxis: Lovenox CODE STATUS: Full code Disposition: PT/OT, social service to help with DC planning and with outpatient alcoholic rehab resources. Admission and Anticipated Discharge Date Admission Date: July 12, 2022 Subjective Patient seen and examined at bedside as a follow-up of alcohol abuse, detoxification, grief reaction. Patient was lying in bed, on room air, NAD, reports no new acute event overnight, reports eating okay, reports moving bowels okay, reports sleeping very well overnight, denies any headache/dizziness/chest pain/palpitation/other review of symptoms. Of note, patient's last drink of alcohol was Monday at around 1 PM. Patient denies any history of withdrawal seizure in the past. Physical Exam Physical Exam: GENERAL: Alert and oriented x3. NAD, on RA. HEENT: No pallor, no icterus. Pupils equal, round and reactive to light. Oral mucosa moist. NECK: No JVD, no neck masses. HEART: S1 and S2 heard. Regular rate and rhythm. No murmur, no gallop. RESPIRATORY SYSTEM: Normal AP diameter. No accessory muscle use. No wheezing, no crackles. ABDOMEN: Soft, bowel sounds present, nontender, no distention. CENTRAL NERVOUS SYSTEM: No facial droop. Speech is clear. Obeys simple commands. Moves extremities. EXTREMITIES: No edema, no erythema seen. No hand tremors noted. Results & Data Results & Data ([facility]) Vital Signs (Past 12 Hours) Vital Signs Temp Pulse Pulse Resp BP BP Pulse Ox 07/13/22 11:16 36.5 C 88 20 133/81 93 07/13/22 07:35 07/13/22 06:07 76 07/13/22 07:49 36.5 C 67 18 110/70 95 07/13/22 06:45 36.8 C 84 18 107/69 92 07/13/22 04:00 36.8 C 82 18 107/69 93 07/13/22 02:00 36.7 C 91 H 18 112/73 97 O2 Del Method 07/13/22 11:16 Room Air 07/13/22 07:35 Room Air 07/13/22 06:07 07/13/22 07:49 Room Air 07/13/22 06:45 Room Air 07/13/22 04:00 Room Air 07/13/22 02:00 Room Air
--- NOTE | 2022-07-13 15:22 | Psychiatric Consultation ---
Date of Consultation July 13, 2022 Impression / Recommendations Impression 57 yo with a history of depression and alcohol use admitted medically. Diagnostically consistent with alcohol use disorder as well as unspecified depression likely a combination of substance-induced as well as MDD versus complicated breavement. Acute risk of self-harm is low given denial of SI. Chronic risk of harm to self and others is slightly increased due to substance use with substance use treatment being the most significant modifiable risk factor to reduce acute and chronic risk. They are not interested in residential treatment at this time but are willing to consider outpatient services to help with substance use and medication assisted treatment. Liver enzymes reviewed and stable for treatment with naltrexone and no concurrent opioids. (1) Alcohol use disorder: (2) Depression: Plan -Psychiatric liason will provide resources on local mental health services and substance use services and attempt to set them up with outpatient services if she decides she is interested in [facility] -Patient is not an imminent danger to self or others and does not meet criteria for involuntary psychiatric commitment -Continue AWSS as well as thiamine and folic acid -Consider starting naltrexone 50mg qd for alcohol use disorder, would recheck LFTs in 1 month to ensure they remain stable. -Consider restarting Wellbutrin XL 150mg qd in outpatient setting, once through withdrawal period, if desired for depression or could consider SSRI such as sertraline 50mg qd or escitalopram 10mg qd given hx of emotional blunting on Wellbutrin XL Psych History Identifying Data 57 yo woman with history of depression and alcohol use disorder admitted medically for alcohol withdrawal treatment. Psychiatry consulted to assess depression. Chief Complaint "Is that like the shot?". History of Present Illness Mana was admitted for help withdrawing from alcohol. She endorses history of depression, particularly after her in November with increased episodes of alcohol use over the past year including around resulting in a recent residential substance use treatment stay with increased use again since . has never been on MAT for alcohol use and interested in this. Denies SI. Has felt more depressed with less energy in the morning but also notes she feels she can experience more emotions since stopping Wellbutrin about one month ago. Further recent history per psych liason from 07/13/22: "Patient pleasant and talkative. She has a history of alcoholism was sober for ~ 1 year and began drinking again around . She has been to rehab in the past, most recently at end of April; she endorsed having a negative experience and is not interested in inpatient rehab at this time. She is open to D&A IOP and is requesting a grief counselor. Will provide some resources to patient for outpatient follow-up. Patient has been prescribed wellbutrin and self discontinued it ~ 1 month ago and felt it was masking her feelings. She does have questions regarding other medication options and is also interested in Naltrexone. Patient aware that psychiatrist will discuss medication recommendations with her. She reports in November, her mother 9 years ago and brother 5 years ago. Patient is overwhelmed by her husbands belongings and items that he has collected over the years. She would like to get her home "back in order". She feels she would benefit from somebody assisting her to decide what to keep or give away/discard. Suggested gathering all belongings to place into storage and overtime begin to go through items, patient receptive to this. Will continue to round and offer support as needed." Allergies Allergy/AdvReac Type Severity Reaction Status Date / Time amoxicillin Allergy Intermediate RASH/HIVES Verified 07/12/22 20:58 azithromycin AdvReac Mild Gastrointestinal Verified 07/12/22 20:58 Upset Home Medications Medication Instructions Recorded Confirmed Type lorazepam 0.5 mg tablet 0.5 mg PO HS PRN Anxiety 01/22/21 07/12/22 History multivitamin 1 tab PO DAILY 07/12/22 07/12/22 History Substance Abuse History see HPI Personal History Living Arrangements: Home Beliefs That Will Affect Care: None Patient History Medical History Anxiety and depression Chest pain HX DSE done October 2020- negative for ischemia but did show highly mobile mass/vegation on MV Chronic back pain NECK AND LOWER BACK-NECK FULL ROM Dyslipidemia Per records - PT NOT SURE Endocarditis 11/24/20 - culture negative endocarditis - tx'ed with six weeks IV abxs PER PT: SUSBSEQUENT TESTING PER DR HATFIELD - DIDN'T FEEL C/P WAS RELATED TO ENDOCARDITIS AND THAT IT WAS RELATED TO MVP. Mitral valve prolapse SUMMER [address] HATFIELD Scoliosis Surgical History History of blepharoplasty History of transesophageal echocardiography (ARTURO) Family History Brother Coronary heart disease Fatal [place] age 55 Diabetes Father Coronary heart disease Diabetes Hypertension Mother Coronary heart disease Social History Smoking Status: Unknown if ever smoked Second Hand Exposure: No; Do You Dip or Chew Tobacco: No; Tobacco Cessation Education Requested by Patient: No Hx Alcohol Use: Yes Alcohol type: wine Hx Substance Use: No Preferred Language: Sami Communication Ability: Effective Visual Impairment: No Limitations 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 Public Health Required: No Beliefs That Will Affect Care: None marital status: Current Living Situation: Family Current Living Situation Comment: SON LIVES DOWNSTAIRS current occupational status: retired Other Information That Helps Us Care for You: Yes (sober x1 year & started drinking again around ) Feels Safe at Home: Yes Safety Concerns: Feels Safe At This Time Assistive Devices: Glasses Physical Exam Psychiatric: Orientation: alert and oriented x 3 Apperance: appropriately dressed and appropriately groomed Eye Contact: good eye contact Motor Behavior: no abnormal motor movements Speech: normal rate/rhythm/volume of speech Affect: + constricted affect Mood: + depressed mood Thought Process: goal directed thought process Thought Content: reality based without delusions Suicidal Thoughts: denies suicidal thoughts Homicidal Thoughts: denies homicidal thoughts Hallucinations: no auditory hallucinations and no visual hallucinations Cognition: attention grossly intact and language grossly intact Estimated Intelligence: consistent with education level Insight: + limited insight Judgement: + limited judgement Vital Signs (Past 24 Hours): Last Vital Signs Temp 36.7 C 07/13/22 14:53 Pulse 75 07/13/22 14:53 Resp 19 07/13/22 14:53 BP 116/69 07/13/22 14:53 Pulse Ox 94 07/13/22 14:53 O2 Del Method 07/13/22 14:53 Review of Systems All systems reviewed & are unremarkable except as noted in HPI & below Results & Data (PSY) Laboratory Results LFTs normal, Na+ normal Medications Administered Enoxaparin Sodium (Enoxaparin Inj 40 Mg/0.4 Ml Syr) 40 mg SQ QAM KANIKA Stop: 08/12/22 08:59 Last Admin: 07/13/22 08:04 Dose: Not Given Documented By: YONATAN Dextrose/Sodium Chloride (D5w And 1/2nss) 1,000 mls @ 100 mls/hr IV .Q10H [facility] Stop: 07/13/22 19:44 Last Infusion: 07/13/22 12:51 Dose: 0 mls/hr Documented By: Admin: 07/13/22 11:12 Dose: 100 mls/hr Documented By: Infusion: 07/13/22 09:41 Dose: 100 mls/hr Documented By: Admin: 07/12/22 23:41 Dose: 100 mls/hr Documented By: RAMON Thiamine HCl 100 mg/ Syringe 10 mls [facility] Stop: 08/11/22 23:13 Last Admin: 07/13/22 08:08 Dose: 2 mls/min Documented By: Admin: 07/12/22 23:41 Dose: 2 mls/min Documented By: RAMON Folic Acid 1 mg/ Syringe 10 mls @ 5 mls/[facility] [place] Stop: 08/11/22 23:13 Last Admin: 07/13/22 08:08 Dose: 5 mls/min Documented By: Admin: 07/12/22 23:41 Dose: 5 mls/min Documented By: RAMON Lorazepam 1 mg/ Syringe 1 mls @ 2 mls/min IV UD PRN; Protocol PRN Reason: EtOH Withdrawal AWSS Score 6,7 Stop: 08/11/22 23:13 Last Admin: 07/12/22 23:41 Dose: 2 mls/min Documented By: RAMON Lorazepam 2 mg/ Syringe 2 mls @ 2 mls/min IV UD PRN; Protocol PRN Reason: EtOH Withdrawal AWSS Score 8,9 Stop: 08/11/22 23:13 Last Admin: 07/13/22 12:55 Dose: 2 mls/min Documented By: YONATAN Multivitamins (Multivitamin Tab) [facility] [place] Stop: 08/12/22 08:59 Last Admin: 07/13/22 08:08 Dose: 1 tab Documented By: YONATAN Coding Level of Care Code 12626 Inpt Consult Level 3 Diagnoses Alcohol use disorder F19.90 Depression F32.A
[2022-07-13] MEDS: LORazepam 1 MG in SYRINGE 0 ML IV PRN (22:47)
[2022-07-14] MEDS: GABAPENTIN 600 MG TAB PO SCH ×2 (03:28→11:38)
[2022-07-14 07:55] LABS: Hematocrit (blood only) 38.5 % (34.1-44.9); Hemoglobin 13.4 g/dl (12.0-16.0); Mean Corpuscular Hemoglobin 31.2 pg (25.0-34.0); Mean Corpuscular Hgb Conc 34.8 g/dL (32.0-36.0); Mean Corpuscular Volume 89.7 fL (80.0-100.0); Mean Platelet Volume 10.5 fL (9.4-12.3); Platelet Count 146 K/uL (130-400); RDW Standard Deviation 42.6 fL (36.4-46.3); Red Blood Count 4.29 M/uL (3.93-5.22); White Blood Count 3.42 K/ul (4.8-10.8)
[2022-07-14 07:57] LABS: BUN Creatinine Ratio 21.8 (10-20); Calcium 8.5 mg/dl (8.5-10.1); Creatinine Clr Calc Pharmacy 96.3 ml/min; Est GFR (African American) 119.8 ml/min; Est GFR (Non-African American) 103.4 ml/min; Phosphorus 3.5 mg/dl (2.5-4.9); Potassium 3.7 mmol/L (3.5-5.1)
[2022-07-14] MEDS: MULTIVITAMIN TAB PO SCH (09:35)
[2022-07-14] MEDS: ENOXAPARIN INJ 40 MG/0.4 ML SYR SQ SCH (09:36)
[2022-07-14] MEDS: FOLIC ACID 1 MG in SYRINGE 9.8 ML IV SCH (10:31)
[2022-07-14] MEDS: THIAMINE HCL 100 MG in SYRINGE 9 ML IV SCH (10:31)
--- NOTE | 2022-07-14 12:24 | Discharge Summary ---
Date of Service July 14, 2022 Admission HPI Per Admitting Provider CHIEF COMPLAINT: Alcoholism and detox request. HISTORY OF PRESENT ILLNESS: This is a 57-year-old female with past medical history significant for hyperlipidemia, fatty liver, history of rectocele, history of alcohol abuse, history of generalized anxiety disorder, depression, presents with alcoholism. The patient says she used to drink alcohol in the past on and off. Her in November and she was doing okay until Thanks when she missed him. Next day of Thanksgi, she felt like drinking alcohol again and she is drinking almost one bottle of wine every day. She has a daughter and son, who are in their 20s. She is not doing anything at home. She is sleeping all the time and not doing her dishes and other things. She felt like she has to be more responsible and she decided to come to the hospital for detox request. Hemodynamically stable. Does not have any tremors, alert and oriented. Denies any headache, no dizziness, no blurred visions, no earache, no runny nose, no sore throat. No cough. Appetite is okay. No difficulty swallowing. No recent significant weight gain or weight loss. No chest pain, no shortness of breath, no nausea, no abdominal pain. Normal bowel and bladder movements. No swelling in the legs, no rash. ALLERGIES: AMOXICILLIN, AZITHROMYCIN. PAST MEDICAL HISTORY: As mentioned above. PAST SURGICAL HISTORY: Dilatation and curettage, reduction of the breast. MEDICATIONS: The patient is on bupropion 150 mg p.o. daily, Ativan 0.5 mg p.o. p.r.n. for anxiety, multivitamin 1 capsule p.o. daily. FAMILY HISTORY: Significant for father has diabetes, hypertension. Paternal grandfather with alcoholism. Maternal grandfather has diabetes, heart disorder. Maternal grandmother has diabetes. SOCIAL HISTORY: , no smoking, currently drinking alcohol one bottle of wine daily. No drug use. REVIEW OF SYSTEMS: As per HPI. Rest of the review of systems is negative. Admission Exam Per Admitting Provider GENERAL: The patient is of moderate build, not in acute distress. VITAL SIGNS: Temperature 37.1, pulse 84, respiratory rate 16, blood pressure 186/110, oxygen 91% on room air. HEENT: Pupils equal, round and reactive to light. Oral mucosa moist. NECK: No JVD, no neck masses. CARDIOVASCULAR: S1 and S2 heard. Regular rate and rhythm. No murmur, no gallop. RESPIRATORY SYSTEM: Normal AP diameter. No accessory muscle use. No wheezing, no crackles. ABDOMEN: Soft, bowel sounds present, nontender, no distention. CENTRAL NERVOUS SYSTEM: Cranial nerves II through XII are grossly intact, nonfocal. EXTREMITIES: No edema, no erythema. Principal Diagnosis Alcohol use disorder Grief reaction versus worsening depression Discharge Exam GENERAL: Alert and oriented x3. NAD, on RA. HEENT: No pallor, no icterus. Pupils equal, round and reactive to light. Oral mucosa moist. NECK: No JVD, no neck masses. HEART: S1 and S2 heard. Regular rate and rhythm. No murmur, no gallop. RESPIRATORY SYSTEM: Normal AP diameter. No accessory muscle use. No wheezing, no crackles. ABDOMEN: Soft, bowel sounds present, nontender, no distention. CENTRAL NERVOUS SYSTEM: No facial droop. Speech is clear. Obeys simple commands. Moves extremities. EXTREMITIES: No edema, no erythema seen. No hand tremors noted. Discharge Data Allergies Allergy/AdvReac Type Severity Reaction Status Date / Time amoxicillin Allergy Intermediate RASH/HIVES Verified 07/12/22 20:58 azithromycin AdvReac Mild Gastrointestinal Verified 07/12/22 20:58 Upset Consultations 07/12/22 19:39 ED Decision to Admit Stat 07/12/22 23:14 Consult Psychiatry Routine Hospital Course (1) Alcohol withdrawal: Plan 57-year-old lady with PMH of HLD, fatty liver, rectocele, alcohol abuse, generalized anxiety disorder, depression presents with alcoholism and with request for detoxification. Patient has used alcohol in the past on and off. After her in November, she was doing okay until around gi time when she started drinking heavily, 1 bottle of wine every day. Last drink of alcohol on 07/11/2022 at around 1 PM per patient. She was managed for the following: Alcohol use disorder Grief reaction versus worsening depression Patient started drinking heavily recently, her around November of this year. Patient has history of depression, patient came to the hospital for detoxifi cation. Psychiatry evaluated, hold onto Wellbutrin until PCP evaluation as an outpatient/until overweight alcohol withdrawal. Patient made aware Alcohol withdrawal protocol on board, hemodynamically stable. Patient needed 3 mg of lorazepam yesterday, CIWA score has been below 10. Patient insisted to go home today, still within withdrawal period and there are risks of DTs or seizures but no such prior history per patient. Pt aware of it and wants to go home. Patient will be discharged on tapering dose of Librium and gabapentin, patient started on naltrexone with psychiatry recommendation. Counseling provided regarding normal grief reaction. Patient to follow-up with PCP in a week time upon discharge and maintain follow-up with her psychiatry and follow-up on alcohol cessation help resources provided by social work case manager/psychiatry liaison. History of depression: Patient to follow-up with PCP or her psychiatry as an outpatient for ongoing management. See above. CODE STATUS: Full code Patient being discharged to home with following instruction at the point of discharge: Follow-up with your primary care physician within 1 week time and likely you will need blood test CBC/CMP/magnesium/Phosphorous levels. Maintain follow-up with your psychiatry doctor as an outpatient. Follow-up on the resources provided by psychiatry liaison/social work case manager to you regarding alcohol cessation help. You will be discharged on gabapentin taper for 2 days, Librium taper for 2 days, naltrexone 50 mg daily. DONOT TAKE YOU HOME LORAZEPAM UNTIL YOU ARE DONE WITH LIBRIUM TAPERING DOSES. You can discuss with your primary care physician or your psychiatry as an outpatient regarding resuming your Wellbutrin as an outpatient after you are out of the alcohol withdrawal period. As discussed at the bedside, you will be at high risks of withdrawal until 5 days from your last drink but since you wanted to go home, please take your medications as prescribed. If with any signs of withdrawal/feeling sick/increasing tremors/sweaty/clammy/increasing anxiety/palpitations, contact emergency immediately. Take your medications as prescribed. Please make sure that you are able to get your medications today by calling your pharmacy before you leave the hospital so that your treatment continuity is not broken. Home Health Attestation I certify that this patient is under my care and that I, or a physicians custody assistant working with me, had a face to-face encounter that meets the home health [id number] encounter requirements with this patient. The encounter with the patient was in whole, or in part, for the following medical condition, which is the primary reason for home health care (list medical condition): I certify that, based on my findings, the following services are medically necessary home health services: My clinical findings support the need for the above services because: Further, I certify that my clinical findings support that this patient is homebound (i.e. absences from home require considerable and taxing effort and are for medical reasons or mandaen services or infrequently or of short duration when for other reasons) because: Certification for Home Health Services: Based on the above findings, I certify that this patient is confined to the home and needs intermittent nursing home care, physical therapy and/or speech therapy or continues to need occupational therapy. The patient is under my care, and I have initiated the establishment of the plan of care. This patient will be followed by a physician who will periodically review the plan of care. Total Time Total Time Spent Total Time Spent (In Minutes): 40 Discharge Plan Discharge Items Patient Disposition: Home - Self-Care Reason For Visit: DETOX REQUEST. ALCOHOLISM Discharge Diagnosis: Alcohol use disorder Grief reaction versus worsening depression Activity: Resume your previous activity Non-emergency contact: Primary Care Provider Call non-emergency contact if: you have any medication questions Follow-up/Referrals: Harsh Ram DO [Primary Care Provider] - (Date & Time 07/21/2022 2:00 PM Provider Angie Mccollum DO Department [facility] ) Diet: Heart Healthy Addtl Attending Provider Instructions: Follow-up with your primary care physician within 1 week time and likely you will need blood test CBC/CMP/magnesium/Phosphorous levels. Maintain follow-up with your psychiatry doctor as an outpatient. Follow-up on the resources provided by psychiatry liaison/social work case manager to you regarding alcohol cessation help. You will be discharged on gabapentin taper for 2 days, Librium taper for 2 days, naltrexone 50 mg daily. DONOT TAKE YOU HOME LORAZEPAM UNTIL YOU ARE DONE WITH LIBRIUM TAPERING DOSES. You can discuss with your primary care physician or your psychiatry as an outpatient regarding resuming your Wellbutrin as an outpatient after you are out of the alcohol withdrawal period. As discussed at the bedside, you will be at high risks of withdrawal until 5 days from your last drink but since you wanted to go home, please take your medications as prescribed. If with any signs of withdrawal/feeling sick/increasing tremors/sweaty/clammy/increasing anxiety/palpitations, contact emergency immediately. Take your medications as prescribed. Please make sure that you are able to get your medications today by calling your pharmacy before you leave the hospital so that your treatment continuity is not broken. Pending Studies at Discharge: No Stand-Alone Forms: My [facility], Smoking Cessation Medications and DC Order Prescriptions: New gabapentin 600 mg Tablet See Rx Instructions .ROUTE .COMPLEX 2 Days Qty: 3 0RF Rx Instructions: take 600 mg twice a day starting 12/15 evening; then third dose on 07/16 morning. naltrexone 50 mg Tablet 50 mg PO DAILY Qty: 30 0RF thiamine HCl (vitamin B1) 100 mg tablet 100 mg PO DAILY Qty: 30 0RF folic acid 1 mg tablet 1,000 mcg PO DAILY Qty: 30 0RF chlordiazepoxide HCl 25 mg capsule See Rx Instructions .ROUTE .COMPLEX 2 Days Qty: 3 0RF Rx Instructions: 25 mg orally -- take one tab 12 evening, another 07/15 morning and third tab on 07/16 morning. Continued lorazepam 0.5 mg Tablet 0.5 mg PO HS PRN (Reason: Anxiety) multivitamin Tablet 1 tab PO DAILY Discharge Orders: Discharge Order (Routine); Ordered 07/14/22 Ordered By: Maci Godwin Admission Data Admit Date/Time: 07/12/22 20:43 Attending Provider: Maci Godwin Admit Provider: Bonifacio Mendoza Primary Care Provider: Harsh Ram Other Providers: Bonifacio Mendoza ; Iliana Fournier ; Mansi Boogie
[2022-07-14] MEDS ORDERED: GABAPENTIN 600 MG TAB PO SCH (22:00)
[2022-07-15] MEDS ORDERED: NALTREXONE HCL 50 MG TAB PO SCH (09:00)
[2022-07-16] MEDS ORDERED: GABAPENTIN 600 MG TAB PO SCH (10:00)
== END 2022-07-14 14:09 | disposition home or self-care (01) | DRG 897 ==
LOC: ED 15:32 → 2W 20:43 → SUATTDRO 20:43 → 2W 22:59

== ENCOUNTER 2022-08-26 10:23 | Inpatient (IN) ==
[2022-08-26] MEDS ORDERED: PANTOprazole 80 MG in DEXTROSE 5% 100 ML IV STA (10:33)
[2022-08-26] MEDS ORDERED: MULTI-VITAMIN INFUSION 10 ML, THIAMINE HCL 100 MG, FOLIC ACID 1 MG in SODIUM CHLORIDE 0... IV ONE (10:33)
[2022-08-26] MEDS ORDERED: LORazepam 2 MG/1 ML VIAL IV STA ×2 (10:33→12:22)
--- NOTE | 2022-08-26 10:44 | Emergency Department Note ---
Impression & Plan Alcohol intoxication, Acute dehydration, Lactic acidosis ED Provider Note Name: LESLIE HANSEN Age: 57 Sex: F Arrives Via: Ambulance Informant: Patient, EMS ED Provider: Elijah Vásquez MD Chief Complaint: Illness Impression: As per impressions above Medical Decision Makin-year-old female known to this facility for previous encounters for alcohol intoxication. She arrives due to worsening illness. Patient on evaluation is intoxicated smells heavily of alcohol is mildly tachycardic and is dehydrated appearing. Patient admits that she relapsed about a week ago following a trip back from [place]. She has mild epigastric discomfort and nausea. Given he r previous history of duodenal ulcer she was given some IV Protonix along with IV Ativan for the nausea and mild shaking. She has not had seizures and just has mild tremor and it was felt Ativan would help with the nausea as well. She was given 1 L banana bag as well as a normal saline bolus. Her initial labs included a lactic acid given her severe alcohol history. Lactic acid is elevated. She was hydrated to the point where she was urinating several times including urinating on herself. Patient's electrolytes are not overly concerning other than consistent being with intoxicated. Alcohol level is 250. Patient noted some continued nausea and thus another dose of Ativan. Patient monitored in the ER over several hours of IV fluids were initiated. Her initial lactate was quite high so a repeat was ordered. Unfortunately there is some issues with the lab and it took some time for second lactate to return still elevated but improved from previous. Patient does not have any sign ificant abdominal pain nor tenderness palpation. I not feel that CT imaging of the abdomen pelvis would be indicated at this time. While the patient's been here she has developed some diarrhea. I am suspicious that the lactate is primarily due to dehydration. I do not feel she is septic at this time. She has no fever nor significant white blood cell count elevation. Her symptoms are likely secondary to her alcohol intoxication and dehydration. In the setting of continued tachycardia and elevated lactic acid despite initial treatments in the ER I feel that hospitalization is now at this point indicated. Hospitalist consulted for further management. Prior Medical Record and Triage/Nursing Notes reviewed by Me Chart review by me included review of hospitalization records from June 2022 for alcoholism. It also included review of her outpatient plastic surgery evaluations this month. Differentials:Alcohol intoxication, withdrawal, mental health crisis, gastritis, peptic ulcer disease, failure, pancreatitis, electrolyte imbalance many other pathologies considered Vital Signs: reviewed and remarkable for tachy Interventions: Banana bag 1 L IV, normal saline bolus 1 L IV, Ativan 1 mg IV x2 Labs:Reviewed and remarkable for elevated lactic acid, elevated alcohol level Cardiac/Tele Monitoring: Cardiac Monitoring: An Order was placed for continuous cardiac monitoring. The monitor shows a rate of 110 with a sinus tach rhythm. Plan: Disposition:Hospitalization Referred to: PCP Condition: Good History of Present Illness:49-year-old female arrives for evaluation of alcohol intoxication. Patient states she is an alcoholic and relapsed about a week ago after going through an airport on the way home. She notes that she has been drinking heavily since then. This morning she states she wishes to go to rehab and that she is now withdrawing from the alcohol. She does admit that she was drinking vodka up until coming to the ER. Mild associated nausea and epigastric discomfort. No fevers, chills, shortness of breath, syncope, headaches, neck pain, back pain, lower abdominal pain, black or bloody stools, leg swelling, rashes or other concerning signs or symptoms. No medications prior to arrival. Patient states she has been admitted many times before to get her electrolytes back to normal. Patient believes she needs to be admitted for her alcohol withdrawal. Past History:See Below Home Medications:Not Taking Allergies:amox, azithro Vitals:Blood Pressure: 140/80, Pulse 90, RR 16, T 37.0C, O2 98% on RA Physical Exam: GENERAL: Patient is intoxicated appearing and in minimal distress. Smells of alcohol EYES: No scleral icterus, unremarkable pupils. ENT: Mucous membranes moist, no nasal congestion. NECK: No masses appreciated, nomeningismus, trachea is midline. RESPIRATORY: No dyspnea. Clear to auscultation and equal bilaterally. No wheeze, no rhonchi. CARDIOVASCULAR: Regular rate and rhythm.No murmurs, rubs, gallops appreciated. GASTROINTESTINAL: Abdomen soft, non-tender, no peritonitis.Bowel sounds positive.No masses appreciated. EXTREMITIES: Normal motion all extremities, no cyanosis, no edema. NEUROLOGIC: Alert and oriented, intoxicated, no focal weakness SKIN: No rash, no jaundice, no diaphoresis. Sunburn on arms PSYCH: Appropriate though irritated with questions GCS: 15 ED Course: Times/Reassessments: Repeat evaluations patient appears well she is in no distress and she is breathing comfortably. She is just mildly tachycardic but not having any evidence of DTs. Elijah Vásquez MD Past Med/Surg History Medical History Alcohol use disorder Anxiety and depression Chest pain HX DSE done October 2020- negative for ischemia but did show highly mobile mass/vegation on MV Chronic back pain NECK AND LOWER BACK-NECK FULL ROM Dyslipidemia Per records - PT NOT SURE Endocarditis 11/24/20 - culture negative endocarditis - tx'ed with six weeks IV abxs PER PT: SUSBSEQUENT TESTING PER DR HATFIELD - DIDN'T FEEL C/P WAS RELATED TO ENDOCARDITIS AND THAT IT WAS RELATED TO MVP. Mitral valve prolapse SUMMER [address] HATFIELD Scoliosis Surgical History History of blepharoplasty History of transesophageal echocardiography (ARTURO) Family History Brother Coronary heart disease Fatal [place] age 55 Diabetes Father Coronary heart disease Diabetes Hypertension Mother Coronary heart disease Social History Smoking Status: Never smoker Second Hand Exposure: No; Hx Alcohol Use: Yes Alcohol type: wine and hard liquor Hx Substance Use: No Preferred Language: [place]er Communication Ability: Effective Visual Impairment: No Limitations 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: Normal Software Consultant Required: No Beliefs That Will Affect Care: None marital status: Current Living Situation: Family Current Living Situation Comment: SON LIVES DOWNSTAIRS current occupational status: retired Other Information That Helps Us Care for You: No Feels Safe at Home: Yes Safety Concerns: Feels Safe At This Time Assistive Devices: Glasses Allergies Allergies Allergy/AdvReac Type Severity Reaction Status Date / Time amoxicillin Allergy Intermediate RASH/HIVES Verified 08/26/22 15:20 azithromycin AdvReac Mild Gastrointestinal Verified 08/26/22 15:20 Upset Home Meds Home Medications Medication Instructions Recorded Confirmed lorazepam 0.5 mg tablet 0.25 - 0.5 mg PO HS PRN Anxiety 01/22/21 08/26/22 multivitamin 1 tab PO DAILY 07/12/22 08/26/22 trazodone 50 mg tablet 25 - 50 mg PO HS PRN Sleep 08/26/22 08/26/22 Previous Rx's Medication Instructions Recorded folic acid 1 mg tablet 1,000 mcg PO DAILY #30 tabs 07/14/22 thiamine HCl (vitamin B1) 100 mg 100 mg PO DAILY #30 tabs 07/14/22 tablet Results & Data (ED) Vital Signs Vital Signs - 24 hr 08/26/22 10:14 08/26/22 12:31 08/26/22 15:02 Temperature 36.9 C Temperature Source Oral Pulse Rate 93 H Pulse Rate [Right Finger] 95 H 107 H Pulse Rhythm Regular Pulse Rhythm [Right Finger] Regular Regular Pulse Strength Normal Pulse Strength [Right Finger] Normal Normal Respiratory Rate 16 20 20 Respiratory Effort / Characteristics Non-Labored Non-Labored Non-Labored Respiratory Depth Normal Normal Normal Respiratory Pattern Regular Regular Blood Pressure 123/65 Blood Pressure [Right Arm] 108/59 L 124/85 Blood Pressure Mean 84 Blood Pressure Mean [Right Arm] 75 98 Pulse Oximetry 93 95 95 Oxygen Delivery Method Room Air Room Air Room Air Sepsis Recent Fever Within 48 Hours No Sepsis New/Unexplained Change in Mental Status N/A Sepsis Action Taken by Nursing No Action Required Laboratory Data 08/26/22 10:55 08/26/22 10:55 Lab Results 08/26/22 08/26/22 08/26/22 Range/Units 10:55 10:55 10:55 WBC 11.85 H (4.8-10.8) K/ul RBC 5.10 (4.20-5.40) M/uL Hgb 15.9 (12.0-16.0) g/dl Hct 46.0 (37.0-47.0) % MCV 90.2 (80.0-100.0) fL MCH 31.2 (25.0-34.0) pg MCHC 34.6 (32.0-36.0) g/dL RDW Std Deviation 42.8 (36.4-46.3) fL RDW Coeff of Diamond 12.9 (11.5-14.5) % Plt Count 252 (130-400) K/uL MPV 10.2 (9.4-12.4) fL Immature Gran % (Auto) 0.4 % Neut % (Auto) 86.4 % Lymph % (Auto) 11.8 % [place] % (Auto) 1.0 % Eos % (Auto) 0.0 % Baso % (Auto) 0.4 % Neut # (Auto) 10.23 H (1.40-6.50) K/uL Lymph # (Auto) 1.40 (1.2-3.4) K/uL [place] # (Auto) 0.12 (0.11-0.59) K/uL Eos # (Auto) 0.00 (0-0.50) K/uL Baso # (Auto) 0.05 (0-0.2) K/uL Immature Gran # (Auto) 0.05 (0.01-0.20) K/uL Sodium 140 (136-145) mmol/L Potassium 4.0 (3.5-5.1) mmol/L Chloride 96 L (98-107) mmol/L Carbon Dioxide 18 L (21-32) mmol/L Anion Gap 26 H (3-11) BUN 20 (6-23) mg/dl Creatinine 0.65 (0.6-1.2) mg/dl Est Cr Clr Drug Dosing 89.6 ml/min Est GFR ( Amer) 113.4 ml/min Est GFR (Non-Af Amer) 97.9 ml/min BUN/Creatinine Ratio 30.8 H (10-20) Glucose 77 (70-99(Fasting)) mg/dl Lactate (0.4-2.0) mmol/L Calcium 9.1 (8.5-10.1) mg/dl Magnesium 1.8 (1.7-2.4) mg/dl Total Bilirubin 0.7 (0.2-1.0) mg/dl Direct Bilirubin 0.1 (0-0.2) mg/dl AST 46 H (13-39) U/L ALT 36 (7-52) U/L Alkaline Phosphatase 56 (34-104) U/L Troponin I High Sens 5.3 (0-14) pg/ml Total Protein 7.2 (6.0-8.3) gm/dl Albumin 5.0 (3.4-5.0) gm/dl Lipase 7 L (11-82) U/L Ethyl Alcohol mg/dL (<10.0) mg/dl SARS-CoV-2, RNA, NAAT (NEGATIVE) 08/26/22 08/26/22 08/26/22 Range/Units 11:33 14:27 15:50 WBC (4.8-10.8) K/ul RBC (4.20-5.40) M/uL Hgb (12.0-16.0) g/dl Hct (37.0-47.0) % MCV (80.0-100.0) fL MCH (25.0-34.0) pg MCHC (32.0-36.0) g/dL RDW Std Deviation (36.4-46.3) fL RDW Coeff of Diamond (11.5-14.5) % Plt Count (130-400) K/uL MPV (9.4-12.4) fL Immature Gran % (Auto) % Neut % (Auto) % Lymph % (Auto) % [place] % (Auto) % Eos % (Auto) % Baso % (Auto) % Neut # (Auto) (1.40-6.50) K/uL Lymph # (Auto) (1.2-3.4) K/uL [place] # (Auto) (0.11-0.59) K/uL Eos # (Auto) (0-0.50) K/uL Baso # (Auto) (0-0.2) K/uL Immature Gran # (Auto) (0.01-0.20) K/uL Sodium (136-145) mmol/L Potassium (3.5-5.1) mmol/L Chloride (98-107) mmol/L Carbon Dioxide (21-32) mmol/L Anion Gap (3-11) BUN (6-23) mg/dl Creatinine (0.6-1.2) mg/dl Est Cr Clr Drug Dosing ml/min Est GFR ( Amer) ml/min Est GFR (Non-Af Amer) ml/min BUN/Creatinine Ratio (10-20) Glucose (70-99(Fasting)) mg/dl Lactate 5.9 H* (0.4-2.0) mmol/L Calcium (8.5-10.1) mg/dl Magnesium (1.7-2.4) mg/dl Total Bilirubin (0.2-1.0) mg/dl Direct Bilirubin (0-0.2) mg/dl AST (13-39) U/L ALT (7-52) U/L Alkaline Phosphatase (34-104) U/L Troponin I High Sens (0-14) pg/ml Total Protein (6.0-8.3) gm/dl Albumin (3.4-5.0) gm/dl Lipase (11-82) U/L Ethyl Alcohol mg/dL 252.8 H (<10.0) mg/dl SARS-CoV-2, RNA, NAAT NEGATIVE (NEGATIVE) 08/26/22 08/26/22 Range/Units 16:29 16:30 WBC (4.8-10.8) K/ul RBC (4.20-5.40) M/uL Hgb (12.0-16.0) g/dl Hct (37.0-47.0) % MCV (80.0-100.0) fL MCH (25.0-34.0) pg MCHC (32.0-36.0) g/dL RDW Std Deviation (36.4-46.3) fL RDW Coeff of Diamond (11.5-14.5) % Plt Count (130-400) K/uL MPV (9.4-12.4) fL Immature Gran % (Auto) % Neut % (Auto) % Lymph % (Auto) % [place] % (Auto) % Eos % (Auto) % Baso % (Auto) % Neut # (Auto) (1.40-6.50) K/uL Lymph # (Auto) (1.2-3.4) K/uL [place] # (Auto) (0.11-0.59) K/uL Eos # (Auto) (0-0.50) K/uL Baso # (Auto) (0-0.2) K/uL Immature Gran # (Auto) (0.01-0.20) K/uL Sodium 138 (136-145) mmol/L Potassium 4.1 (3.5-5.1) mmol/L Chloride 106 (98-107) mmol/L Carbon Dioxide 16 L (21-32) mmol/L Anion Gap 16 H (3-11) BUN 13 (6-23) mg/dl Creatinine 0.47 L (0.6-1.2) mg/dl Est Cr Clr Drug Dosing 123.9 ml/min Est GFR ( Amer) 126.2 ml/min Est GFR (Non-Af Amer) 108.9 ml/min BUN/Creatinine Ratio 27.7 H (10-20) Glucose 122 H (70-99(Fasting)) mg/dl Lactate 5.0 H* (0.4-2.0) mmol/L Calcium 7.3 L (8.5-10.1) mg/dl Magnesium (1.7-2.4) mg/dl Total Bilirubin (0.2-1.0) mg/dl Direct Bilirubin (0-0.2) mg/dl AST (13-39) U/L ALT (7-52) U/L Alkaline Phosphatase (34-104) U/L Troponin I High Sens (0-14) pg/ml Total Protein (6.0-8.3) gm/dl Albumin (3.4-5.0) gm/dl Lipase (11-82) U/L Ethyl Alcohol mg/dL (<10.0) mg/dl SARS-CoV-2, RNA, NAAT (NEGATIVE) Administered Medications Gabapentin (Gabapentin 600 Mg Tab) 600 mg PO Q6H KANIKA Stop: 08/27/22 12:01 Last Admin: 08/27/22 05:05 Dose: 600 mg Documented By: ANNIKA Ciprofloxacin (Cipro / D5w) 400 mg in 200 mls @ 100 mls/hr IV Q12H KANIKA; Protocol Stop: 09/05/22 19:59 Last Infusion: 08/27/22 00:55 Dose: 0 mls/hr Documented By: Admin: 08/26/22 22:54 Dose: 100 mls/hr Documented By: SUGAR Metronidazole (Flagyl) 500 mg in 100 mls @ 100 mls/hr IV Q8H KANIKA Stop: 09/05/22 19:59 Last Infusion: 08/27/22 04:26 Dose: 0 mls/hr Documented By: Admin: 08/27/22 03:24 Dose: 100 mls/hr Documented By: Infusion: 08/26/22 22:54 Dose: 0 mls/hr Documented By: Admin: 08/26/22 21:09 Dose: 100 mls/hr Documented By: SUGAR Lorazepam (Lorazepam 2 Mg/1 Ml Vial) 1 mg IV UD PRN; Protocol PRN Reason: EtOH Withdrawal AWSS Score 6,7 Stop: 09/25/22 19:24 Last Admin: 08/26/22 20:11 Dose: 1 mg Documented By: SUGAR Discontinued Medications Gabapentin (Gabapentin 600 Mg Tab) 1,200 mg PO NOW ONE Stop: 08/26/22 19:31 Last Admin: 08/26/22 21:10 Dose: 1,200 mg Documented By: SUGAR Pantoprazole Sodium 80 mg/ (Dextrose) 100 mls @ 400 mls/hr IV ONE STA Stop: 08/26/22 10:47 Last Infusion: 08/26/22 13:29 Dose: 0 mls/hr Documented By: Admin: 08/26/22 11:35 Dose: 400 mls/hr Documented By: AJITHK Multivitamins 10 ml/ Thiamine HCl 100 mg/ Folic Acid 1 mg/Sodium Chloride 1,011.2 mls @ 1,011.2 mls/hr IV .Q1H ONE Stop: 08/26/22 11:32 Last Infusion: 08/26/22 13:29 Dose: 0 mls/hr Documented By: Admin: 08/26/22 11:37 Dose: 1,011.2 mls/hr Documented By: CGK Sodium Chloride (Nss 1000ml) 1,000 mls @ 999 mls/hr IV .Q1H1M ONE Stop: 08/26/22 13:22 Last Infusion: 08/26/22 13:30 Dose: 0 mls/hr Documented By: Admin: 08/26/22 12:32 Dose: 999 mls/hr Documented By: CGK Sodium Chloride (Nss 1000ml) 1,000 mls @ 999 mls/hr IV .Q1H1M ONE Stop: 08/26/22 16:29 Last Infusion: 08/26/22 21:45 Dose: 0 mls/hr Documented By: Admin: 08/26/22 15:37 Dose: 999 mls/hr Documented By: CGK Lactated Ringer's (Lr) 1,000 mls @ 250 mls/hr IV .Q4H ONE Stop: 08/27/22 01:25 Last Infusion: 08/27/22 01:32 Dose: 0 mls/hr Documented By: DPVane Infusion: 08/27/22 01:06 Dose: 250 mls/hr Documented By: Infusion: 08/26/22 21:59 Dose: 0 mls/hr Documented By: Admin: 08/26/22 21:59 Dose: 250 mls/hr Documented By: SUGAR Ioversol (Optiray 350 100ml) 84 ml IV ONCE ONE Stop: 08/26/22 18:39 Last Admin: 08/26/22 18:39 Dose: 84 ml Documented By: WILLAM Lorazepam (Lorazepam 2 Mg/1 Ml Vial) 1 mg IV NOW STA Stop: 08/26/22 10:34 Last Admin: 08/26/22 10:55 Dose: 1 mg Documented By: ROHAN Lorazepam (Lorazepam 2 Mg/1 Ml Vial) 1 mg IV NOW STA Stop: 08/26/22 12:23 Last Admin: 08/26/22 12:30 Dose: 1 mg Documented By: ROHAN Discharge Plan Visit Data Chief Complaint: Illness Stated Complaint: ILLNESS ED Provider: Elijah Vásquez Discharge Problem: Alcohol intoxication, Acute dehydration, Lactic acidosis Patient Disposition: Admitted As Inpatient Condition: Good Discharge Instructions Interventions: ED Discharge Assessment Last Done: 08/26/22 18:23 : Alcohol intoxication Qualifiers: Complication of substance-induced condition: uncomplicated Qualified Code(s): F10.920 - Alcohol use, unspecified with intoxication, uncomplicated
[2022-08-26 11:08] LABS: Basophils # (auto) 0.05 K/uL (0-0.2); Basophils % (auto) 0.4 %; Hemoglobin 15.9 g/dl (12.0-16.0); Immature Granulocytes # (auto) 0.05 K/uL (0.01-0.20); Immature Granulocytes % (auto) 0.4 %; Lymphocytes % (auto) 11.8 %; Mean Corpuscular Hemoglobin 31.2 pg (25.0-34.0); Mean Corpuscular Hgb Conc 34.6 g/dL (32.0-36.0); Mean Corpuscular Volume 90.2 fL (80.0-100.0); Mean Platelet Volume 10.2 fL (9.4-12.4); Monocytes # (auto) 0.12 K/uL (0.11-0.59); Neutrophils # (auto) 10.23 K/uL (1.40-6.50); Neutrophils % (auto) 86.4 %; Platelet Count 252 K/uL (130-400); RDW Coefficient of Variation 12.9 % (11.5-14.5); RDW Standard Deviation 42.8 fL (36.4-46.3); White Blood Count 11.85 K/ul (4.8-10.8)
[2022-08-26 11:38] LABS: Troponin I High Sensitivity 5.3 pg/ml (0-14)
[2022-08-26 11:57] LABS: Bilirubin Direct 0.1 mg/dl (0-0.2); Bilirubin,Total 0.7 mg/dl (0.2-1.0); Calcium 9.1 mg/dl (8.5-10.1); Magnesium 1.8 mg/dl (1.7-2.4)
[2022-08-26 12:04] LABS: BUN Creatinine Ratio 30.8 (10-20); Creatinine Clr Calc Pharmacy 89.6 ml/min; Est GFR (African American) 113.4 ml/min; Est GFR (Non-African American) 97.9 ml/min; Total Protein 7.2 gm/dl (6.0-8.3)
[2022-08-26] MEDS ORDERED: SODIUM CHLORIDE 0.9% 1000ML 1,000 ML IV ONE ×2 (12:22→15:29)
--- NOTE | 2022-08-26 16:25 | History & Physical Report ---
Date of Service August 26, 2022 Assessment & Plan (1) Alcohol intoxication: Plan: Patient is 57 y/o F with PMH anxiety, depression, alcohol abuse presented to ER with c/o wanting help with alcohol detox. Drinking half bottle of vodka daily for the past 9 days. Last drink reported 6 AM this morning. Patient reports feels shaky upon ER arrival In ER given banana bag, total 2 mg Ativan IV Alcohol withdrawal protocol with gabapentin, Ativan as needed Currently patient states not interested in rehab Continue multivitamin, thiamine, folic acid supplement CBC, BMP, magnesium, phosphorus labs in a.m. (2) Colitis: (3) Vomiting and diarrhea: Plan: Reported N/V/D x 1 day. 10 episodes vomiting, 5 episodes loose diarrhea. Recent travel. Denies ill contacts CT Abd/pelvis: Mild diffuse colonic wall thickening with possible pericolonic stranding. In addition, mild wall thickening of several distal ileal loops. Although this could be due to underdistention, the findings raise the possibility of a nonspecific enterocolitis. No bowel obstruction. Hepatic steatosis. Colonic diverticulosis without evidence for acute diverticulitis. In ER given Protonix IV Stool studies, c-diff pending Continue Protonix IV daily Clear liquid diet as tolerated Flagyl, Cipro CBC, BMP in am (4) Lactic acidosis: Plan: Lactic acid: 5.9 --> 5.0. WBC: 11.5 In ER given 2 L NSS UA pending CT Abd/pelvis: Mild diffuse colonic wall thickening with possible pericolonic stranding. In addition, mild wall thickening of several distal ileal loops. Although this could be due to underdistention, the findings raise the possibility of a nonspecific enterocolitis. No bowel obstruction. Hepatic steatosis. Colonic diverticulosis without evidence for acute diverticulitis. Trend lactic acid May be secondary to dehydration, alcoholism Treating for colitis as above (5) Anxiety and depression: Plan: Continue trazodone prn Follows with psychiatry, Jose Palacios DVT Prophylaxis SCDs Full Code as per discussion with pt Pt was seen and care coordinated with Dr Nicholson. See addendum I spent a total of 78 minutes reviewing notes, outpatient records, labs, medication, coordinating, documenting and providing care for this patient excluding time spent in the performance of separately billed services. History of Present Illness Chief Complaint: Alcohol detox Primary Care Provider: Harsh Ram DO Patient is 57 y/o F with PMH anxiety, depression, alcohol abuse presented to ER with c/o wanting help with alcohol detox. Patient with history of alcoholism in past. Reports been in rehab in the past. Patient reports last alcohol use was in June 2022 with requiring hospitalization for alcohol detox. Patient states did not go to rehab at that time. She reports was doing well and was not drinking alcohol. Patient states went on vacation to [place] for 5 days. Returned on 08/17/2022. Reports while on vacation did not have any alcoholic drinks. On the way home on 08/17/2022 was in the airport with flight delays so she decided she would have a couple of mixed drinks. She has since been drinking half a bottle of vodka daily. Patient states her last year. This was her first vacation without him and she feels like this caused grief. She does admit that she has been having difficulty with the grieving process. Patient states yesterday started with nausea and vomiting. Reports 10 episodes of vomiting. Reports at least 5 episodes of watery diarrhea. Denies abdominal pain today. Does report some abdominal bloating intermittently after eating. Today felt chills. Has not taken her temperature. She states has had intermittent dry cough that she didn't notice but her son pointed out to her. Denies history DT's or seizures. Denies diaphoresis, hematemesis, melena, ANAYA, dizziness, syncope, vision changes, neck pain, CP, SOB, orthopnea, palpitations, sore throat, choking, otalgia, rhinorrhea, paresthesias, weakness, extremity weakness, extremity edema, rashes, urinary symptoms. Allergies Allergy/AdvReac Type Severity Reaction Status Date / Time amoxicillin Allergy Intermediate RASH/HIVES Verified 08/26/22 15:20 azithromycin AdvReac Mild Gastrointestinal Verified 08/26/22 15:20 Upset Home Medications Medication Instructions Recorded Confirmed Type lorazepam 0.5 mg tablet 0.25 - 0.5 mg PO HS PRN Anxiety 01/22/21 08/26/22 History multivitamin 1 tab PO DAILY 07/12/22 08/26/22 History folic acid 1 mg tablet 1,000 mcg PO DAILY #30 tabs 07/14/22 08/26/22 Rx thiamine HCl (vitamin B1) 100 mg 100 mg PO DAILY #30 tabs 07/14/22 08/26/22 Rx tablet trazodone 50 mg tablet 25 - 50 mg PO HS PRN Sleep 08/26/22 08/26/22 History Past Med/Surg History Medical History Alcohol use disorder Anxiety and depression Chest pain HX DSE done October 2020- negative for ischemia but did show highly mobile m ass/vegation on MV Chronic back pain NECK AND LOWER BACK-NECK FULL ROM Dyslipidemia Per records - PT NOT SURE Endocarditis 11/24/20 - culture negative endocarditis - tx'ed with six weeks IV abxs PER PT: SUSBSEQUENT TESTING PER DR HATFIELD - DIDN'T FEEL C/P WAS RELATED TO ENDOCARDITIS AND THAT IT WAS RELATED TO MVP. Mitral valve prolapse SUMMER [address] HATFIELD Scoliosis Surgical History History of blepharoplasty History of transesophageal echocardiography (ARTURO) Family History Brother Coronary heart disease Fatal MA age 55 Diabetes Father Coronary heart disease Diabetes Hypertension Mother Coronary heart disease Social History Smoking Status: Never smoker Second Hand Exposure: No; Hx Alcohol Use: Yes Alcohol type: wine and hard liquor Hx Substance Use: No Preferred Language: Khmer Communication Ability: Effective Visual Impairment: No Limitations 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: Normal Fitness And Wellness Director Required: No Beliefs That Will Affect Care: None marital status: Current Living Situation: Family Current Living Situation Comment: SON LIVES DOWNSTAIRS current occupational status: retired Other Information That Helps Us Care for You: No Feels Safe at Home: Yes Safety Concerns: Feels Safe At This Time Assistive Devices: Glasses Review of Systems Review of Systems: All systems reviewed & are unremarkable except as noted in HPI & below Physical Exam Physical Exam: General: no distress, WDWN Head: normocephalic, atraumatic Eyes: PERRL, EOM's intact, conjunctiva non-injected, anicteric ENT: normal inspection external ears, nose, mucous membranes moist, +alcohol odor Neck: supple, trachea midline Lungs: clear, no respiratory distress, no wheezing/rhonchi/rales CV: RRR, no murmur, no pretibial edema Abd: normal BS, soft, non-tender to palpation Ext: no cyanosis, no calf tenderness Neuro: A&O x 3, no focal deficits noted, normal affect Skin: warm, dry Results & Data Results & Data ([facility]) Vital Signs (Past 12 Hours) Vital Signs Temp Pulse Pulse Resp BP BP Pulse Ox 08/26/22 15:02 107 H 20 124/85 95 08/26/22 12:31 95 H 20 108/59 L 95 08/26/22 10:14 36.9 C 93 H 16 123/65 93 O2 Del Method 08/26/22 15:02 Room Air 08/26/22 12:31 Room Air 08/26/22 10:14 Room Air Laboratory Results Short CBC 08/26/22 Range/Units 10:55 WBC 11.85 H (4.8-10.8) K/ul Hgb 15.9 (12.0-16.0) g/dl Hct 46.0 (37.0-47.0) % Plt Count 252 (130-400) K/uL BMP 08/26/22 08/26/22 10:55 16:30 Sodium 140 138 Potassium 4.0 4.1 Chloride 96 L 106 Carbon Dioxide 18 L 16 L BUN 20 Creatinine 0.65 Glucose 77 Calcium 9.1 7.3 L Liver Function 08/26/22 Range/Units 10:55 Total Bilirubin 0.7 (0.2-1.0) mg/dl Direct Bilirubin 0.1 (0-0.2) mg/dl AST 46 H (13-39) U/L ALT 36 (7-52) U/L Alkaline Phosphatase 56 (34-104) U/L Albumin 5.0 (3.4-5.0) gm/dl Supervising Physician Co-Signing Physician Notes Attending addendum: The patient was seen and examined in emergency room She was brought in with ongoing vomiting and diarrhea for the last 1 or 2 days She is an alcoholic and was in the hospital before and went to rehab and from there she went home Since of this month she has been drinking about half a bottle of vodka daily Vomiting about 10 times with diarrhea about 5 times Has been complaining of shakes and unsteadiness and was brought to the emergency room after calling 911 On examination Lying in bed with anxiety Has tachycardia and the blood pressure is maintaining Bilateral tremors involving the outstretched hand Chest-clear to auscultate bilaterally Heart-S1, S2 regular Abdomen-benign Extremities-negative for any edema 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 Very anxious. Tremors involving the outstretched hands. No focal neurodeficit Admission labs, EKG and imaging studies reviewed Significant alcoholism with withdrawal symptoms Nausea vomiting and diarrhea secondary Will send stool for cultures and C. difficile toxin Alcohol withdrawal protocol gabapentin Incidentally lactate was high at 5.9-repeat test came back at 5.0 likely secondary to nonspecific colitis Will start antibiotics Agree with assessment and plan as outlined above by CRICKET Overton Dr
[2022-08-26 17:27] LABS: Calcium 7.3 mg/dl (8.5-10.1); Potassium 4.1 mmol/L (3.5-5.1)
[2022-08-26 17:33] LABS: BUN Creatinine Ratio 27.7 (10-20); Creatinine Clr Calc Pharmacy 123.9 ml/min; Est GFR (African American) 126.2 ml/min; Est GFR (Non-African American) 108.9 ml/min
[2022-08-26] MEDS ORDERED: OPTIRAY 350 100ml IV ONE (18:38)
--- NOTE | 2022-08-26 19:11 | CT Scan Report ---
CT OF THE ABDOMEN AND PELVIS WITH CONTRAST CLINICAL HISTORY: Nausea and vomiting. COMPARISON STUDY: CT of the abdomen and pelvis May 02, 2021. TECHNIQUE: Following IV administration of 84 mL of Optiray, axial images of the abdomen and pelvis we re obtained from the lung bases to the proximal femurs. Images were reviewed in the axial, sagittal, and coronal planes. IV contrast was administered without complication. Automated exposure control wa s utilized for the study. A dose lowering technique was utilized adhering to the principles of ALARA . CT DOSE: 350.41 mGy.cm FINDINGS: Lung bases are unremarkable. No pneumatosis, free air or portal venous gas is present. Ther e is hepatic steatosis. No hepatic lesions are identified. There is no biliary or pancreatic ductal d ilatation. Spleen, adrenal glands, left kidney and pancreas are unremarkable. A 6.9 cm right renal cy st is again noted. There is no hydronephrosis. No peripancreatic or pericholecystic infiltration is p resent. The appendix is normal. There is no evidence for a bowel obstruction. Colonic diverticulosis is noted without evidence for acute diverticulitis. There is mild diffuse colonic wall thickening. Th ere may be minimal pericolonic stranding. There is also mild wall thickening of several distal ileal loops. No lymphadenopathy is present. There is no ascites. No acute fractures. Lumbar spine dextrosco liosis is incidentally noted. IMPRESSION: 1. Mild diffuse colonic wall thickening with possible pericolonic stranding. In addition, mild wall t hickening of several distal ileal loops. Although this could be due to underdistention, the findings raise the possibility of a nonspecific enterocolitis. 2. No bowel obstruction. 3. Hepatic steatosis. 4. Colonic diverticulosis without evidence for acute diverticulitis. ACT 112: Negative or not required by law. Electronically signed by: Kin Boateng M.D. 08/26/2022 7:09 PM
[2022-08-26] MEDS ORDERED: GABAPENTIN 1200MG ALCOHOL WITHDRAWAL LOAD PO STA (19:25)
[2022-08-26] MEDS ORDERED: LORazepam 2 MG/1 ML VIAL IV PRN ×3 (19:25)
[2022-08-26] MEDS ORDERED: traZODone HCL 50 MG TAB PO PRN (19:25)
[2022-08-26] MEDS ORDERED: ACETAMINOPHEN 325 MG TAB PO PRN (19:25)
[2022-08-26] MEDS ORDERED: Ativan IV Alcohol Withdrawal--Active Protocol IV PRN (19:25)
[2022-08-26] MEDS ORDERED: PROMETHAZINE HCL 12.5 MG in SODIUM CHLORIDE 0.9% 50 ML IV PRN (19:25)
[2022-08-26] MEDS ORDERED: GABAPENTIN 600 MG TAB PO ONE (19:30)
[2022-08-26] MEDS ORDERED: FLUARIX QUADRIVALENT 0.5 ML SYR IM ONE (19:38)
[2022-08-26] MEDS: metroNIDAZOLE 500 MG/100 ML BAG IV SCH (21:09)
[2022-08-26] MEDS ORDERED: LACTATED RINGER'S 1,000 ML IV ONE (21:26)
[2022-08-26] MEDS: CIPROFLOXACIN / D5W 400 MG/200 ML BAG IV SCH (22:54)
[2022-08-27] MEDS: metroNIDAZOLE 500 MG/100 ML BAG IV SCH (03:24)
[2022-08-27] MEDS: GABAPENTIN 600 MG TAB PO SCH ×2 (05:05→11:30)
[2022-08-27 06:10] LABS: Appearance Urine Clear (Clear); Bacteria Urine Automated 2+ (Negative); Bilirubin Urine Negative (Negative); Blood Urine 1+ (Negative); Cast Urine Automated 0 /lpf (0-5); Color Urine Orange; Epithelial Cell Urine Auto 20-30 /lpf (0-5); Glucose Urine UA Negative (Negative); Ketones Urine Trace (Negative); Leukocyte Esterase Urine 2+ (Negative); Nitrite Urine Negative (Negative); Protein Urine Negative (Negative); Specific Gravity Urine 1.024 (1.000-1.030); Urobilinogen Urine Negative (Negative)
[2022-08-27 06:46] LABS: Hematocrit (blood only) 34.5 % (37.0-47.0); Hemoglobin 12.2 g/dl (12.0-16.0); Mean Corpuscular Hemoglobin 30.9 pg (25.0-34.0); Mean Corpuscular Hgb Conc 35.4 g/dL (32.0-36.0); Mean Corpuscular Volume 87.3 fL (80.0-100.0); Mean Platelet Volume 10.5 fL (9.4-12.4); Platelet Count 147 K/uL (130-400); RDW Coefficient of Variation 12.7 % (11.5-14.5); RDW Standard Deviation 40.8 fL (36.4-46.3); Red Blood Count 3.95 M/uL (4.20-5.40); White Blood Count 4.79 K/ul (4.8-10.8)
[2022-08-27 06:51] LABS: Basophils # (auto) 0.01 K/uL (0-0.2); Basophils % (auto) 0.2 %; Eosinophils # (auto) 0.04 K/uL (0-0.50); Eosinophils % (auto) 0.8 %; Immature Granulocytes # (auto) 0.01 K/uL (0.01-0.20); Immature Granulocytes % (auto) 0.2 %; Lymphocytes # (auto) 1.68 K/uL (1.2-3.4); Lymphocytes % (auto) 35.1 %; Monocytes # (auto) 0.25 K/uL (0.11-0.59); Monocytes % (auto) 5.2 %; Neutrophils % (auto) 58.5 %
[2022-08-27 06:52] LABS: Calcium 8.1 mg/dl (8.5-10.1); Magnesium 1.4 mg/dl (1.7-2.4); Potassium 3.3 mmol/L (3.5-5.1)
[2022-08-27 07:21] LABS: BUN Creatinine Ratio 24.5 (10-20); Creatinine Clr Calc Pharmacy 118.5 ml/min; Est GFR (African American) 124.5 ml/min; Est GFR (Non-African American) 107.4 ml/min; Phosphorus 1.6 mg/dl (2.5-4.9)
[2022-08-27 08:27] LABS: Adenovirus F 40/41 PCR Not Detected (NotDetected); Astrovirus PCR Not Detected (NotDetected); Campylobacter PCR Not Detected (NotDetected); Cryptosporidium PCR Not Detected (NotDetected); Cyclospora cayetanensis PCR Not Detected (NotDetected); Entamoeba histolytica PCR Not Detected (NotDetected); Enteroaggregative E.coli(EAEC) Not Detected (NotDetected); Enteropathogenic E.coli (EPEC) Not Detected (NotDetected); Enterotoxigenic E.coli (ETEC) Not Detected (NotDetected); Giardia lamblia PCR Not Detected (NotDetected); Norovirus GI/GII PCR Not Detected (NotDetected); Plesiomonas shigelloides PCR Not Detected (NotDetected); Rotavirus A PCR Not Detected (NotDetected); Salmonella PCR Not Detected (NotDetected); Sapovirus PCR Not Detected (NotDetected); Shiga-like Toxin E.coli (STEC) Not Detected (NotDetected); Shigella/Enteroinvasive E.coli Not Detected (NotDetected); Vibrio cholerae PCR Not Detected (NotDetected); Vibrio species PCR Not Detected (NotDetected); Yersinia enterocolitica PCR Not Detected (NotDetected)
[2022-08-27] MEDS: CIPROFLOXACIN / D5W 400 MG/200 ML BAG IV SCH (08:47)
[2022-08-27] MEDS ORDERED: MULTIVITAMIN TAB PO SCH (09:00)
[2022-08-27] MEDS ORDERED: THIAMINE HCL 100 MG TAB PO SCH (09:00)
[2022-08-27] MEDS ORDERED: FOLIC ACID 1 MG TAB PO SCH (09:00)
[2022-08-27] MEDS ORDERED: POTASSIUM CHLORIDE CRTAB 20 MEQ TABCR PO STA (10:54)
[2022-08-27] MEDS ORDERED: PANTOprazole 40 MG in SYRINGE 0 ML IV SCH (11:00)
--- NOTE | 2022-08-27 11:03 | Discharge Summary ---
Discharge Summary Date of Service August 27, 2022 Notes For Next Care Provider She came in for vomiting and diarrhea after a relapse in alcohol abuse drinking heavily She is committed to outpatient rehab in [place] and reports wanting to be sober She reports continuing to attend AA classes May need mental health or other addiction counseling to help her lagos this disease. Stool culture was negative and her n/v/d was short-lived, she was tolerating food prior to discharge. She decided to forgo electrolyte replacment and left with low Mg, low Phos and low K. Oral supplementation was provided at discharge and she may need to have these levels checked next week. Medication Changes From Visit NEW MagOX 400mg PO BID NEW Neutra Phos PO QID Admission HPI Per Admitting Provider Patient is 57 y/o F with PMH anxiety, depression, alcohol abuse presented to ER with c/o wanting help with alcohol detox. Patient with history of alcoholism in past. Reports been in rehab in the past. Patient reports last alcohol use was in June 2022 with requiring hospitalization for alcohol detox. Patient states did not go to rehab at that time. She reports was doing well and was not drinking alcohol. Patient states went on vacation to [place] for 5 days. Returned on 08/17/2022. Reports while on vacation did not have any alcoholic drinks. On the way home on 08/17/2022 was in the airport with flight delays so she decided she would have a couple of mixed drinks. She has since been drinking half a bottle of vodka daily. Patient states her last year. This was her first vacation without him and she feels like this caused grief. She does admit that she has been having difficulty with the grieving process. Patient states yesterday started with nausea and vomiting. Reports 10 episodes of vomiting. Reports at least 5 episodes of watery diarrhea. Denies abdominal pain today. Does report some abdominal bloating intermittently after eating. Today felt chills. Has not taken her temperature. She states has had intermittent dry cough that she didn't notice but her son pointed out to her. Denies history DT's or seizures. Denies diaphoresis, hematemesis, melena, ANAYA, dizziness, syncope, vision changes, neck pain, CP, SOB, orthopnea, palpitations, sore throat, choking, otalgia, rhinorrhea, paresthesias, weakness, extremity weakness, extremity edema, rashes, urinary symptoms. Admission Exam Per Admitting Provider Physical Exam: General: no distress, WDWN Head: normocephalic, atraumatic Eyes: PERRL, EOM's intact, conjunctiva non-injected, anicteric ENT: normal inspection external ears, nose, mucous membranes moist, +alcohol odor Neck: supple, trachea midline Lungs: clear, no respiratory distress, no wheezing/rhonchi/rales CV: RRR, no murmur, no pretibial edema Abd: normal BS, soft, non-tender to palpation Ext: no cyanosis, no calf tenderness Neuro: A&O x 3, no focal deficits noted, normal affect Skin: warm, dry Principal Dx & Hospital Course #1 = Principal Diagnosis (1) Alcohol intoxication: (2) Vomiting and diarrhea: (3) Lactic acidosis: (4) Anxiety and depression: Plan Patient is a 57-year-old female known alcoholic with multiple previous encounters with this facility for alcohol intoxication. She arrives after a relapse and approximately 1 week of drinking a bottle of vodka daily. She is reporting vomiting and diarrhea. She was given supportive care with Protonix, Ativan and IV fluids. Her initial lactate was elevated and ultimately returned to normal prior to discharge. Supportive care was continued and at time of discharge she was feeling well, reporting no nausea vomiting or diarrhea and tolerating food without issue. CT abdomen pelvis was performed with contrast revealing colonic wall thickening and thickening of several distal ileal loops. Etiology was felt secondary to underdistention versus a nonspecific enterocolitis. She also had hepatic steatosis. Although initially she was placed on antibiotics with her history of IBS, antibiotics moving forward do not appear to be needed. Findings are consistent with GI upset from alcohol intoxication and heavy alcohol use recently. She reported feeling good about her sobriety and interested in attending an outpatient rehab in [place] that she is known about. We also discussed that it is important to surround herself with people who do not drink alcohol as she was recently in [facility] on vacation with family members who are drinking rather excessively around her. She verbalized understanding with intent to comply. She decided to forego electrolyte replacement on day of discharge and opted to take oral supplementation at home. Magnesium at time of discharge was 1.4, phosphorus was 1.6 and potassium was 3.3. Potassium supplementation was administered prior to discharge. Repeat levels are recommended at next week's follow-up with primary care. She was discharged in stable condition on physical exam there was no abdominal distention or pain. She has reported ongoing IBS issues and may need additional referral to gastroenterology as outpatient. Updated Medication List Medication Instructions Recorded Confirmed Type lorazepam 0.5 mg tablet 0.25 - 0.5 mg PO HS PRN Anxiety 01/22/21 08/26/22 History multivitamin 1 tab PO DAILY 07/12/22 08/26/22 History folic acid 1 mg tablet 1,000 mcg PO DAILY #30 tabs 07/14/22 08/26/22 Rx thiamine HCl (vitamin B1) 100 mg 100 mg PO DAILY #30 tabs 07/14/22 08/26/22 Rx tablet trazodone 50 mg tablet 25 - 50 mg PO HS PRN Sleep 08/26/22 08/26/22 History magnesium oxide 400 mg (241.3 mg 400 mg PO BID #60 tabs 08/27/22 Rx magnesium) tablet (MagOx) sodium di- and 1 tab PO QID #20 tabs 08/27/22 Rx monophosphate-potassium phos monobasic 250 mg tablet (Phospha Neutral) Hospital Stay Data Consultations 08/26/22 15:38 ED Decision to Admit Stat Diagnostic Imagining Performed 08/26/22 16:43 CT Abd and Pelvis [CT abd pelvis IV con only] Stat Pending Results Patient Have Any Pending Studies at Discharge: No Discharge Instructions Given to Patient (Per Discharging Provider) Please take all medications as instructed on discharge list below. Your magnesium, phosphorus and potassium are low at discharge and should be rechecked next week after supplementation ordered through your pharmacy. Congratulations on your first day of sobriety, please continue with your efforts and obtaining outpatient rehabilitation as planned in [place]. Please continue to work with your primary care doctor for referrals to mental health specialist that can help with addiction or other resources as needed to help you with this journey. Please avoid any situation where you would be driving while intoxicated. It was a pleasure taking care of you! Please call if you have any questions or problems. You can reach a [facility] hospitalist on duty at [facility] 24 hours a day by calling [phone]. Take care of yourself. DO Jose Jewell Hospitalist Total Time Total Time Spent Total Time Spent (In Minutes): 60
[2022-08-27] MEDS ORDERED: GABAPENTIN 600 MG TAB PO SCH (22:00)
[2022-08-29] MEDS ORDERED: GABAPENTIN 600 MG TAB PO SCH
[2022-08-30] MEDS ORDERED: GABAPENTIN 600 MG TAB PO SCH (12:00)
== END 2022-08-27 12:05 | disposition home or self-care (01) | DRG 897 ==
LOC: ED 10:23 → 2S 16:55 → SUATTDRO 16:55 → 2S 18:23

== ENCOUNTER 2022-11-21 04:49 | Observation (INO) ==
[2022-11-21] MEDS ORDERED: SODIUM CHLORIDE 0.9% 1000ML 1,000 ML IV ONE (05:17)
[2022-11-21] MEDS ORDERED: ONDANSETRON INJ 2 MG/ML 2 ML VIAL IV STA (05:39)
[2022-11-21] MEDS ORDERED: LORazepam 2 MG/1 ML VIAL IV STA (05:39)
[2022-11-21] MEDS: THIAMINE HCL 100 MG TAB PO STA ×2 (05:50→06:20)
[2022-11-21] MEDS: CEROVITE ADV FORMULA TAB PO STA ×2 (05:50→06:19)
[2022-11-21] MEDS: FOLIC ACID 1 MG TAB PO STA ×2 (05:50→06:21)
[2022-11-21 06:01] LABS: Basophils # (auto) 0.04 K/uL (0-0.2); Basophils % (auto) 0.9 %; Eosinophils # (auto) 0.06 K/uL (0-0.50); Eosinophils % (auto) 1.3 %; Hematocrit (blood only) 43.5 % (37.0-47.0); Hemoglobin 15.4 g/dl (12.0-16.0); Immature Granulocytes # (auto) 0.02 K/uL (0.01-0.20); Immature Granulocytes % (auto) 0.4 %; Lymphocytes # (auto) 2.02 K/uL (1.2-3.4); Lymphocytes % (auto) 43.9 %; Mean Corpuscular Hemoglobin 30.9 pg (25.0-34.0); Mean Corpuscular Hgb Conc 35.4 g/dL (32.0-36.0); Mean Corpuscular Volume 87.3 fL (80.0-100.0); Mean Platelet Volume 10.3 fL (9.4-12.4); Monocytes # (auto) 0.31 K/uL (0.11-0.59); Monocytes % (auto) 6.7 %; Neutrophils # (auto) 2.15 K/uL (1.40-6.50); Neutrophils % (auto) 46.8 %; Platelet Count 234 K/uL (130-400); RDW Coefficient of Variation 13.8 % (11.5-14.5); RDW Standard Deviation 43.8 fL (36.4-46.3); Red Blood Count 4.98 M/uL (4.20-5.40)
[2022-11-21 06:15] LABS: Albumin Level 4.8 gm/dl (3.4-5.0); Bilirubin,Total 0.6 mg/dl (0.2-1.0); Calcium 9.2 mg/dl (8.6-10.3); Creatinine Clr Calc Pharmacy 86.8 ml/min; Est GFR (African American) 115.8 ml/min; Est GFR (Non-African American) 99.9 ml/min; Globulin 2.4 gm/dl (2.5-4.0); Magnesium 2.2 mg/dl (1.7-2.4); Potassium 3.9 mmol/L (3.5-5.1); Total Protein 7.2 gm/dl (6.0-8.3)
[2022-11-21 06:17] LABS: Acetaminophen < 3 ug/ml (10-30); Salicylate < 3.0 mg/dl (3.0-30)
[2022-11-21 06:20] LABS: Pregnancy Test, Serum Negative (Negative)
--- NOTE | 2022-11-21 06:30 | Emergency Department Note ---
Impression & Plan Alcohol intoxication, Alcohol withdrawal, Alcohol use disorder ED Provider Note CHIEF COMPLAINT: "I need help" HISTORY OF PRESENT ILLNESS: This 57-year-old female patient presents to the emergency department via private vehicle for help with alcoholism. The patient states she relapsed about 3 to 4 days ago. She drinks about 2 bottles of wine per day. Her last drink was at about 2 AM this morning. She states she has been very depressed which caused her relapse. She notes that she has gone through this before and was sober prior to this relapse. She states she has been feeling very shaky. She denies any history of seizures. There has been no trauma or injury. The patient feels very anxious. She is experiencing nausea. Patient denies any hallucinations. She denies any chest pain. There have been some palpitations. No numbness or tingling. No shortness of breath. REVIEW OF SYSTEMS: A 10 system review of systems was performed with positives and pertinent negatives listed in the history of present illness. All other systems were reviewed and are negative. ALLERGIES: amoxicillin, azithromycin PHYSICAL EXAM: VITALS: Vitals are noted on the nurse's note and reviewed by myself. Vital signs stable. GENERAL: This is a 57 year old female, tearful and anxious appearing, but in no acute distress, nondiaphoretic, well-developed well-nourished. SKIN: The skin was without rashes, erythema, edema, or bruising. There is no tenting of the skin. Capillary refill less than 2 seconds. HEAD: Normocephalic atraumatic. EARS: External auditory canals clear, tympanic membranes pearly lechuga without erythema or effusion bilaterally. EYES: Pupils equal round and reactive to light and accommodation. Conjunctivae without injection, sclerae without icterus. Extraocular movements intact. NOSE: Patent, turbinates without inflammation or discharge. No sinus tenderness . MOUTH: Mucous membranes moist. Tonsils are not enlarged. Pharynx without erythema or exudate. Uvula midline. Airway patent. Tongue does not deviate. NECK: Supple without nuchal rigidity. No lymphadenopathy. No thyromegaly. Cervical spine is nontender. No JVD. HEART: Regular rate and rhythm without murmurs gallops or rubs. LUNGS: Clear to auscultation bilaterally without wheezes, rales or rhonchi. No retractions or accessory muscle use. ABDOMEN: Positive bowel sounds x 4. Normal tympanic percussion. Soft, nontender, without masses or organomegaly. Sepulveda sign negative. No guarding or rebound tenderness. MUSCULOSKELETAL: No muscle atrophy, erythema, or edema noted. Full range of motion without joint tenderness in all extremities. No tenderness to palpation. Normal gait. Strength 5/5 throughout. NEURO: Patient was alert and oriented to person place and time. Normal se nsation to light and sharp touch. Deep tendon reflexes 2+ throughout. No focal neurological deficits. EKG (per my interpretation): Normal sinus rhythm with a ventricular rate of [address] elevation or depression. T wave inversion in inferior, lateral leads. T wave inversion is new when compared to EKG from 07/12/2022. An order was placed for continuous director of cardiac rehabilitation. This showed a normal sinus rhythm with ventricular rate of 83 bpm, per my interpretation. EMERGENCY DEPARTMENT COURSE: The patient was seen and evaluated as above. IV access obtained, labs drawn. No leukocytosis, anemia, thrombocytopenia. The patient does have an anion gap of 17. AST is elevated at 44. TSH 1.353. hCG negative. Acetaminophen and salicylates negative. Alcohol is elevated at 251.3. COVID-19 testing is negative. The patient is shaky on arrival. The patient was hydrated with IV fluids and medicated with thiamine, folic acid, and multivitamin. The patient was medicated with Zofran and Ativan. She was extremely anxious upon initial presentation. Her anxiety did seem to improve and the patient was much more calm on repeat examinations. The patient's O2 saturation did start to drop to 88% on room air after administration of the Ativan. She was placed on 2 L of oxygen via nasal cannula. I did speak with the client services manager regarding admission. I [facility]. At this time, the client services manager, Caitie, would like to speak with the patient regarding her options and potentially send her to an alcohol rehab facility. The patient states she does not feel comfortable going to an alcohol rehab facility. She feels that she needs to sober up and "get my head on straight" before she makes a final decision on the location, she has had some poor experiences in the past. I did contact Dr. Rodrigues who advised the admission will go to Dr. Maldonado. Orders for admission placed. I discussed the case with Dr. Maldonado. Please see hospitalist dictation regarding ongoing management and care of this patient. Differential diagnosis includes withdrawal, alcohol intoxication, toxicologic, infection, hypoglycemia, electrolyte abnormalities, cardiac sources, intracerebral event, neurologic, trauma, as well as other pathologies. I attest that I have personally reviewed the patient's current medication list. Patient was found to have normal blood pressure on screening and does not require follow-up. The chart was completed utilizing Nabto voice recognition software. Grammatical errors, random word insertions, pronoun errors, and incomplete sentences are an occasional consequence of this system due to software limitatio ns, ambient noise, and hardware issues. Any formal questions or concerns about the content, text, or information contained within the body of this dictation should be directly addressed to the provider for clarification. Past Med/Surg History Medical History Alcohol use disorder Anxiety and depression Chest pain HX DSE done October 2020- negative for ischemia but did show highly mobile mass/vegation on MV Chronic back pain NECK AND LOWER BACK-NECK FULL ROM Dyslipidemia Per records - PT NOT SURE Endocarditis 11/24/20 - culture negative endocarditis - tx'ed with six weeks IV abxs PER PT: SUSBSEQUENT TESTING PER DR HATFIELD - DIDN'T FEEL C/P WAS RELATED TO ENDOCARDITIS AND THAT IT WAS RELATED TO MVP. Mitral valve prolapse SUMMER [address] HATFIELD Scoliosis Surgical History History of blepharoplasty History of transesophageal echocardiography (ARTURO) Family History Brother Coronary heart disease Fatal CA age 55 Diabetes Father Coronary heart disease Diabetes Hypertension Mother Coronary heart disease Social History Smoking Status: Never smoker Second Hand Exposure: No; Hx Alcohol Use: Yes Alcohol type: wine and hard liquor Hx Substance Use: No Preferred Language: Kazakh Communication Ability: Effective Visual Impairment: No Limitations 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: Normal Stamping Operator Required: No Beliefs That Will Affect Care: None marital status: Current Living Situation: Family Current Living Situation Comment: SON LIVES DOWNSTAIRS current occupational status: retired Feels Safe at Home: Yes Assistive Devices: None Allergies Allergies Allergy/AdvReac Type Severity Reaction Status Date / Time amoxicillin Allergy Intermediate RASH/HIVES Verified 10/13/22 00:52 azithromycin AdvReac Mild Gastrointestinal Verified 08/26/22 15:20 Upset Home Meds Home Medications Medication Instructions Recorded Confirmed trazodone 50 mg tablet 25 - 50 mg PO HS PRN Sleep 08/26/22 10/13/22 magnesium oxide 400 mg (241.3 mg 400 mg PO AMHS 10/13/22 10/13/22 magnesium) tablet (MagOx) [id number]-[id number]-FA-Ca carb-vit K 1 tab PO DAILY 10/13/22 10/13/22 18 mg iron-400 mcg-500 mg tablet (One-A-Day Womens Formula) semaglutide (weight loss) 0.5 0.5 mg subcut WK 10/13/22 10/13/22 mg/0.5 mL subcutaneous pen injector (Wegovy) thiamine HCl (vitamin B1) 100 mg 100 mg PO QAM 10/13/22 10/13/22 tablet Previous Rx's Medication Instructions Recorded folic acid 1 mg tablet 1,000 mcg PO DAILY #30 tabs 07/14/22 sodium di- and 1 tab PO QID #20 tabs 08/27/22 monophosphate-potassium phos monobasic 250 mg tablet (Phospha Neutral) Results & Data (ED) Vital Signs Vital Signs - 24 hr 11/21/22 04:53 11/21/22 05:21 11/21/22 05:19 Temperature 36.7 C Temperature Source Temporal Artery Scan Pulse Rate 92 H 82 87 Pulse Rate [Apical] Respiratory Rate 22 24 Respiratory Effort / Characteristics Respiratory Depth Respiratory Pattern Blood Pressure 135/82 117/74 Blood Pressure [Right Arm] Blood Pressure Mean 99 88 Blood Pressure Mean [Right Arm] Blood Pressure Position [Right Arm] Pulse Oximetry 95 90 Oxygen Delivery Method Room Air Oxygen Flow Rate Sepsis Recent Fever Within 48 Hours No Sepsis New/Unexplained Change in Mental Status No Sepsis Action Taken by Nursing No Action Required Oxygen Flow Rate - Titration Pulse Oximetry Post Tiitration 11/21/22 05:30 11/21/22 06:00 11/21/22 06:00 Temperature Temperature Source Pulse Rate 83 83 Pulse Rate [Apical] Respiratory Rate 20 22 Respiratory Effort / Characteristics Respiratory Depth Respiratory Pattern Blood Pressure 120/79 122/71 Blood Pressure [Right Arm] Blood Pressure Mean 92 88 Blood Pressure Mean [Right Arm] Blood Pressure Position [Right Arm] Pulse Oximetry 93 Oxygen Delivery Method Oxygen Flow Rate Sepsis Recent Fever Within 48 Hours Sepsis New/Unexplained Change in Mental Status Sepsis Action Taken by Nursing Oxygen Flow Rate - Titration Pulse Oximetry Post Tiitration 11/21/22 06:51 11/21/22 07:14 Temperature Temperature Source Pulse Rate Pulse Rate [Apical] 76 Respiratory Rate 18 Respiratory Effort / Characteristics Non-Labored Spontaneous Respiratory Depth Normal Respiratory Pattern Regular Blood Pressure Blood Pressure [Right Arm] 113/76 Blood Pressure Mean Blood Pressure Mean [Right Arm] 88 Blood Pressure Position [Right Arm] Sitting Pulse Oximetry 89 L 95 Oxygen Delivery Method Nasal Cannula Nasal Cannula Oxygen Flow Rate 0 2 Sepsis Recent Fever Within 48 Hours Sepsis New/Unexplained Change in Mental Status Sepsis Action Taken by Nursing Oxygen Flow Rate - Titration 2 Pulse Oximetry Post Tiitration 92 Laboratory Data 11/21/22 05:30 11/21/22 05:30 Lab Results 11/21/22 11/21/22 11/21/22 Range/Units 05:30 05:30 05:30 WBC 4.60 L (4.8-10.8) K/ul RBC 4.98 (4.20-5.40) M/uL Hgb 15.4 (12.0-16.0) g/dl Hct 43.5 (37.0-47.0) % MCV 87.3 (80.0-100.0) fL MCH 30.9 (25.0-34.0) pg MCHC 35.4 (32.0-36.0) g/dL RDW Std Deviation 43.8 (36.4-46.3) fL RDW Coeff of Diamond 13.8 (11.5-14.5) % Plt Count 234 (130-400) K/uL MPV 10.3 (9.4-12.4) fL Immature Gran % (Auto) 0.4 % Neut % (Auto) 46.8 % Lymph % (Auto) 43.9 % Ventura % (Auto) 6.7 % Eos % (Auto) 1.3 % Baso % (Auto) 0.9 % Neut # (Auto) 2.15 (1.40-6.50) K/uL Lymph # (Auto) 2.02 (1.2-3.4) K/uL [place]ura # (Auto) 0.31 (0.11-0.59) K/uL Eos # (Auto) 0.06 (0-0.50) K/uL Baso # (Auto) 0.04 (0-0.2) K/uL Immature Gran # (Auto) 0.02 (0.01-0.20) K/uL Sodium 137 (136-145) mmol/L Potassium 3.9 (3.5-5.1) mmol/L Chloride 97 L (98-107) mmol/L Carbon Dioxide 23 (21-32) mmol/L Anion Gap 17 H (3-11) BUN 14 (6-23) mg/dl Creatinine 0.61 (0.6-1.2) mg/dl Est Cr Clr Drug Dosing 86.8 ml/min Est GFR ( Amer) 115.8 ml/min Est GFR (Non-Af Amer) 99.9 ml/min BUN/Creatinine Ratio 23.0 H (10-20) Glucose 112 H (70-99(Fasting)) mg/dl Calcium 9.2 (8.6-10.3) mg/dl Magnesium 2.2 (1.7-2.4) mg/dl Total Bilirubin 0.6 (0.2-1.0) mg/dl AST 44 H (13-39) U/L ALT 28 (7-52) U/L Alkaline Phosphatase 44 (34-104) U/L Total Protein 7.2 (6.0-8.3) gm/dl Albumin 4.8 (3.4-5.0) gm/dl Globulin 2.4 L (2.5-4.0) gm/dl Albumin/Globulin Ratio 2.0 (0.9-2) TSH (0.300-4.500) uIu/ml HCG, Qual (Negative) Salicylates < 3.0 L (3.0-30) mg/dl Acetaminophen < 3 L (10-30) ug/ml Ethyl Alcohol mg/dL (<10.0) mg/dl SARS-CoV-2, RNA, NAAT (NEGATIVE) 11/21/22 11/21/22 11/21/22 Range/Units 05:30 05:30 05:35 WBC (4.8-10.8) K/ul RBC (4.20-5.40) M/uL Hgb (12.0-16.0) g/dl Hct (37.0-47.0) % MCV (80.0-100.0) fL MCH (25.0-34.0) pg MCHC (32.0-36.0) g/dL RDW Std Deviation (36.4-46.3) fL RDW Coeff of Diamond (11.5-14.5) % Plt Count (130-400) K/uL MPV (9.4-12.4) fL Immature Gran % (Auto) % Neut % (Auto) % Lymph % (Auto) % Ventura % (Auto) % Eos % (Auto) % Baso % (Auto) % Neut # (Auto) (1.40-6.50) K/uL Lymph # (Auto) (1.2-3.4) K/uL Ventura # (Auto) (0.11-0.59) K/uL Eos # (Auto) (0-0.50) K/uL Baso # (Auto) (0-0.2) K/uL Immature Gran # (Auto) (0.01-0.20) K/uL Sodium (136-145) mmol/L Potassium (3.5-5.1) mmol/L Chloride (98-107) mmol/L Carbon Dioxide (21-32) mmol/L Anion Gap (3-11) BUN (6-23) mg/dl Creatinine (0.6-1.2) mg/dl Est Cr Clr Drug Dosing ml/min Est GFR ( Amer) ml/min Est GFR (Non-Af Amer) ml/min BUN/Creatinine Ratio (10-20) Glucose (70-99(Fasting)) mg/dl Calcium (8.6-10.3) mg/dl Magnesium (1.7-2.4) mg/dl Total Bilirubin (0.2-1.0) mg/dl AST (13-39) U/L ALT (7-52) U/L Alkaline Phosphatase (34-104) U/L Total Protein (6.0-8.3) gm/dl Albumin (3.4-5.0) gm/dl Globulin (2.5-4.0) gm/dl Albumin/Globulin Ratio (0.9-2) TSH 1.353 (0.300-4.500) uIu/ml HCG, Qual Negative (Negative) Salicylates (3.0-30) mg/dl Acetaminophen (10-30) ug/ml Ethyl Alcohol mg/dL 251.3 H (<10.0) mg/dl SARS-CoV-2, RNA, NAAT (NEGATIVE) 11/21/22 Range/Units 06:55 WBC (4.8-10.8) K/ul RBC (4.20-5.40) M/uL Hgb (12.0-16.0) g/dl Hct (37.0-47.0) % MCV (80.0-100.0) fL MCH (25.0-34.0) pg MCHC (32.0-36.0) g/dL RDW Std Deviation (36.4-46.3) fL RDW Coeff of Diamond (11.5-14.5) % Plt Count (130-400) K/uL MPV (9.4-12.4) fL Immature Gran % (Auto) % Neut % (Auto) % Lymph % (Auto) % Ventura % (Auto) % Eos % (Auto) % Baso % (Auto) % Neut # (Auto) (1.40-6.50) K/uL Lymph # (Auto) (1.2-3.4) K/uL Ventura # (Auto) (0.11-0.59) K/uL Eos # (Auto) (0-0.50) K/uL Baso # (Auto) (0-0.2) K/uL Immature Gran # (Auto) (0.01-0.20) K/uL Sodium (136-145) mmol/L Potassium (3.5-5.1) mmol/L Chloride (98-107) mmol/L Carbon Dioxide (21-32) mmol/L Anion Gap (3-11) BUN (6-23) mg/dl Creatinine (0.6-1.2) mg/dl Est Cr Clr Drug Dosing ml/min Est GFR ( Amer) ml/min Est GFR (Non-Af Amer) ml/min BUN/Creatinine Ratio (10-20) Glucose (70-99(Fasting)) mg/dl Calcium (8.6-10.3) mg/dl Magnesium (1.7-2.4) mg/dl Total Bilirubin (0.2-1.0) mg/dl AST (13-39) U/L ALT (7-52) U/L Alkaline Phosphatase (34-104) U/L Total Protein (6.0-8.3) gm/dl Albumin (3.4-5.0) gm/dl Globulin (2.5-4.0) gm/dl Albumin/Globulin Ratio (0.9-2) TSH (0.300-4.500) uIu/ml HCG, Qual (Negative) Salicylates (3.0-30) mg/dl Acetaminophen (10-30) ug/ml Ethyl Alcohol mg/dL (<10.0) mg/dl SARS-CoV-2, RNA, NAAT NEGATIVE (NEGATIVE) Administered Medications Discontinued Medications Folic Acid (Folic Acid 1 Mg Tab) 1 mg PO NOW STA Stop: 11/21/22 05:18 Last Admin: 11/21/22 06:21 Dose: 1 mg Documented By: LOC Sodium Chloride (Nss 1000ml) 1,000 mls @ 999 mls/hr IV .Q1H1M ONE Stop: 11/21/22 06:17 Last Infusion: 11/21/22 06:50 Dose: 0 mls/hr Documented By: Admin: 11/21/22 05:50 Dose: 999 mls/hr Documented By: LOC Lorazepam (Lorazepam 2 Mg/1 Ml Vial) 1 mg IV NOW STA Stop: 11/21/22 05:40 Last Admin: 11/21/22 05:47 Dose: 1 mg Documented By: LOC Multivitamins/Minerals (Cerovite Adv Formula Tab) 1 tab PO NOW STA Stop: 11/21/22 05:22 Last Admin: 11/21/22 06:19 Dose: 1 tab Documented By: LOC Ondansetron HCl (Ondansetron Inj 2 Mg/Ml 2 Ml Vial) 4 mg IV NOW STA Stop: 11/21/22 05:40 Last Admin: 11/21/22 05:47 Dose: 4 mg Documented By: LOC Thiamine HCl (Thiamine Hcl 100 Mg Tab) 100 mg PO NOW STA Stop: 11/21/22 05:18 Last Admin: 11/21/22 06:20 Dose: 100 mg Documented By: LOC Discharge Plan Visit Data Chief Complaint: Detox Request Stated Complaint: REQUEST FOR HELP WITH ALCOHOL ED Provider: Echo Nuñez ED Midlevel Provider: Caitie Epperson Discharge Problem: Alcohol intoxication, Alcohol withdrawal, Alcohol use disorder Patient Disposition: Admitted As Inpatient Forms Stand Alone Forms: My [facility], Suicide Prevention Resources Prescriptions Prescriptions: No Action folic acid 1 mg tablet 1,000 mcg PO DAILY Qty: 30 0RF trazodone 50 mg tablet 25 - 50 mg PO HS PRN (Reason: Sleep) Phospha 250 Neutral 250 mg tablet 1 tab PO QID Qty: 20 0RF Wegovy 0.5 mg/0.5 mL pen injector 0.5 mg SUBCUT WK magnesium oxide [MagOx] 400 mg (241.3 mg magnesium) tablet 400 mg PO AMHS thiamine HCl (vitamin B1) 100 mg tablet 100 mg PO QAM One-A-Day Womens Formula 18 mg iron-400 mcg-500 mg Tablet 1 tab PO DAILY Referrals Referrals: PCP,NO [Primary Care Provider] -
[2022-11-21] MEDS ORDERED: PROMETHAZINE HCL 6.25 MG in SODIUM CHLORIDE 0.9% 50 ML IV STA (08:37)
--- NOTE | 2022-11-21 10:26 | History & Physical Report ---
Date of Service November 21, 2022 Assessment & Plan (1) Alcohol use disorder: Plan: Admit to [facility] with telemetry Patient presenting from home for request of alcohol detox. Patient with longstanding history of alcohol abuse, started drinking again last month after the passing of her father. Had been sober for about 2 months. Patient reports drinking 2 bottles of wine/day. Last drink was last evening. Alcohol withdrawal protocol with gabapentin and IV lorazepam Thiamine, folic acid, multivitamin Patient has plans to go to [place] for inpatient rehab. DVT PROPHYLAXIS SCDs Patient was seen in collaboration with Dr. Hurst. I spent a total of 60 minutes coordinating, documenting, and providing care for this patient excluding time spent in the performance of separately billed services. This included personally reviewing all current laboratories and imaging studies, medication reconciliation, outpatient chart review, and discussion with specialists. History of Present Illness Chief Complaint: Alcohol Detox Request Primary Care Provider: NO PCP 57 year old female with PMH alcohol use disorder, anxiety, and other problems listed below who presents to the ED for alcohol detox request. History obtained from patient and review of outpatient PCP and psychiatry records. Patient with longstanding history of alcohol abuse. Patient recently admitted 07/2022 for alcohol abuse. Patient reports remaining sober until 1 month ago after her father . Patient reports she is drinking 2 bottles of wine per day. Last drink was last evening. Patient reports feeling anxious, tremulous, nauseous. No vomiting. Denies chest pain shortness of breath. No lightheadedness, dizziness, diaphoresis, syncopal events. She denies any other recent illnesses, fevers, chills. No urinary symptoms. In the ED, labs show alcohol level 251, mildly elevated AST 44. Patient is hemodynamically stable. She was given folic acid, thiamine, multivitamin, IVF, IV lorazepam. Allergies Allergy/AdvReac Type Severity Reaction Status Date / Time amoxicillin Allergy Intermediate RASH/HIVES Verified 10/13/22 00:52 azithromycin AdvReac Mild Gastrointestinal Verified 08/26/22 15:20 Upset Home Medications Medication Instructions Recorded Confirmed Type folic acid 1 mg tablet 1,000 mcg PO DAILY #30 tabs 07/14/22 11/21/22 Rx mzssinhw-aue-fwsk-FA-Ca carb-vit K 1 tab PO DAILY 10/13/22 11/21/22 History 18 mg iron-400 mcg-500 mg tablet (One-A-Day Womens Formula) thiamine HCl (vitamin B1) 100 mg 100 mg PO QAM 10/13/22 11/21/22 History tablet semaglutide (weight loss) 0.25 0.25 mg subcut WK 11/21/22 11/21/22 History mg/0.5 mL subcutaneous pen injector (Neno) Past Med/Surg History Medical History Acute duodenal ulcer (02/25/13) Alcohol use disorder Anxiety and depression Arthritis Chest pain HX DSE done October 2020- negative for ischemia but did show highly mobile mass/vegation on MV Chronic back pain NECK AND LOWER BACK-NECK FULL ROM Dyslipidemia Per records - PT NOT SURE Endocarditis 11/24/20 - culture negative endocarditis - tx'ed with six weeks IV abxs PER PT: SUSBSEQUENT TESTING PER DR HATFIELD - DIDN'T FEEL C/P WAS RELATED TO ENDOCARDITIS AND THAT IT WAS RELATED TO MVP. Mitral valve prolapse SUMMER [address] HATFIELD Scoliosis Surgical History History of blepharoplasty History of transesophageal echocardiography (ARTURO) Family History Brother Coronary heart disease Fatal [place] age 55 Diabetes Father Coronary heart disease Diabetes Hypertension Mother Coronary heart disease Social History Smoking Status: Never smoker Second Hand Exposure: No; Hx Alcohol Use: Yes Alcohol type: wine and hard liquor Hx Substance Use: No Preferred Language: Kinyarwanda Communication Ability: Effective Visual Impairment: No Limitations 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: Normal Railway Equipment Operator Required: No Beliefs That Will Affect Care: None marital status: Current Living Situation: Family Current Living Situation Comment: SON LIVES DOWNSTAIRS current occupational status: retired Feels Safe at Home: Yes Assistive Devices: None Review of Systems Review of Systems: ROS per HPI, all other systems reviewed and negative Physical Exam Constitutional: WD/WN, vitals as above Eyes: PERRL, conjunctivae normal, anicteric sclerae ENMT: external ear and nose normal, oropharynx normal Respiratory: normal respiratory effort, lungs clear to auscultation Cardiovascular: Rate/Rhythm: regular rate and regular rhythm Vessels: normal peripheral pulses Extremities: no edema Gastrointestinal (Abdomen): normal bowel sounds, soft, nontender, no hepatosplenomegaly Musculoskeletal: no cyanosis or clubbing, extremities motor strength 5/5 Skin: no rashes, warm and dry Neurologic: PERRL, EOMI, accommodation nl, no face palsy, no dysarthria Motor/Sensory: no tremor Psychiatric: Orientation: oriented x 3 Falls asleep quickly during exam however arouses easily to verbal stimuli Results & Data Results & Data Vital Signs (Past 12 Hours) Vital Signs Temp Pulse Pulse Resp BP BP Pulse Ox 11/21/22 09:25 71 11/21/22 08:00 89 16 117/72 90 11/21/22 07:14 76 18 113/76 95 11/21/22 06:51 89 L 11/21/22 06:00 83 22 11/21/22 06:00 122/71 11/21/22 05:30 83 20 120/79 93 11/21/22 05:19 87 24 117/74 90 11/21/22 05:21 82 11/21/22 04:53 36.7 C 92 H 22 135/82 95 O2 Del Method O2 Flow Rate 11/21/22 09:25 11/21/22 08:00 Nasal Cannula 2 11/21/22 07:14 Nasal Cannula 2 11/21/22 06:51 Nasal Cannula 0 11/21/22 06:00 11/21/22 06:00 11/21/22 05:30 11/21/22 05:19 11/21/22 05:21 11/21/22 04:53 Room Air Laboratory Results Short CBC 11/21/22 Range/Units 05:30 WBC 4.60 L (4.8-10.8) K/ul Hgb 15.4 (12.0-16.0) g/dl Hct 43.5 (37.0-47.0) % Plt Count 234 (130-400) K/uL BMP 11/21/22 05:30 Sodium 137 Potassium 3.9 Chloride 97 L Carbon Dioxide 23 BUN 14 Creatinine 0.61 Glucose 112 H Calcium 9.2 Liver Function 11/21/22 Range/Units 05:30 Total Bilirubin 0.6 (0.2-1.0) mg/dl AST 44 H (13-39) U/L ALT 28 (7-52) U/L Alkaline Phosphatase 44 (34-104) U/L Albumin 4.8 (3.4-5.0) gm/dl Supervising Physician Co-Signing Physician Notes Pt was seen and examined. Agreed with Angie HAYNES exam, assessment and plan. 57 year old female with PMH alcohol use disorder, anxiety presents to the ED for alcohol intoxication and she requested to get detox. Pt had multiple admission and ER visit in the past alcohol abuse. last admission was on 07/2022 for alcohol abuse. She was planning to go to rehab at a place in [place] during last admission. She said that she did not go to rehab. She has been drinking 2 bottles of wine daily. Her last drink was this morning around 2AM. She said that she feels anxious, shaking and nauseated. She denies any history of DT. In the ED, labs revealed alcohol level 251, AST 44. She was started on gabapentin and Ativan with alcohol withdrawal protocol. Continue thiamine, folic acid and Multivitamin. Consider inpatient alcohol rehab once medical stable. Will monitor closely for sign of alcohol withdrawal and DT. Around noon, pt decided that she wants to sign AMA. Angie HAYNES went to talk to her to convince her to stay. she does not want to stay in the hospital. She understands the risk of leaving AMA such as worsening symptoms of alcohol withdrawal, delirium tremens that can lead to , seizure and even . MD Natali
[2022-11-21] MEDS ORDERED: Ativan IV Alcohol Withdrawal--Active Protocol IV PRN (10:34)
[2022-11-21] MEDS ORDERED: FOLIC ACID 1 MG TAB PO SCH (10:34)
[2022-11-21] MEDS ORDERED: THIAMINE HCL 100 MG TAB PO SCH (10:34)
[2022-11-21] MEDS ORDERED: LORazepam 2 MG/1 ML VIAL IV PRN ×3 (10:34)
[2022-11-21] MEDS ORDERED: ONDANSETRON INJ 2 MG/ML 2 ML VIAL IV PRN (10:34)
[2022-11-21] MEDS ORDERED: GABAPENTIN 1200MG ALCOHOL WITHDRAWAL LOAD PO STA (10:34)
[2022-11-21] MEDS ORDERED: GABAPENTIN 600 MG TAB PO ONE (11:00)
--- NOTE | 2022-11-21 12:03 | Communication Note ---
Date of Service: November 21, 2022 Received call from nursing that patient wishes to leave AMA. Patient was reevaluated at the bedside. She is awake, alert, oriented. No tremors noted. Risks discussed with patient about leaving AMA including worsening withdrawal symptoms, seizure, and even . Patient accepts these risks and wishes to leave AMA. I offered to make the patient an appointment with her PCP, she declined. [place]
--- NOTE | 2022-11-21 13:10 | Electrocardiogram Report ---
Test Reason : Blood Pressure : / mmHG Vent. Rate : 076 BPM Atrial Rate : 076 BPM P-R Int : 170 ms QRS Dur : 094 ms QT Int : 422 ms P-R-T Axes : 038 -10 015 degrees QTc Int : 474 ms Normal sinus rhythm Low voltage QRS Cannot rule out Inferior infarct (cited on or before 21-NOV-2022) Poor R wave progression, consider anterior TN vs. lead placement vs. LVH Nonspecific T wave abnormality Abnormal ECG When compared with ECG of 12-JUL-2022 23:37, Nonspecific T wave abnormality now evident in Inferior leads Nonspecific T wave abnormality now evident in Lateral leads Confirmed by Tiburcio Miles ([id number]) on 11/21/2022 1:09:39 PM Referred By: REFERRED SELF Confirmed By:Tiburcio Miles
[2022-11-21] MEDS ORDERED: GABAPENTIN 600 MG TAB PO SCH (17:00)
[2022-11-22] MEDS ORDERED: GABAPENTIN 600 MG TAB PO SCH (07:00)
[2022-11-23] MEDS ORDERED: GABAPENTIN 600 MG TAB PO SCH (11:00)
[2022-11-24] MEDS ORDERED: GABAPENTIN 600 MG TAB PO SCH (22:00)
== END 2022-11-21 12:09 | disposition left against medical advice (07) ==
LOC: ED 04:49 → INTOOBSV 08:13 → EDINP 08:13

== ENCOUNTER 2022-12-13 03:13 | Observation (INO) ==
[2022-12-13] MEDS ORDERED: CEROVITE ADV FORMULA TAB PO STA (03:24)
[2022-12-13] MEDS ORDERED: THIAMINE HCL 100 MG, FOLIC ACID 1 MG in SODIUM CHLORIDE 0.9% 1000ML 1,000 ML IV STA (03:24)
[2022-12-13] MEDS ORDERED: LORazepam 2 MG/1 ML VIAL IV STA ×2 (03:24→04:17)
[2022-12-13] MEDS ORDERED: chlordiazePOXIDE HCl 25 MG CAP PO ONE (03:25)
[2022-12-13] MEDS ORDERED: SODIUM CHLORIDE 0.9% 1000ML 1,000 ML IV SCH ×2 (03:30→06:40)
[2022-12-13] MEDS ORDERED: ONDANSETRON INJ 2 MG/ML 2 ML VIAL IV STA (03:38)
--- NOTE | 2022-12-13 03:38 | Emergency Department Note ---
History of Present Illness General Chief complaint: Alcohol Withdrawal Stated complaint: ALCOHOL WITHDRAWAL, ANXIETY Time Seen by Provider: 12/13/22 03:24 History of Present Illness This 57-year-old alcoholic presents to the ER requesting detox. She has been drinking alcohol today. She does feel slightly tremulous. Patient denies chest pain, dyspnea, history of withdrawal seizures. No other concerns per patient. Home Medications Medication Instructions Recorded Confirmed Type folic acid 1 mg tablet 1,000 mcg PO DAILY #30 tabs 07/14/22 11/21/22 Rx pisstcpl-kgy-cefm-FA-Ca carb-vit K 1 tab PO DAILY 10/13/22 11/21/22 History 18 mg iron-400 mcg-500 mg tablet (One-A-Day Womens Formula) thiamine HCl (vitamin B1) 100 mg 100 mg PO QAM 10/13/22 11/21/22 History tablet semaglutide (weight loss) 0.25 0.25 mg subcut WK 11/21/22 11/21/22 History mg/0.5 mL subcutaneous pen injector (Wegovy) Allergies Allergy/AdvReac Type Severity Reaction Status Date / Time amoxicillin Allergy Intermediate RASH/HIVES Verified 10/13/22 00:52 azithromycin AdvReac Mild Gastrointestinal Verified 08/26/22 15:20 Upset Past Med/Surg History Medical History Acute duodenal ulcer (02/25/13) Alcohol use disorder Anxiety and depression Arthritis Chest pain HX DSE done October 2020- negative for ischemia but did show highly mobile mass/v egation on MV Chronic back pain NECK AND LOWER BACK-NECK FULL ROM Dyslipidemia Per records - PT NOT SURE Endocarditis 11/24/20 - culture negative endocarditis - tx'ed with six weeks IV abxs PER PT: SUSBSEQUENT TESTING PER DR HATFIELD - DIDN'T FEEL C/P WAS RELATED TO ENDOCARDITIS AND THAT IT WAS RELATED TO MVP. Mitral valve prolapse SUMMER [address] HATFIELD Scoliosis Surgical History History of blepharoplasty History of transesophageal echocardiography (ARTURO) Family History Brother Coronary heart disease Fatal [place] age 55 Diabetes Father Coronary heart disease Diabetes Hypertension Mother Coronary heart disease Social History Smoking Status: Never smoker Second Hand Exposure: No; Do You Dip or Chew Tobacco: No; Hx Alcohol Use: Yes Alcohol type: wine and hard liquor Hx Substance Use: No Preferred Language: Austrian Communication Ability: Effective Visual Impairment: No Limitations 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: Normal Game Design Instructor Required: No Beliefs That Will Affect Care: None marital status: Current Living Situation: Family Current Living Situation Comment: SON LIVES DOWNSTAIRS current occupational status: retired Feels Safe at Home: Yes Assistive Devices: None Review of Systems A total of 10 systems reviewed and were otherwise negative Physical Exam Vital Signs Vital Signs - 24 hr 12/13/22 03:18 12/13/22 03:45 12/13/22 04:15 Temperature 36.6 C Temperature Source Temporal Artery Scan Pulse Rate 107 H 98 H Pulse Rate [Apical] Respiratory Rate 20 Respiratory Effort / Characteristics Non-Labored Spontaneous Respiratory Depth Normal Blood Pressure 118/67 Blood Pressure [Left Arm] Blood Pressure Mean 84 Blood Pressure Mean [Left Arm] Pulse Oximetry 92 86 L Oxygen Delivery Method Room Air Nasal Cannula Oxygen Flow Rate 0 Sepsis Recent Fever Within 48 Hours No Sepsis New/Unexplained Change in Mental Status N/A Sepsis Action Taken by Nursing No Action Required Oxygen Flow Rate - Titration 3 Pulse Oximetry Post Tiitration 98 12/13/22 04:35 Temperature Temperature Source Pulse Rate Pulse Rate [Apical] 72 Respiratory Rate 18 Respiratory Effort / Characteristics Respiratory Depth Blood Pressure Blood Pressure [Left Arm] 115/65 Blood Pressure Mean Blood Pressure Mean [Left Arm] 81 Pulse Oximetry 100 Oxygen Delivery Method Nasal Cannula Oxygen Flow Rate 3 Sepsis Recent Fever Within 48 Hours Sepsis New/Unexplained Change in Mental Status Sepsis Action Taken by Nursing Oxygen Flow Rate - Titration Pulse Oximetry Post Tiitration VITALS: Vitals are noted on the nurse's note and reviewed by myself. Vital signs stable. GENERAL: White female with EtOH odor, in no acute distress, nondiaphoretic, well-developed well-nourished. SKIN: The skin was without rashes, erythema, edema, or bruising. There is no tenting of the skin. Capillary reflex less than 2 seconds. HEAD: Normocephalic atraumatic. EARS: External auditory canals clear, EYES: Pupils equal round and reactive to light and accommodation. Conjunctivae without injection, sclerae without icterus. Extraocular movements intact. NOSE: Patent, turbinates without inflammation or discharge. MOUTH: Mucous membranes moist. Pharynx without erythema or exudate. Uvula midline. Airway patent. Tongue does not deviate. NECK: Supple without nuchal rigidity. No lymphadenopathy. No thyromegaly. Cervical spine is nontender. No JVD. HEART: Regular rate and rhythm LUNGS: Clear to auscultation bilaterally without wheezes, rales or rhonchi. No retractions or accessory muscle use. ABDOMEN: Positive bowel sounds x 4. Normal tympanic percussion. Soft, nontender, without masses or organomegaly. Sepulveda sign negative. No guarding or rebound tenderness. No CVA tenderness MUSCULOSKELETAL: No muscle atrophy, erythema, or edema noted. NEURO: Patient was alert and oriented to person place and time. Normal sensation to light and sharp touch. No focal neurological deficits. Course Administered Medications Discontinued Medications Chlordiazepoxide HCl (Chlordiazepoxide Hcl 25 Mg Cap) 50 mg PO NOW ONE Stop: 12/13/22 03:26 Last Admin: 12/13/22 03:42 Dose: 50 mg Documented By: MARY Sodium Chloride (Nss 1000ml) 1,000 mls @ 999 mls/hr IV .Q1H1M KANIKA Stop: 12/13/22 04:30 Last Admin: 12/13/22 04:12 Dose: 999 mls/hr Documented By: WILMER Lorazepam (Lorazepam 2 Mg/1 Ml Vial) 1 mg IV NOW STA Stop: 12/13/22 03:25 Last Admin: 12/13/22 03:44 Dose: 1 mg Documented By: MARY Lorazepam (Lorazepam 2 Mg/1 Ml Vial) 2 mg IV NOW STA Stop: 12/13/22 04:18 Last Admin: 12/13/22 04:34 Dose: 2 mg Documented By: WILMER Multivitamins/Minerals (Cerovite Adv Formula Tab) 1 tab PO ONE STA Stop: 12/13/22 03:25 Last Admin: 12/13/22 03:42 Dose: Not Given Documented By: MARY Ondansetron HCl (Ondansetron Inj 2 Mg/Ml 2 Ml Vial) 4 mg IV NOW STA Stop: 12/13/22 03:39 Last Admin: 12/13/22 04:12 Dose: 4 mg Documented By: WILMER Medical Decision Making Medical Records Attestation: I reviewed the patient's medical records. Home Medications Current Medication List: was personally reviewed by me Laboratory Data Attestation: I reviewed the patient's lab results. 12/13/22 03:37 12/13/22 03:37 Lab Results 12/13/22 12/13/22 12/13/22 Range/Units 03:37 03:37 03:37 WBC 5.34 (4.8-10.8) K/ul RBC 5.22 (4.20-5.40) M/uL Hgb 16.3 H (12.0-16.0) g/dl Hct 46.5 (37.0-47.0) % MCV 89.1 (80.0-100.0) fL MCH 31.2 (25.0-34.0) pg MCHC 35.1 (32.0-36.0) g/dL RDW Std Deviation 44.0 (36.4-46.3) fL RDW Coeff of Diamond 13.5 (11.5-14.5) % Plt Count 294 (130-400) K/uL MPV 10.1 (9.4-12.4) fL Neutrophils % (Manual) 34 % Lymphocytes % (Manual) 49 % Reactive Lymphs % (Man) 12 % Monocytes % (Manual) 4 % Eosinophils % (Manual) 2 % Neutrophils # (Manual) 1.82 (1.40-6.50) K/uL Total Absolute Neuts 1.82 (1.4-6.5) K/uL Lymphocytes # (Manual) 2.62 (1.2-3.4) K/uL Reactive Lymphs # 0.64 K/uL Total Abs Lymphocytes 3.26 (1.2-3.4) K/uL Monocytes # (Manual) 0.21 (0.11-0.59) K/uL Eosinophils # (Manual) 0.11 (0-0.50) K/uL Sodium 142 (136-145) mmol/L Potassium 3.7 (3.5-5.1) mmol/L Chloride 102 (98-107) mmol/L Carbon Dioxide 24 (21-32) mmol/L Anion Gap 16 H (3-11) BUN 7 (6-23) mg/dl Creatinine 0.64 (0.6-1.2) mg/dl Est Cr Clr Drug Dosing 82.7 ml/min Est GFR ( Amer) 114.0 ml/min Est GFR (Non-Af Amer) 98.4 ml/min BUN/Creatinine Ratio 10.9 (10-20) Glucose 86 (70-99(Fasting)) mg/dl Calcium 9.2 (8.6-10.3) mg/dl Magnesium 2.0 (1.7-2.4) mg/dl Total Bilirubin 0.5 (0.2-1.0) mg/dl AST 58 H (13-39) U/L ALT 41 (7-52) U/L Alkaline Phosphatase 55 (34-104) U/L Total Protein 6.9 (6.0-8.3) gm/dl Albumin 4.7 (3.4-5.0) gm/dl Globulin 2.2 L (2.5-4.0) gm/dl Albumin/Globulin Ratio 2.1 H (0.9-2) Ethyl Alcohol mg/dL 287.0 H (<10.0) mg/dl SARS-CoV-2, RNA, NAAT (NEGATIVE) 12/13/22 Range/Units 04:07 WBC (4.8-10.8) K/ul RBC (4.20-5.40) M/uL Hgb (12.0-16.0) g/dl Hct (37.0-47.0) % MCV (80.0-100.0) fL MCH (25.0-34.0) pg MCHC (32.0-36.0) g/dL RDW Std Deviation (36.4-46.3) fL RDW Coeff of Diamond (11.5-14.5) % Plt Count (130-400) K/uL MPV (9.4-12.4) fL Neutrophils % (Manual) % Lymphocytes % (Manual) % Reactive Lymphs % (Man) % Monocytes % (Manual) % Eosinophils % (Manual) % Neutrophils # (Manual) (1.40-6.50) K/uL Total Absolute Neuts (1.4-6.5) K/uL Lymphocytes # (Manual) (1.2-3.4) K/uL Reactive Lymphs # K/uL Total Abs Lymphocytes (1.2-3.4) K/uL Monocytes # (Manual) (0.11-0.59) K/uL Eosinophils # (Manual) (0-0.50) K/uL Sodium (136-145) mmol/L Potassium (3.5-5.1) mmol/L Chloride (98-107) mmol/L Carbon Dioxide (21-32) mmol/L Anion Gap (3-11) BUN (6-23) mg/dl Creatinine (0.6-1.2) mg/dl Est Cr Clr Drug Dosing ml/min Est GFR ( Amer) ml/min Est GFR (Non-Af Amer) ml/min BUN/Creatinine Ratio (10-20) Glucose (70-99(Fasting)) mg/dl Calcium (8.6-10.3) mg/dl Magnesium (1.7-2.4) mg/dl Total Bilirubin (0.2-1.0) mg/dl AST (13-39) U/L ALT (7-52) U/L Alkaline Phosphatase (34-104) U/L Total Protein (6.0-8.3) gm/dl Albumin (3.4-5.0) gm/dl Globulin (2.5-4.0) gm/dl Albumin/Globulin Ratio (0.9-2) Ethyl Alcohol mg/dL (<10.0) mg/dl SARS-CoV-2, RNA, NAAT NEGATIVE (NEGATIVE) MDM Narrative Prior records/ancillary studies reviewed. Triage Nursing notes reviewed. Additional history obtained from nursing. The patient's history was concerning for altered mental status and probable overdose. Differential diagnosis: Etiologies such as toxicologic, infection, hypoglycemia, electrolyte abnormalities, cardiac sources, intracerebral event, neurologic, as well as others were entertained. Physical examination: The patient had normal sensorium. No trauma noted. ER treatment provided: IV NSS 1 L bolus Banana bag was ordered, Ativan Zofran and Librium was also ordered An order was placed for continuous cardiac monitoring. The monitor shows a rate of 60-120 with a sinus rhythm per my interpretation. On reassessment the patient was stable and improving. Diagnostic interpretation by me: ECG: ordered for alcoholism The electrocardiogram was negative for pathologic change. There was no QRS widening or interval prolongation. Normal sinus, poor baseline, no acute ST-T wave changes. Impression normal sinus rhythm poor baseline independent interpreted by myself The labs Independently Interpreted by myself revealed no worrisome leukocytosis, alcohol 287 Consultation: A consultation was placed with the hospitalist. The case was discussed and diagnostics were reviewed. The patient was evaluated in the ER for further treatment. This appears to be consistent with alcoholism requesting detox. Labs were independent interpreted by myself. Patient was started on medications as above. Medicine was consulted and she will be evaluated for admission.. By the evaluation outlined above emergent etiologies such as infection, hypoglycemia, electrolyte abnormalities, cardiac sources, intracerebral event, neurologic,as well as others were deemed relatively unlikely. The pt informed about the findings as listed above. All questions were answered and pleased with the treatment. The chart was completed utilizing [employer] Speech voice recognition software. Grammatical errors, random word insertions, pronoun errors, and incomplete sentences are an occassional consequence of this system due to software limitations, ambient noise, and hardware issues. Any formal questions or concerns about the content, text, or information contained within the body of this dictation should be directly addressed to the physician sociology research assistant for clarification. Impression & Plan Alcohol use disorder, Alcoholic intoxication Discharge Plan Visit Data Chief Complaint: Alcohol Withdrawal Stated Complaint: ALCOHOL WITHDRAWAL, ANXIETY ED Provider: Echo Nuñez ED Midlevel Provider: Krista Neri Discharge Problem: Alcohol use disorder, Alcoholic intoxication Patient Disposition: Being Evaluated by Hospitalist Condition: Fair Forms Stand Alone Forms: [facility], Suicide Prevention Resources Prescriptions Prescriptions: No Action folic acid 1 mg tablet 1,000 mcg PO DAILY Qty: 30 0RF thiamine HCl (vitamin B1) 100 mg tablet 100 mg PO QAM One-A-Day Womens Formula 18 mg iron-400 mcg-500 mg Tablet 1 tab PO DAILY Wegovy 0.25 mg/0.5 mL pen injector 0.25 mg SUBCUT WK Rx Instructions: Every Monday Referrals Referrals: PCP,NO [Primary Care Provider] -
[2022-12-13 04:11] LABS: Hematocrit (blood only) 46.5 % (37.0-47.0); Hemoglobin 16.3 g/dl (12.0-16.0); Mean Corpuscular Hemoglobin 31.2 pg (25.0-34.0); Mean Corpuscular Hgb Conc 35.1 g/dL (32.0-36.0); Mean Corpuscular Volume 89.1 fL (80.0-100.0); Mean Platelet Volume 10.1 fL (9.4-12.4); Platelet Count 294 K/uL (130-400); RDW Coefficient of Variation 13.5 % (11.5-14.5); Red Blood Count 5.22 M/uL (4.20-5.40); White Blood Count 5.34 K/ul (4.8-10.8)
[2022-12-13 04:16] LABS: Albumin Level 4.7 gm/dl (3.4-5.0); Bilirubin,Total 0.5 mg/dl (0.2-1.0); Calcium 9.2 mg/dl (8.6-10.3); Potassium 3.7 mmol/L (3.5-5.1)
[2022-12-13 04:22] LABS: Albumin Globulin Ratio 2.1 (0.9-2); BUN Creatinine Ratio 10.9 (10-20); Creatinine Clr Calc Pharmacy 82.7 ml/min; Est GFR (Non-African American) 98.4 ml/min; Globulin 2.2 gm/dl (2.5-4.0); Total Protein 6.9 gm/dl (6.0-8.3)
[2022-12-13 04:40] LABS: ALC (manual) 3.26 K/uL (1.2-3.4); ANC (manual) 1.82 K/uL (1.4-6.5); Eosinophils # (manual) 0.11 K/uL (0-0.50); Eosinophils % (manual) 2 %; Lymphocytes # (manual) 2.62 K/uL (1.2-3.4); Lymphocytes % (manual) 49 %; Monocytes # (manual) 0.21 K/uL (0.11-0.59); Monocytes % (manual) 4 %; Neutrophils # (manual) 1.82 K/uL (1.40-6.50); Neutrophils % (manual) 34 %; Reactive Lymphocytes # (manual) 0.64 K/uL; Reactive Lymphocytes % (manual) 12 %
[2022-12-13] MEDS ORDERED: NITROGLYCERIN SL 0.4 MG/TAB TAB SL PRN (06:40)
[2022-12-13] MEDS ORDERED: chlordiazePOXIDE ALCOHOL WITHDRAWL 50MG PO STA (06:40)
[2022-12-13] MEDS ORDERED: ONDANSETRON INJ 2 MG/ML 2 ML VIAL IV PRN (06:40)
[2022-12-13] MEDS ORDERED: Ativan IV Alcohol Withdrawal--Active Protocol IV PRN (06:40)
[2022-12-13] MEDS ORDERED: cloNIDine HCL 0.1 MG TAB PO PRN (06:40)
[2022-12-13] MEDS ORDERED: LORazepam 2 MG/1 ML VIAL IV PRN ×3 (06:40)
[2022-12-13 07:23] LABS: Estimated Average Glucose 103 mg/dl; Hemoglobin A1C 5.2 % (4.5-5.6)
[2022-12-13 07:32] LABS: Basophils # (auto) 0.02 K/uL (0-0.2); Basophils % (auto) 0.6 %; Eosinophils # (auto) 0.03 K/uL (0-0.50); Eosinophils % (auto) 0.9 %; Hematocrit (blood only) 39.9 % (37.0-47.0); Hemoglobin 13.4 g/dl (12.0-16.0); Immature Granulocytes # (auto) 0.01 K/uL (0.01-0.20); Immature Granulocytes % (auto) 0.3 %; Lymphocytes # (auto) 1.52 K/uL (1.2-3.4); Mean Corpuscular Hemoglobin 30.8 pg (25.0-34.0); Mean Corpuscular Hgb Conc 33.6 g/dL (32.0-36.0); Mean Corpuscular Volume 91.7 fL (80.0-100.0); Mean Platelet Volume 9.9 fL (9.4-12.4); Monocytes # (auto) 0.15 K/uL (0.11-0.59); Monocytes % (auto) 4.4 %; Neutrophils # (auto) 1.65 K/uL (1.40-6.50); Neutrophils % (auto) 48.8 %; Platelet Count 203 K/uL (130-400); RDW Coefficient of Variation 13.5 % (11.5-14.5); RDW Standard Deviation 46.4 fL (36.4-46.3); Red Blood Count 4.35 M/uL (4.20-5.40); White Blood Count 3.38 K/ul (4.8-10.8)
[2022-12-13 07:36] LABS: Albumin Globulin Ratio 2.3 (0.9-2); Albumin Level 3.7 gm/dl (3.4-5.0); BUN Creatinine Ratio 13.2 (10-20); Bilirubin,Total 0.4 mg/dl (0.2-1.0); Calcium 7.6 mg/dl (8.6-10.3); Creatinine Clr Calc Pharmacy 104.1 ml/min; Est GFR (African American) 121.3 ml/min; Est GFR (Non-African American) 104.7 ml/min; Globulin 1.6 gm/dl (2.5-4.0); Potassium 4.2 mmol/L (3.5-5.1); Total Protein 5.3 gm/dl (6.0-8.3)
[2022-12-13] MEDS: chlordiazePOXIDE HCl 25 MG CAP PO SCH ×2 (07:51→10:33)
[2022-12-13] MEDS ORDERED: HEPARIN SOD 5,000 UNIT/0.5 ML VIAL SQ SCH (08:00)
--- NOTE | 2022-12-13 08:42 | History and Physical Report ---
DATE OF ADMISSION: 12/13/2022 CHIEF COMPLAINT: Alcohol withdrawal. HISTORY OF PRESENT ILLNESS: A 57-year-old female with past medical history of depression, anxiety, history of alcohol abuse seems long-standing alcohol abuse presents with alcohol withdrawal. The patient was here in July with alcohol abuse and also she was admitted on 11/21/22 with alcohol abuse and signed out AMA at that time. Again, comes back with alcoholism. The patient is currently sedated with Ativan and Librium in the ER, currently very sleepy, constantly going back to sleep, not able to get much history from the patient. The patient says she is drinking 1 to 2 bottles of wine. Denies chest pain. Denies shortness of breath. No cough. Currently, no nausea or abdominal pain. Hemodynamically stable. Could not get much history from the patient currently as she is very sleepy. ALLERGIES: AMOXICILLIN AND AZITHROMYCIN. PAST MEDICAL HISTORY: As mentioned above and also has acute duodenal ulcer in January of 2013, arthritis, hyperlipidemia, history of endocarditis, which seems to be treated with 6 weeks of IV antibiotics, history of mitral valve prolapse, and scoliosis. PAST SURGICAL HISTORY: History of blepharoplasty. FAMILY HISTORY: Significant for brother has had ND at age 55 and diabetes. Father has CAD, diabetes, and hypertension. Mother has CAD. SOCIAL HISTORY: No smoking. Alcohol: Wine and hard liquor. No substance abuse as per records. MEDICATIONS: Seems to be on folic acid, multivitamins, thiamine, wegovy 0.25mg subcutaneous weekly. REVIEW OF SYSTEMS: Could not obtain complete review of systems as the patient is sleepy and sedated. PHYSICAL EXAMINATION: GENERAL: The patient is drowsy, does not seem to be in acute distress. VITAL SIGNS: Temperature 36.6, pulse 102, respiratory rate 18, blood pressure 115/65, and oxygen saturation 100% on 3 L. HEENT: Pupils are sluggish, but reactive to light. Oral mucosa moist. NECK: No JVD. No neck masses seen. CARDIOVASCULAR: S1 and S2 heard. Regular rate and rhythm. No murmur. No gallop. RESPIRATORY SYSTEM: Normal AP diameter. No accessory muscle use. No wheezing. No crackles. ABDOMEN: Soft, bowel sounds present, nontender, and no distention. CENTRAL NERVOUS SYSTEM: Drowsy, arouses on calling, and answers simple questions. Moves extremities. No facial droop seen. Speech is low volume. EXTREMITIES: No edema. No erythema. LABORATORY DATA: WBC 5.3, hemoglobin 16.3, hematocrit 46.5, and platelets 294. Sodium 142, potassium 3.7, chloride 102, bicarbonate 24, BUN 7, creatinine 0.6, serum glucose 86, calcium 9.2, and magnesium 2. Total bilirubin 0.5, AST 58, ALT 41, and alkaline phosphatase 55. Ethyl alcohol is 287. SARS-CoV-2 rapid test negative. ASSESSMENT AND PLAN: This 57-year-old female presents with alcohol withdrawal. 1. Alcoholism and alcohol withdrawal, multiple admissions for same , signed oout AMA last admission, was started on Librium and Ativan in the ER. We will continue with Librium protocol with IV Ativan p.r.n. Received banana bag. We will continue with IV thiamine, IV folic acid, and multivitamins. Closely monitor in med tele. 2. Questionable history of depression and anxiety. May consider psych consult when stable. 3. Questionable history of diabetes, we will get HbA1c levels. 4. Deep venous thrombosis prophylaxis, heparin subcutaneously. 5. Disposition: Closely monitor in med tele. Expect to discharge home and follow with family doctor. 6. Hx of endocarditis. Job ID: [id number] [facility]ITALJustin
[2022-12-13 08:48] LABS: Vitamin B12 440 pg/ml (180-914)
[2022-12-13] MEDS ORDERED: THIAMINE HCL 100 MG in SYRINGE 9 ML IV SCH (09:00)
[2022-12-13] MEDS ORDERED: CEROVITE ADV FORMULA TAB PO SCH (09:00)
[2022-12-13] MEDS ORDERED: FOLIC ACID 1 MG in SYRINGE 9.8 ML IV SCH (09:00)
--- NOTE | 2022-12-13 10:37 | Electrocardiogram Report ---
Test Reason : Blood Pressure : / mmHG Vent. Rate : 094 BPM Atrial Rate : 000 BPM P-R Int : 000 ms QRS Dur : 082 ms QT Int : 366 ms P-R-T Axes : 000 012 023 degrees QTc Int : 457 ms Normal sinus rhythm Low voltage QRS possible Inferior infarct (cited on or before 21-NOV-2022) Poor R wave progression, consider anterior IN vs. lead placement vs. LVH Nonspecific ST abnormality Abnormal ECG Reconfirmed by Waldemar Dutton ([id number]) on 12/13/2022 10:37:26 AM Referred By: REFERRED SELF Confirmed By:Randy Dutton
--- NOTE | 2022-12-13 13:46 | Discharge Summary ---
Date of Service December 13, 2022 Admission HPI Per Admitting Provider A 57-year-old female with past medical history of depression, anxiety, history of alcohol abuse seems long-standing alcohol abuse presents with alcohol withdrawal. The patient was here in July with alcohol abuse and also she was admitted on 11/21/22 with alcohol abuse and signed out AMA at that time. Again, comes back with alcoholism. The patient is currently sedated with Ativan and Librium in the ER, currently very sleepy, constantly going back to sleep, not able to get much history from the patient. The patient says she is drinking 1 to 2 bottles of wine. Denies chest pain. Denies shortness of breath. No cough. Currently, no nausea or abdominal pain. Hemodynamically stable. Could not get much history from the patient currently as she is very sleepy. Admission Exam Per Admitting Provider GENERAL: The patient is drowsy, does not seem to be in acute distress. VITAL SIGNS: Temperature 36.6, pulse 102, respiratory rate 18, blood pressure 115/65, and oxygen saturation 100% on 3 L. HEENT: Pupils are sluggish, but reactive to light. Oral mucosa moist. NECK: No JVD. No neck masses seen. CARDIOVASCULAR: S1 and S2 heard. Regular rate and rhythm. No murmur. No gallop. RESPIRATORY SYSTEM: Normal AP diameter. No accessory muscle use. No wheezing. No crackles. ABDOMEN: Soft, bowel sounds present, nontender, and no distention. CENTRAL NERVOUS SYSTEM: Drowsy, arouses on calling, and answers simple questions. Moves extremities. No facial droop seen. Speech is low volume. EXTREMITIES: No edema. No erythema Principal Diagnosis Alcohol abuse Alcohol withdrawal Discharge Exam Was not seen prior to leaving AMA Discharge Data Allergies Allergy/AdvReac Type Severity Reaction Status Date / Time amoxicillin Allergy Intermediate RASH/HIVES Verified 10/13/22 00:52 azithromycin AdvReac Mild Gastrointestinal Verified 08/26/22 15:20 Upset Consultations 12/13/22 04:33 ED Decision to Admit Stat 12/13/22 04:41 ED Decision to Admit Stat Hospital Course (1) Alcoholic intoxication: (2) Alcohol use disorder: Plan Patient was admitted for alcohol withdrawal as she wanted to detox and was tremulous per ER physician Shortly after admission to the medical floor, she signed out AMA before I could see her Total Time Total Time Spent Total Time Spent (In Minutes): 0 Discharge Plan Discharge Items Patient Disposition: Against Medical Advice Reason For Visit: ALCOHOL WITHDRAWAL Condition on Discharge: Fair Follow-up/Referrals: PCP,NO [Primary Care Provider] - [facility] Medications and DC Order Prescriptions: No Action folic acid 1 mg tablet 1,000 mcg PO DAILY Qty: 30 0RF thiamine HCl (vitamin B1) 100 mg tablet 100 mg PO QAM One-A-Day Womens Formula 18 mg iron-400 mcg-500 mg Tablet 1 tab PO DAILY Wegovy 0.25 mg/0.5 mL pen injector 0.25 mg SUBCUT WK Rx Instructions: Every Monday Discharge Orders: Left Against Medical Advice (Routine); Ordered 12/13/22 Ordered By: Mira Waldrop Admission Data Admit Date/Time: 12/13/22 05:33 Attending Provider: Mira Waldrop I. Admit Provider: Bonifacio Mendoza Primary Care Provider: PCP,NO Other Providers: Bonifacio Mendoza
[2022-12-14] MEDS ORDERED: chlordiazePOXIDE HCl 25 MG CAP PO SCH (09:30)
[2022-12-15] MEDS ORDERED: chlordiazePOXIDE HCl 25 MG CAP PO SCH (09:30)
== END 2022-12-13 12:05 | disposition left against medical advice (07) ==
LOC: ED 03:13 → 2S 05:33 → INTOOBSV 05:33 → 2S 06:14